=== PATIENT | female | born 1960 | race Caucasian/White ===

== ENCOUNTER 2024-10-03 07:50 | Inpatient (IN) | payer OTHER ==
[2024-10-03 09:28] LABS: VENOUS BASE EXCESS 7.2 mmol/L (-2-2); VENOUS O2 SATURATION 33.5 % (70-80); VENOUS PCO2 46.8 mmHg (38-52); VENOUS PH 7.453 (7.310-7.410)
[2024-10-03 09:32] LABS: BASO % 0.4 % (0-2.0); EOS % 0.4 % (0-4.5); HEMATOCRIT 29.1 % (32.4-45.2); HEMOGLOBIN 8.9 GM/dL (10.7-15.3); MCH 23.7 pg (25.7-33.7); MCHC 30.8 g/dl (32.0-36.0); MEAN CELL VOLUME 77.2 fl (80-96); MEAN PLT VOLUME 7.1 fl (7.5-11.1); MONO % 7.1 % (3.8-10.2); NEUT % 75.1 % (42.8-82.8); PLATELET COUNT 466 10^3/uL (134-434); RBC 3.77 M/mm3 (3.60-5.2); RDW 18.1 % (11.6-15.6); WHITE BLOOD COUNT 7.5 K/mm3 (4.0-10.0)
[2024-10-03 09:39] LABS: INR 1.58 (0.83-1.09); PROTHROMBIN TIME (PATIENT) 17.9 SEC (9.7-13.0)
[2024-10-03 09:42] LABS: ACTIVATED PTT 42.2 SECONDS (25.2-36.5)
[2024-10-03 09:56] LABS: CHLORIDE 98 mmol/L (98-107); POTASSIUM 2.8 mmol/L (3.5-5.1); SODIUM 137 mmol/L (136-145)
[2024-10-03 09:58] LABS: CALCIUM 7.9 mg/dL (8.5-10.1)
[2024-10-03 09:59] LABS: ALBUMIN 1.4 g/dl (3.4-5.0); ANION GAP 9 mmol/L (4-13); BLOOD UREA NITROGEN 9.6 mg/dL (7-18); CO2 31 mmol/L (21-32); GLUCOSE,RANDOM 182 mg/dL (74-106)
[2024-10-03 10:02] LABS: CREATININE 0.3 mg/dL (0.55-1.3); SGOT/AST 15 U/L (15-37); SGPT/ALT 14 U/L (13-61)
[2024-10-03] MEDS ORDERED: PIPERACILLIN/TAZOB 4.5 GM 4.5 GM/100 ML BAG IVPB ONE (10:02)
[2024-10-03] MEDS ORDERED: VANCOMYCIN 1 GRAM (PRE-DOCKED) 1,000 MG/250 ML BAG IVPB ONE (10:02)
[2024-10-03 10:04] LABS: BILIRUBIN,TOTAL 0.4 mg/dL (0.2-1); TOT PROT 6.7 g/dl (6.4-8.2)
[2024-10-03 10:05] LABS: ALK PHOS 107 U/L (45-117)
[2024-10-03] MEDS: PIPERACILLIN/TAZOB 4.5 GM 4.5 GM in DEXTROSE 5%-WATER 100 ML IVPB ONE (10:07)
[2024-10-03 10:30] LABS: MAGNESIUM 1.1 mg/dL (1.8-2.4)
[2024-10-03] MEDS ORDERED: KCL 10 MEQ IVPB 10 MEQ/100 ML INFUS.BAG IVPB SCH (10:30)
[2024-10-03] MEDS ORDERED: KCL 10 MEQ IVPB 10 MEQ/100 ML INFUS.BAG IVPB ONE ×4 (10:32→16:01)
[2024-10-03] MEDS: KCL 10 MEQ IVPB 10 MEQ/100 ML INFUS.BAG IVPB SCH ×2 (10:40→12:32)
[2024-10-03 11:04] LABS: ERYTHROCYTE SEDIMENTATION RATE 106 mm/hr (0-30)
[2024-10-03] MEDS ORDERED: MAGNESIUM SULFATE IN WATER 2 GM/50 ML IVPB IVPB ONE (11:21)
[2024-10-03] MEDS: MAGNESIUM SULF 50% (8.12 MEQ/2 ML-1 GM VIAL) IVPB ONE (11:33)
[2024-10-03] MEDS: VANCOMYCIN 1,000 MG in DEXTROSE 5%-WATER - 250 ML IVPB ONE (12:13)
[2024-10-03 14:25] LABS: EPI CELLS 0 /uL (0-25.1); HYALINE CASTS 2 /uL (0-3.1); URINE APPEARANCE CLOUDY; URINE BACTERIA >9,000 /uL (0-1359); URINE BILIRUBIN NEGATIVE (NEGATIVE); URINE COLOR YELLOW; URINE GLUCOSE (UA) 1+ (NEGATIVE); URINE KETONE NEGATIVE (NEGATIVE); URINE LEUK ESTERASE 3+ (NEGATIVE); URINE NITRITE NEGATIVE (NEGATIVE); URINE PROTEIN TRACE (NEGATIVE); URINE RBC 16 /uL (0-23.9); URINE UROBILINOGEN 0.2 mg/dL (0.2-1.0); URINE WBC 969 /uL (0-25.8)
[2024-10-03 14:45] LABS: YEAST NONE SEEN (NEGATIVE)
[2024-10-03] MEDS ORDERED: ACETAMINOPHEN 1000 MG/100 ML BAG IVPB PRN (22:11)
[2024-10-03] MEDS: D5-1/2NS+20 MEQ KCL - 20 MEQ/1,000 ML INFUS.BAG IV SCH (23:51)
[2024-10-04] MEDS: PIPERACILLIN/TAZOB 3.375 GM 50 ML IVPB SCH (02:17)
[2024-10-04] MEDS: MAGNESIUM 1GM/D5W 100ML - 100 ML IVPB IVPB ONE (08:57)
[2024-10-04] MEDS: POTASSIUM CHLORIDE ORAL LIQUID 20 MEQ/15 ML PO ONE ×2 (09:07→12:18)
[2024-10-04 09:57] LABS: BASO % 0.2 % (0-2.0); EOS % 0.3 % (0-4.5); HEMATOCRIT 26.8 % (32.4-45.2); HEMOGLOBIN 8.4 GM/dL (10.7-15.3); LYMPH % 13.3 % (8-40); MCH 23.5 pg (25.7-33.7); MCHC 31.2 g/dl (32.0-36.0); MEAN CELL VOLUME 75.1 fl (80-96); MEAN PLT VOLUME 7.1 fl (7.5-11.1); MONO % 5.7 % (3.8-10.2); NEUT % 80.5 % (42.8-82.8); PLATELET COUNT 488 10^3/uL (134-434); RBC 3.57 M/mm3 (3.60-5.2); RDW 17.9 % (11.6-15.6); WHITE BLOOD COUNT 7.6 K/mm3 (4.0-10.0)
[2024-10-04 10:13] LABS: CHLORIDE 101 mmol/L (98-107); SODIUM 139 mmol/L (136-145)
[2024-10-04 10:16] LABS: ALBUMIN 1.3 g/dl (3.4-5.0); ANION GAP 7 mmol/L (4-13); BLOOD UREA NITROGEN 3.2 mg/dL (7-18); CALCIUM 8.2 mg/dL (8.5-10.1); CO2 31 mmol/L (21-32); POTASSIUM 2.8 mmol/L (3.5-5.1)
[2024-10-04 10:17] LABS: GLUCOSE,RANDOM 68 mg/dL (74-106)
[2024-10-04 10:19] LABS: CREATININE < 0.2 mg/dL (0.55-1.3); SGOT/AST 9 U/L (15-37); SGPT/ALT 13 U/L (13-61)
[2024-10-04 10:20] LABS: BILIRUBIN,TOTAL 0.4 mg/dL (0.2-1)
[2024-10-04 10:21] LABS: TOT PROT 6.1 g/dl (6.4-8.2)
[2024-10-04 10:23] LABS: ALK PHOS 96 U/L (45-117)
[2024-10-04] MEDS: POTASSIUM CHLORIDE TABS 20 MEQ TABLET.ER (FP) PO SCH (10:56)
[2024-10-04] MEDS: PIPERACILLIN/TAZOB 3.375 GM 3.375 GM in DEXTROSE 5%-WATER - 50 ML IVPB SCH (14:08)
[2024-10-04] MEDS ORDERED: KCL 10 MEQ IVPB 10 MEQ/100 ML INFUS.BAG IVPB SCH (15:00)
[2024-10-04] MEDS ORDERED: KETAMINE HCL 200 MG/20 ML VIAL ONE (17:32)
[2024-10-04] MEDS ORDERED: PROPOFOL 20 ML ONE (17:33)
[2024-10-04] MEDS ORDERED: PIPERACILLIN/TAZOB 4.5 GM 4.5 GM/100 ML BAG IVPB SCH (18:00)
[2024-10-04] MEDS ORDERED: ONDANSETRON 4 MG/2 ML VIAL IVPUSH PRN ×2 (18:13→19:01)
[2024-10-04] MEDS ORDERED: LACTATED RINGERS SOLUTION 1,000 ML IV SCH ×2 (18:15→19:01)
[2024-10-04] MEDS ORDERED: ONDANSETRON 4 MG/2 ML VIAL ONE (18:17)
[2024-10-04] MEDS ORDERED: ACETAMINOPHEN 1000 MG/100 ML BAG IVPB PRN (19:01)
[2024-10-04] MEDS: D5-1/2NS+20 MEQ KCL - 20 MEQ/1,000 ML INFUS.BAG IV SCH (19:14)
[2024-10-05] MEDS: PIPERACILLIN/TAZOB 4.5 GM 4.5 GM/100 ML BAG IVPB SCH (03:07)
[2024-10-05] MEDS: ACETAMINOPHEN 1000 MG/100 ML BAG IVPB PRN (09:12)
[2024-10-05 09:17] LABS: BASO % 0.1 % (0-2.0); HEMATOCRIT 25.8 % (32.4-45.2); LYMPH % 10.7 % (8-40); MCH 23.6 pg (25.7-33.7); MCHC 31.1 g/dl (32.0-36.0); MEAN CELL VOLUME 75.8 fl (80-96); MEAN PLT VOLUME 7.1 fl (7.5-11.1); MONO % 3.6 % (3.8-10.2); NEUT % 85.6 % (42.8-82.8); PLATELET COUNT 550 10^3/uL (134-434); RBC 3.41 M/mm3 (3.60-5.2); RDW 17.7 % (11.6-15.6); WHITE BLOOD COUNT 9.6 K/mm3 (4.0-10.0)
[2024-10-05] MEDS: METOPROLOL TARTRATE 25 MG TABLET (FP) PO SCH (09:17)
[2024-10-05 09:19] LABS: INR 1.35 (0.83-1.09); PROTHROMBIN TIME (PATIENT) 15.4 SEC (9.7-13.0)
[2024-10-05 09:40] LABS: CHLORIDE 106 mmol/L (98-107); POTASSIUM 3.7 mmol/L (3.5-5.1); SODIUM 142 mmol/L (136-145)
[2024-10-05 09:46] LABS: ALBUMIN 1.5 g/dl (3.4-5.0); CALCIUM 8.1 mg/dL (8.5-10.1)
[2024-10-05 09:47] LABS: ANION GAP 7 mmol/L (4-13); CO2 28 mmol/L (21-32); GLUCOSE,RANDOM 61 mg/dL (74-106); MAGNESIUM 1.7 mg/dL (1.8-2.4)
[2024-10-05 09:48] LABS: BLOOD UREA NITROGEN 1.9 mg/dL (7-18); SGOT/AST 8 U/L (15-37); SGPT/ALT 11 U/L (13-61)
[2024-10-05 09:50] LABS: BILIRUBIN,TOTAL 0.3 mg/dL (0.2-1); CREATININE 0.3 mg/dL (0.55-1.3); PHOSPHOROUS 3.9 mg/dL (2.5-4.9); TOT PROT 6.1 g/dl (6.4-8.2)
[2024-10-05 09:52] LABS: ALK PHOS 110 U/L (45-117)
[2024-10-05 11:21] LABS: RETICULOCYTES 1.86 % (0.5-1.5)
[2024-10-05] MEDS: MAGNESIUM 2GM/50ML STERILE WATER IVPB IVPB ONE (13:15)
[2024-10-05] MEDS: SODIUM CHLORIDE 1,000 ML IV SCH (14:29)
[2024-10-05] MEDS: MEROPENEM-0.9% SODIUM CHLORIDE 1 GM/50 ML BAG IVPB SCH (17:43)
[2024-10-05] MEDS: ATORVASTATIN CA 40 MG TABLET (FP) PO SCH (23:27)
[2024-10-06 10:31] LABS: BASO % 0.3 % (0-2.0); EOS % 0.1 % (0-4.5); HEMATOCRIT 22.5 % (32.4-45.2); HEMOGLOBIN 7.1 GM/dL (10.7-15.3); LYMPH % 17.3 % (8-40); MCH 23.9 pg (25.7-33.7); MCHC 31.5 g/dl (32.0-36.0); MEAN CELL VOLUME 75.8 fl (80-96); MEAN PLT VOLUME 6.9 fl (7.5-11.1); MONO % 5.1 % (3.8-10.2); NEUT % 77.2 % (42.8-82.8); PLATELET COUNT 471 10^3/uL (134-434); RBC 2.96 M/mm3 (3.60-5.2); RDW 17.8 % (11.6-15.6); WHITE BLOOD COUNT 7.9 K/mm3 (4.0-10.0)
[2024-10-06 11:03] LABS: CHLORIDE 104 mmol/L (98-107); SODIUM 139 mmol/L (136-145)
[2024-10-06 11:05] LABS: ALBUMIN 1.3 g/dl (3.4-5.0); BLOOD UREA NITROGEN 1.8 mg/dL (7-18); CALCIUM 7.2 mg/dL (8.5-10.1); CO2 25 mmol/L (21-32); GLUCOSE,RANDOM 135 mg/dL (74-106); MAGNESIUM 1.4 mg/dL (1.8-2.4)
[2024-10-06 11:08] LABS: CREATININE < 0.2 mg/dL (0.55-1.3); SGOT/AST 9 U/L (15-37); SGPT/ALT 9 U/L (13-61)
[2024-10-06 11:09] LABS: PHOSPHOROUS 3.3 mg/dL (2.5-4.9)
[2024-10-06 11:11] LABS: ALK PHOS 89 U/L (45-117); BILIRUBIN,TOTAL 0.4 mg/dL (0.2-1); TOT PROT 5.4 g/dl (6.4-8.2)
[2024-10-06 11:28] LABS: ANION GAP 11 mmol/L (4-13); POTASSIUM 2.7 mmol/L (3.5-5.1)
[2024-10-06] MEDS: MAGNESIUM 2GM/50ML STERILE WATER IVPB IVPB ONE (12:03)
[2024-10-06] MEDS: POTASSIUM CHLORIDE ORAL LIQUID 20 MEQ/15 ML PO ONE (12:05)
[2024-10-06] MEDS ORDERED: MULTIVITAMINS THER W-MINERALS COMBO TABLET (FP) PO SCH (13:00)
[2024-10-06] MEDS: KCL 10 MEQ IVPB 10 MEQ/100 ML INFUS.BAG IVPB SCH ×2 (13:07→22:21)
[2024-10-06] MEDS: MULTIVITAMINS THER W-MINERALS COMBO TABLET (FP) PO SCH (13:24)
[2024-10-06] MEDS: HEPARIN NA (PORCINE) 5,000 UNITS/ML 1ML VIAL SQ SCH (15:03)
[2024-10-06] MEDS: SODIUM CHLORIDE 0.9% 250 ML INFUS.BAG IV ONE (17:30)
[2024-10-06] MEDS ORDERED: RAPID SEQUENCE INTUBATION KIT NR ONE (17:42)
[2024-10-06] MEDS ORDERED: PROPOFOL 1,000,000 MCG/100 ML VIAL ONE (18:19)
[2024-10-06] MEDS: PROPOFOL 1,000,000 MCG/100 ML VIAL IVPB SCH (18:34)
[2024-10-06] MEDS: AMINO ACIDS/PROTEIN HYDROLYS 30 ML LIQUID.PKT PO SCH (18:44)
[2024-10-06] MEDS: MAGNESIUM SULFATE IN WATER 2 GM/50 ML IVPB IVPB ONE (19:38)
[2024-10-06 20:37] LABS: ARTERIAL BLD GAS O2 SATURATION 99.9 % (95-98); ARTERIAL BLOOD GAS BASE EXCESS -2.2 mmol/L (-2-2); ARTERIAL BLOOD GAS PO2 433.4 mmHg (80-100); ARTERIAL BLOOD GAS pH 7.579 (7.350-7.450)
[2024-10-06 20:39] LABS: VENT MODE A/C; VENT RATE 12
[2024-10-06] MEDS: FENTANYL CITRATE/PF 50 MCG/ML VIAL IVPUSH PRN (21:38)
[2024-10-06 21:39] LABS: HEMATOCRIT 24.1 % (32.4-45.2); HEMOGLOBIN 7.3 GM/dL (10.7-15.3); MCH 22.9 pg (25.7-33.7); MCHC 30.2 g/dl (32.0-36.0); MEAN CELL VOLUME 75.8 fl (80-96); MEAN PLT VOLUME 6.9 fl (7.5-11.1); PLATELET COUNT 489 10^3/uL (134-434); RBC 3.18 M/mm3 (3.60-5.2); WHITE BLOOD COUNT 12.7 K/mm3 (4.0-10.0)
[2024-10-06 21:40] LABS: BASO % 0.1 % (0-2.0); HEMATOCRIT 23.3 % (32.4-45.2); HEMOGLOBIN 7.1 GM/dL (10.7-15.3); LYMPH % 9.3 % (8-40); MCH 23.1 pg (25.7-33.7); MCHC 30.6 g/dl (32.0-36.0); MEAN CELL VOLUME 75.5 fl (80-96); MEAN PLT VOLUME 6.9 fl (7.5-11.1); MONO % 5.6 % (3.8-10.2); PLATELET COUNT 492 10^3/uL (134-434); RBC 3.09 M/mm3 (3.60-5.2); RDW 18.4 % (11.6-15.6); WHITE BLOOD COUNT 13.7 K/mm3 (4.0-10.0)
[2024-10-06 21:57] LABS: CHLORIDE 104 mmol/L (98-107); INR 1.17 (0.83-1.09); PROTHROMBIN TIME (PATIENT) 13.2 SEC (9.7-13.0); SODIUM 139 mmol/L (136-145)
[2024-10-06 21:58] LABS: CALCIUM 7.2 mg/dL (8.5-10.1); POTASSIUM 2.8 mmol/L (3.5-5.1)
[2024-10-06 21:59] LABS: ACTIVATED PTT 28.8 SECONDS (25.2-36.5); ALBUMIN 1.4 g/dl (3.4-5.0); ANION GAP 13 mmol/L (4-13); BLOOD UREA NITROGEN 3.6 mg/dL (7-18); CO2 22 mmol/L (21-32); GLUCOSE,RANDOM 223 mg/dL (74-106); MAGNESIUM 2.3 mg/dL (1.8-2.4)
[2024-10-06 22:02] LABS: CREATININE 0.2 mg/dL (0.55-1.3); PHOSPHOROUS 2.4 mg/dL (2.5-4.9); SGOT/AST 8 U/L (15-37); SGPT/ALT 8 U/L (13-61)
[2024-10-06 22:03] LABS: PHOSPHOROUS 2.5 mg/dL (2.5-4.9)
[2024-10-06 22:04] LABS: BILIRUBIN,TOTAL 0.5 mg/dL (0.2-1); TOT PROT 5.7 g/dl (6.4-8.2)
[2024-10-06 22:05] LABS: ALK PHOS 87 U/L (45-117)
[2024-10-07 07:20] LABS: BASO % 0.3 % (0-2.0); EOS % 0.1 % (0-4.5); HEMOGLOBIN 7.1 GM/dL (10.7-15.3); LYMPH % 17.2 % (8-40); MCH 23.7 pg (25.7-33.7); MCHC 30.7 g/dl (32.0-36.0); MEAN PLT VOLUME 6.8 fl (7.5-11.1); MONO % 7.3 % (3.8-10.2); NEUT % 75.1 % (42.8-82.8); PLATELET COUNT 457 10^3/uL (134-434); RBC 2.99 M/mm3 (3.60-5.2); RDW 18.6 % (11.6-15.6); WHITE BLOOD COUNT 9.5 K/mm3 (4.0-10.0)
[2024-10-07 07:31] LABS: POTASSIUM 3.4 mmol/L (3.5-5.1)
[2024-10-07 07:35] LABS: ALBUMIN 1.4 g/dl (3.4-5.0); BLOOD UREA NITROGEN 4.7 mg/dL (7-18); CALCIUM 7.4 mg/dL (8.5-10.1)
[2024-10-07 07:38] LABS: CREATININE 0.3 mg/dL (0.55-1.3); PHOSPHOROUS 2.5 mg/dL (2.5-4.9)
[2024-10-07 07:40] LABS: BILIRUBIN,TOTAL 0.5 mg/dL (0.2-1); TOT PROT 5.6 g/dl (6.4-8.2)
[2024-10-07 09:21] LABS: ERYTHROCYTE SEDIMENTATION RATE 85 mm/hr (0-30)
[2024-10-07] MEDS: KCL 10 MEQ IVPB 10 MEQ/100 ML INFUS.BAG IVPB SCH (09:21)
[2024-10-07 10:49] LABS: ARTERIAL BLD GAS O2 SATURATION 99.5 % (95-98); ARTERIAL BLOOD GAS BASE EXCESS -0.7 mmol/L (-2-2); ARTERIAL BLOOD GAS PO2 189.6 mmHg (80-100); ARTERIAL BLOOD GAS pH 7.531 (7.350-7.450)
[2024-10-07 11:02] LABS: ALLENS TEST POSITIVE
[2024-10-07 11:04] LABS: VENT MODE A/C
[2024-10-07 11:09] LABS: VENT RATE 12
[2024-10-07] MEDS ORDERED: levETIRAcetam 500 MG/5 ML INJECTION VIAL IVPB ONE (15:18)
[2024-10-07] MEDS: COLLAGENASE CLOSTRIDIUM HIST. 30 GRAMS TUBE TP SCH (18:02)
[2024-10-07 18:36] LABS: POTASSIUM 4.1 mmol/L (3.5-5.1)
[2024-10-07 18:38] LABS: CALCIUM 8.1 mg/dL (8.5-10.1)
[2024-10-07 18:39] LABS: ALBUMIN 1.5 g/dl (3.4-5.0)
[2024-10-07 18:42] LABS: CREATININE 0.3 mg/dL (0.55-1.3)
[2024-10-07 18:43] LABS: BILIRUBIN,TOTAL 0.5 mg/dL (0.2-1)
[2024-10-07 18:44] LABS: TOT PROT 5.6 g/dl (6.4-8.2)
[2024-10-07] MEDS: INSULIN ASPART SLIDING SCALE (NOVOLOG) 1 VIAL SQ SCH (22:02)
[2024-10-07] MEDS: AMINO ACIDS 4.25%/D5W 1,000 ML IV SCH (22:03)
[2024-10-08 07:51] LABS: HEMATOCRIT 26.6 % (32.4-45.2); HEMOGLOBIN 8.1 GM/dL (10.7-15.3); MCH 23.5 pg (25.7-33.7); MCHC 30.7 g/dl (32.0-36.0); MEAN CELL VOLUME 76.8 fl (80-96); MEAN PLT VOLUME 6.8 fl (7.5-11.1); PLATELET COUNT 486 10^3/uL (134-434); RBC 3.46 M/mm3 (3.60-5.2); RDW 18.5 % (11.6-15.6); WHITE BLOOD COUNT 11.9 K/mm3 (4.0-10.0)
[2024-10-08 07:58] LABS: POTASSIUM 3.9 mmol/L (3.5-5.1)
[2024-10-08 08:05] LABS: CREATININE 0.4 mg/dL (0.55-1.3); PHOSPHOROUS 2.5 mg/dL (2.5-4.9)
[2024-10-08 08:06] LABS: ALBUMIN 1.6 g/dl (3.4-5.0); CALCIUM 8.1 mg/dL (8.5-10.1)
[2024-10-08 08:07] LABS: BILIRUBIN,TOTAL 0.4 mg/dL (0.2-1); BLOOD UREA NITROGEN 7.8 mg/dL (7-18); MAGNESIUM 1.7 mg/dL (1.8-2.4); TOT PROT 6.1 g/dl (6.4-8.2)
[2024-10-08] MEDS ORDERED: PROPOFOL 1,000,000 MCG/100 ML VIAL IVPB SCH (14:33)
[2024-10-08] MEDS: IRON SUCROSE INJECTION 200 MG in SODIUM CHLORIDE 100 ML IVPB ONE (15:28)
[2024-10-08] MEDS: INSULIN ASPART SLIDING SCALE (NOVOLOG) 1 VIAL SQ SCH (17:01)
[2024-10-08] MEDS: AMINO ACIDS/PROTEIN HYDROLYS 30 ML LIQUID.PKT PO SCH (17:10)
[2024-10-08] MEDS: MEROPENEM-0.9% SODIUM CHLORIDE 1 GM/50 ML BAG IVPB SCH (17:58)
[2024-10-08] MEDS: AMINO ACIDS 4.25%/D5W 1,000 ML IV SCH (18:35)
[2024-10-08] MEDS: HEPARIN NA (PORCINE) 5,000 UNITS/ML 1ML VIAL SQ SCH (22:55)
[2024-10-08] MEDS: ATORVASTATIN CA 40 MG TABLET (FP) PO SCH (23:14)
[2024-10-08] MEDS: METOPROLOL TARTRATE 25 MG TABLET (FP) PO SCH (23:15)
[2024-10-09] MEDS ORDERED: ACETAMINOPHEN INJECTION 100 ML ONE (05:55)
[2024-10-09] MEDS: ACETAMINOPHEN 1000 MG/100 ML BAG IVPB PRN (06:02)
[2024-10-09] MEDS: SODIUM CHLORIDE 500 ML IV STA (06:46)
[2024-10-09 07:17] LABS: ARTERIAL BLD GAS O2 SATURATION 95.9 % (95-98); ARTERIAL BLOOD GAS BASE EXCESS 2.9 mmol/L (-2-2); ARTERIAL BLOOD GAS PO2 82.4 mmHg (80-100); ARTERIAL BLOOD GAS pH 7.389 (7.350-7.450)
[2024-10-09 07:18] LABS: ALLENS TEST POSITIVE
[2024-10-09] MEDS: PANTOPRAZOLE SODIUM 40 MG VIAL IVPUSH SCH (09:29)
[2024-10-09] MEDS: COLLAGENASE CLOSTRIDIUM HIST. 30 GRAMS TUBE TP SCH (09:30)
[2024-10-09] MEDS: MULTIVITAMINS THER W-MINERALS COMBO TABLET (FP) PO SCH (09:30)
[2024-10-09 10:24] LABS: HEMATOCRIT 21.2 % (32.4-45.2); MCHC 31.1 g/dl (32.0-36.0); MEAN PLT VOLUME 6.8 fl (7.5-11.1); PLATELET COUNT 379 10^3/uL (134-434); RBC 2.75 M/mm3 (3.60-5.2); WHITE BLOOD COUNT 8.7 K/mm3 (4.0-10.0)
[2024-10-09 10:53] LABS: CHLORIDE 106 mmol/L (98-107); SODIUM 142 mmol/L (136-145)
[2024-10-09 10:55] LABS: ALBUMIN 1.4 g/dl (3.4-5.0); BLOOD UREA NITROGEN 6.7 mg/dL (7-18); CALCIUM 7.9 mg/dL (8.5-10.1); CO2 30 mmol/L (21-32)
[2024-10-09 10:56] LABS: GLUCOSE,RANDOM 186 mg/dL (74-106)
[2024-10-09 10:58] LABS: SGPT/ALT < 6 U/L (13-61)
[2024-10-09 10:59] LABS: CREATININE 0.2 mg/dL (0.55-1.3); HEMOGLOBIN 6.6 GM/dL (10.7-15.3); SGOT/AST 6 U/L (15-37)
[2024-10-09 11:00] LABS: BILIRUBIN,TOTAL 0.2 mg/dL (0.2-1); TOT PROT 5.4 g/dl (6.4-8.2)
[2024-10-09 11:01] LABS: ALK PHOS 78 U/L (45-117)
[2024-10-09 11:02] LABS: MAGNESIUM 1.4 mg/dL (1.8-2.4)
[2024-10-09 11:04] LABS: PHOSPHOROUS 2.1 mg/dL (2.5-4.9)
[2024-10-09 11:05] LABS: ANION GAP 7 mmol/L (4-13); POTASSIUM 2.9 mmol/L (3.5-5.1)
[2024-10-09] MEDS ORDERED: INSULIN ASPART SLIDING SCALE (NOVOLOG) 1 VIAL SQ ONE (11:41)
[2024-10-09] MEDS: KCL 10 MEQ IVPB 10 MEQ/100 ML INFUS.BAG IVPB SCH ×2 (11:50→21:09)
[2024-10-09] MEDS ORDERED: PHENYLEPHRINE HCL 10 MG/1 ML SINGLE DOSE VIAL ONE (14:16)
[2024-10-09] MEDS ORDERED: ROCURONIUM BROMIDE 50 MG/5 ML SYRINGE ONE ×2 (14:18→14:31)
[2024-10-09] MEDS ORDERED: ETOMIDATE 20 MG/10 ML VIAL IVPUSH ONE (14:31)
[2024-10-09] MEDS ORDERED: VASopressin 20 UNITS/ML VIAL IV ONE (14:34)
[2024-10-09] MEDS ORDERED: BUPIVACAINE HCL/PF 0.25% (2.5MG/ML) 10 ML VIAL ONE (14:45)
[2024-10-09] MEDS ORDERED: SUCCINYLCHOLINE CHLORIDE 200 MG/10 ML SYRINGE ONE (15:05)
[2024-10-09] MEDS ORDERED: SUGAMMADEX SODIUM 200 MG/2 ML VIAL ONE (15:05)
[2024-10-09] MEDS ORDERED: MIDAZOLAM HCL 2 MG/2 ML SINGLE DOSE VIAL ONE (15:16)
[2024-10-09] MEDS ORDERED: PROMETHAZINE HCL 25 MG/1 ML VIAL IVPB PRN ×2 (15:43→18:37)
[2024-10-09] MEDS ORDERED: LACTATED RINGERS SOLUTION 1,000 ML IV SCH ×2 (15:45→18:37)
[2024-10-09] MEDS ORDERED: PROPOFOL 1,000,000 MCG/100 ML VIAL ONE (16:00)
[2024-10-09] MEDS ORDERED: PROPOFOL 1,000,000 MCG/100 ML VIAL IVPB SCH (16:00)
[2024-10-09] MEDS: PROPOFOL 1,000,000 MCG/100 ML VIAL IVPB SCH (18:00)
[2024-10-09 18:31] LABS: ARTERIAL BLD GAS O2 SATURATION 99.6 % (95-98); ARTERIAL BLOOD GAS BASE EXCESS 0.9 mmol/L (-2-2); ARTERIAL BLOOD GAS PO2 228.2 mmHg (80-100)
[2024-10-09 18:33] LABS: ALLENS TEST POSITIVE
[2024-10-09 18:34] LABS: VENT MODE V-AC; VENT RATE 10
[2024-10-09 20:16] LABS: BASO % 0.5 % (0-2.0); HEMATOCRIT 29.5 % (32.4-45.2); HEMOGLOBIN 9.5 GM/dL (10.7-15.3); LYMPH % 9.4 % (8-40); MCH 24.5 pg (25.7-33.7); MCHC 32.3 g/dl (32.0-36.0); MEAN CELL VOLUME 75.9 fl (80-96); MEAN PLT VOLUME 6.3 fl (7.5-11.1); MONO % 3.6 % (3.8-10.2); NEUT % 86.5 % (42.8-82.8); PLATELET COUNT 369 10^3/uL (134-434); RBC 3.89 M/mm3 (3.60-5.2); RDW 17.8 % (11.6-15.6); WHITE BLOOD COUNT 17.1 K/mm3 (4.0-10.0)
[2024-10-09 20:29] LABS: POTASSIUM 3.2 mmol/L (3.5-5.1)
[2024-10-09 20:31] LABS: ALBUMIN 1.4 g/dl (3.4-5.0); CALCIUM 7.7 mg/dL (8.5-10.1)
[2024-10-09 20:32] LABS: BLOOD UREA NITROGEN 7.7 mg/dL (7-18); MAGNESIUM 1.2 mg/dL (1.8-2.4)
[2024-10-09 20:35] LABS: CREATININE 0.2 mg/dL (0.55-1.3)
[2024-10-09 20:36] LABS: BILIRUBIN,TOTAL 0.9 mg/dL (0.2-1); TOT PROT 5.1 g/dl (6.4-8.2)
[2024-10-09] MEDS: MEROPENEM-0.9% SODIUM CHLORIDE 1 GM/50 ML BAG IVPB SCH (21:07)
[2024-10-09] MEDS: ALBUMIN HUMAN 5% 500 ML IV SOLUTION IV ONE (21:08)
[2024-10-09] MEDS ORDERED: ATORVASTATIN CA 40 MG TABLET (FP) PO SCH (22:00)
[2024-10-09] MEDS ORDERED: INSULIN ASPART SLIDING SCALE (NOVOLOG) 1 VIAL SQ SCH (22:00)
[2024-10-09] MEDS ORDERED: METOPROLOL TARTRATE 25 MG TABLET (FP) PO SCH (22:00)
[2024-10-09] MEDS: MAGNESIUM SULFATE IN WATER 2 GM/50 ML IVPB IVPB ONE (22:11)
[2024-10-09] MEDS: FENTANYL NS IVPB 500 MCG/100 ML BAG IVPB SCH (22:15)
[2024-10-09] MEDS: HEPARIN NA (PORCINE) 5,000 UNITS/ML 1ML VIAL SQ SCH (23:09)
[2024-10-09] MEDS: MUPIROCIN 2% TOPICAL OINTMENT FOR DECOLONIZATION NS SCH (23:10)
[2024-10-09] MEDS: INSULIN ASPART SLIDING SCALE (NOVOLOG) 1 VIAL SQ SCH (23:10)
[2024-10-09] MEDS: CHLORHEXIDINE GLUCONATE 4% CLEANSER FOR DECOLONIZATION TP SCH (23:10)
[2024-10-09] MEDS: POTASSIUM PHOSPHATE 30 MM in SODIUM CHLORIDE 250 ML IVPB ONE (23:48)
[2024-10-10] MEDS: MEROPENEM-0.9% SODIUM CHLORIDE 1 GM/50 ML BAG IVPB SCH (01:20)
[2024-10-10 06:31] LABS: ARTERIAL BLOOD GAS BASE EXCESS -2.3 mmol/L (-2-2); ARTERIAL BLOOD GAS PO2 63.2 mmHg (80-100); ARTERIAL BLOOD GAS pH 7.427 (7.350-7.450)
[2024-10-10 06:33] LABS: ALLENS TEST POSITIVE
[2024-10-10 06:34] LABS: VENT MODE V-AC; VENT RATE 18
[2024-10-10 07:40] LABS: BASO % 0.1 % (0-2.0); HEMATOCRIT 23.5 % (32.4-45.2); HEMOGLOBIN 7.6 GM/dL (10.7-15.3); LYMPH % 10.4 % (8-40); MCH 24.6 pg (25.7-33.7); MCHC 32.3 g/dl (32.0-36.0); MEAN CELL VOLUME 76.3 fl (80-96); MEAN PLT VOLUME 6.9 fl (7.5-11.1); MONO % 3.3 % (3.8-10.2); NEUT % 86.2 % (42.8-82.8); PLATELET COUNT 336 10^3/uL (134-434); RBC 3.09 M/mm3 (3.60-5.2); WHITE BLOOD COUNT 11.9 K/mm3 (4.0-10.0)
[2024-10-10 07:55] LABS: CHLORIDE 109 mmol/L (98-107); POTASSIUM 3.8 mmol/L (3.5-5.1); SODIUM 143 mmol/L (136-145)
[2024-10-10 08:01] LABS: ANION GAP 10 mmol/L (4-13); BLOOD UREA NITROGEN 5.4 mg/dL (7-18); CALCIUM 7.7 mg/dL (8.5-10.1); CO2 25 mmol/L (21-32); MAGNESIUM 1.8 mg/dL (1.8-2.4); SGOT/AST 8 U/L (15-37)
[2024-10-10 08:02] LABS: GLUCOSE,RANDOM 241 mg/dL (74-106)
[2024-10-10 08:03] LABS: BILIRUBIN,TOTAL 1.1 mg/dL (0.2-1); TOT PROT 5.1 g/dl (6.4-8.2)
[2024-10-10 08:04] LABS: ALK PHOS 54 U/L (45-117)
[2024-10-10 08:05] LABS: CREATININE 0.2 mg/dL (0.55-1.3); PHOSPHOROUS 3.8 mg/dL (2.5-4.9)
[2024-10-10 08:11] LABS: ALBUMIN 2.2 g/dl (3.4-5.0); SGPT/ALT < 6 U/L (13-61)
[2024-10-10] MEDS: AMINO ACIDS/PROTEIN HYDROLYS 30 ML LIQUID.PKT PO SCH (08:35)
[2024-10-10] MEDS: PANTOPRAZOLE SODIUM 40 MG VIAL IVPUSH SCH (09:42)
[2024-10-10] MEDS: MULTIVITAMINS THER W-MINERALS COMBO TABLET (FP) PO SCH (09:43)
[2024-10-10] MEDS: LACTATED RINGERS SOLUTION 1,000 ML/1,000 ML INFUS.BAG IV SCH (09:53)
[2024-10-10] MEDS ORDERED: LACTATED RINGERS SOLUTION 1,000 ML/1,000 ML INFUS.BAG IV SCH (10:00)
[2024-10-10 13:41] LABS: BASO % 0.1 % (0-2.0); EOS % 0.1 % (0-4.5); HEMATOCRIT 23.3 % (32.4-45.2); HEMOGLOBIN 7.7 GM/dL (10.7-15.3); MCH 24.7 pg (25.7-33.7); MCHC 32.8 g/dl (32.0-36.0); MEAN CELL VOLUME 75.4 fl (80-96); MEAN PLT VOLUME 6.1 fl (7.5-11.1); MONO % 4.3 % (3.8-10.2); NEUT % 82.5 % (42.8-82.8); PLATELET COUNT 312 10^3/uL (134-434); RDW 18.1 % (11.6-15.6); WHITE BLOOD COUNT 8.3 K/mm3 (4.0-10.0)
[2024-10-10] MEDS: AMINO ACIDS 4.25%/D5W 1,000 ML IV SCH (19:10)
[2024-10-10] MEDS: COLLAGENASE CLOSTRIDIUM HIST. 30 GRAMS TUBE TP SCH (19:53)
[2024-10-11 07:31] LABS: VENOUS BASE EXCESS 2.9 mmol/L (-2-2); VENOUS O2 SATURATION 85.9 % (70-80); VENOUS PCO2 39.3 mmHg (38-52); VENOUS PH 7.455 (7.310-7.410)
[2024-10-11 07:48] LABS: CHLORIDE 109 mmol/L (98-107); SODIUM 144 mmol/L (136-145)
[2024-10-11 07:52] LABS: ALBUMIN 1.8 g/dl (3.4-5.0); ANION GAP 6 mmol/L (4-13); BLOOD UREA NITROGEN 7.5 mg/dL (7-18); CALCIUM 7.9 mg/dL (8.5-10.1); CO2 29 mmol/L (21-32); GLUCOSE,RANDOM 192 mg/dL (74-106); MAGNESIUM 1.5 mg/dL (1.8-2.4)
[2024-10-11 07:55] LABS: CREATININE 0.3 mg/dL (0.55-1.3); PHOSPHOROUS 1.8 mg/dL (2.5-4.9); SGOT/AST < 3 U/L (15-37); SGPT/ALT 8 U/L (13-61)
[2024-10-11 07:56] LABS: BILIRUBIN,TOTAL 0.7 mg/dL (0.2-1); TOT PROT 4.9 g/dl (6.4-8.2)
[2024-10-11 07:57] LABS: ALK PHOS 56 U/L (45-117)
[2024-10-11 08:22] LABS: BASO % 0.1 % (0-2.0); HEMATOCRIT 22.8 % (32.4-45.2); HEMOGLOBIN 7.6 GM/dL (10.7-15.3); LYMPH % 13.1 % (8-40); MCH 25.3 pg (25.7-33.7); MCHC 33.3 g/dl (32.0-36.0); MEAN CELL VOLUME 75.9 fl (80-96); MEAN PLT VOLUME 6.8 fl (7.5-11.1); MONO % 3.8 % (3.8-10.2); PLATELET COUNT 277 10^3/uL (134-434); RBC 3.01 M/mm3 (3.60-5.2); WHITE BLOOD COUNT 10.6 K/mm3 (4.0-10.0)
[2024-10-11] MEDS: MAGNESIUM 2GM/50ML STERILE WATER IVPB IVPB ONE (10:10)
[2024-10-11] MEDS: KCL 10 MEQ IVPB 10 MEQ/100 ML INFUS.BAG IVPB SCH (10:10)
[2024-10-11] MEDS ORDERED: RAPID SEQUENCE INTUBATION KIT NR ONE (13:42)
[2024-10-11] MEDS: VANCOMYCIN/WATER FOR INJ (PEG) 1,000 MG/200 ML BAG IVPB SCH (14:29)
[2024-10-11] MEDS: POTASSIUM PHOSPHATE 30 MM in SODIUM CHLORIDE 250 ML IVPB ONE (16:27)
[2024-10-11 17:15] LABS: ARTERIAL BLD GAS O2 SATURATION 99.6 % (95-98); ARTERIAL BLOOD GAS BASE EXCESS 1.4 mmol/L (-2-2); ARTERIAL BLOOD GAS PO2 271.2 mmHg (80-100); ARTERIAL BLOOD GAS pH 7.386 (7.350-7.450)
[2024-10-11 17:21] LABS: ALLENS TEST POSITIVE
[2024-10-11 17:23] LABS: VENT MODE A/C; VENT RATE 18
[2024-10-12 06:38] LABS: EOS % 0.2 % (0-4.5); HEMATOCRIT 23.1 % (32.4-45.2); HEMOGLOBIN 7.4 GM/dL (10.7-15.3); LYMPH % 10.2 % (8-40); MCH 24.4 pg (25.7-33.7); MCHC 32.1 g/dl (32.0-36.0); MEAN CELL VOLUME 76.1 fl (80-96); MEAN PLT VOLUME 6.9 fl (7.5-11.1); MONO % 2.1 % (3.8-10.2); NEUT % 87.5 % (42.8-82.8); PLATELET COUNT 216 10^3/uL (134-434); RBC 3.04 M/mm3 (3.60-5.2); RDW 17.9 % (11.6-15.6); WHITE BLOOD COUNT 13.4 K/mm3 (4.0-10.0)
[2024-10-12 06:41] LABS: CHLORIDE 107 mmol/L (98-107); POTASSIUM 3.3 mmol/L (3.5-5.1); SODIUM 142 mmol/L (136-145)
[2024-10-12 06:44] LABS: ALBUMIN 1.5 g/dl (3.4-5.0); ANION GAP 8 mmol/L (4-13); BLOOD UREA NITROGEN 11.1 mg/dL (7-18); CALCIUM 7.3 mg/dL (8.5-10.1); CO2 27 mmol/L (21-32); GLUCOSE,RANDOM 165 mg/dL (74-106); MAGNESIUM 1.6 mg/dL (1.8-2.4)
[2024-10-12 06:47] LABS: CREATININE 0.2 mg/dL (0.55-1.3); PHOSPHOROUS 2.2 mg/dL (2.5-4.9); SGOT/AST < 3 U/L (15-37); SGPT/ALT 8 U/L (13-61)
[2024-10-12 06:49] LABS: BILIRUBIN,TOTAL 0.4 mg/dL (0.2-1); TOT PROT 4.7 g/dl (6.4-8.2)
[2024-10-12 06:50] LABS: ALK PHOS 60 U/L (45-117)
[2024-10-12] MEDS: MAGNESIUM 2GM/50ML STERILE WATER IVPB IVPB ONE (08:58)
[2024-10-12] MEDS ORDERED: METOPROLOL TARTRATE 5 MG/5 ML VIAL ONE (09:51)
[2024-10-12] MEDS: KCL 20 MEQ PREMIX BAG 20 MEQ/100 ML INFUS.BAG IVPB SCH (09:56)
[2024-10-12] MEDS: METOPROLOL TARTRATE 5 MG/5 ML VIAL IVPUSH ONE (09:56)
[2024-10-12] MEDS: POTASSIUM PHOSPHATE 30 MM in SODIUM CHLORIDE 250 ML IVPB ONE (10:47)
[2024-10-12] MEDS: DEXMEDETOMIDINE PREMIX 400 MCG/100 ML BAG IVPB SCH (12:00)
[2024-10-12] MEDS: ACETAMINOPHEN 1000 MG/100 ML BAG IVPB PRN (13:08)
[2024-10-12] MEDS: METOPROLOL TARTRATE 25 MG TABLET (FP) PO SCH (15:51)
[2024-10-12] MEDS: ENOXAPARIN NA (PORCINE) 60 MG/0.6 ML DISP.SYRIN SQ SCH (21:25)
[2024-10-12] MEDS ORDERED: ENOXAPARIN NA (PORCINE) 30 MG/0.3 ML DISP.SYRIN SQ SCH (22:00)
[2024-10-13 07:52] LABS: BASO % 0.2 % (0-2.0); HEMATOCRIT 25.1 % (32.4-45.2); HEMOGLOBIN 7.8 GM/dL (10.7-15.3); LYMPH % 7.1 % (8-40); MCH 24.1 pg (25.7-33.7); MCHC 31.2 g/dl (32.0-36.0); MEAN CELL VOLUME 77.4 fl (80-96); MEAN PLT VOLUME 7.5 fl (7.5-11.1); MONO % 2.8 % (3.8-10.2); NEUT % 89.9 % (42.8-82.8); PLATELET COUNT 225 10^3/uL (134-434); RBC 3.25 M/mm3 (3.60-5.2); RDW 18.6 % (11.6-15.6); WHITE BLOOD COUNT 15.4 K/mm3 (4.0-10.0)
[2024-10-13 08:07] LABS: CHLORIDE 106 mmol/L (98-107); POTASSIUM 4.2 mmol/L (3.5-5.1); SODIUM 142 mmol/L (136-145)
[2024-10-13 08:20] LABS: ALBUMIN 1.6 g/dl (3.4-5.0); ANION GAP 9 mmol/L (4-13); BLOOD UREA NITROGEN 9.8 mg/dL (7-18); CALCIUM 7.9 mg/dL (8.5-10.1); CO2 28 mmol/L (21-32); GLUCOSE,RANDOM 142 mg/dL (74-106)
[2024-10-13 08:23] LABS: CREATININE < 0.2 mg/dL (0.55-1.3); PHOSPHOROUS 2.1 mg/dL (2.5-4.9); SGOT/AST < 3 U/L (15-37); SGPT/ALT < 6 U/L (13-61)
[2024-10-13 08:24] LABS: BILIRUBIN,TOTAL 0.5 mg/dL (0.2-1); TOT PROT 5.2 g/dl (6.4-8.2)
[2024-10-13 08:25] LABS: ALK PHOS 76 U/L (45-117)
[2024-10-13] MEDS: FUROSEMIDE 40 MG/4 ML INJECTABLE VIAL IVPUSH ONE (11:15)
[2024-10-13] MEDS: SODIUM PHOSPHATE - 30 MM in DEXTROSE 5%-WATER - 250 ML IVPB ONE (14:28)
[2024-10-13] MEDS: fentaNYL CITRATE 250 MCG/5 ML VIAL IVPUSH PRN (14:41)
[2024-10-14 08:59] LABS: BASO % 0.1 % (0-2.0); EOS % 0.1 % (0-4.5); HEMATOCRIT 25.6 % (32.4-45.2); HEMOGLOBIN 7.9 GM/dL (10.7-15.3); LYMPH % 8.1 % (8-40); MCH 23.9 pg (25.7-33.7); MEAN CELL VOLUME 77.1 fl (80-96); MEAN PLT VOLUME 7.4 fl (7.5-11.1); MONO % 3.7 % (3.8-10.2); PLATELET COUNT 258 10^3/uL (134-434); RBC 3.31 M/mm3 (3.60-5.2); RDW 18.9 % (11.6-15.6)
[2024-10-14 09:47] LABS: CHLORIDE 105 mmol/L (98-107); SODIUM 142 mmol/L (136-145)
[2024-10-14 09:50] LABS: ALBUMIN 1.5 g/dl (3.4-5.0); ANION GAP 7 mmol/L (4-13); BLOOD UREA NITROGEN 10.8 mg/dL (7-18); CO2 30 mmol/L (21-32); GLUCOSE,RANDOM 180 mg/dL (74-106); MAGNESIUM 1.8 mg/dL (1.8-2.4)
[2024-10-14 09:53] LABS: CREATININE < 0.2 mg/dL (0.55-1.3); PHOSPHOROUS 2.4 mg/dL (2.5-4.9); SGOT/AST 3 U/L (15-37); SGPT/ALT 6 U/L (13-61)
[2024-10-14 09:54] LABS: BILIRUBIN,TOTAL 0.5 mg/dL (0.2-1); TOT PROT 5.1 g/dl (6.4-8.2)
[2024-10-14 09:56] LABS: ALK PHOS 77 U/L (45-117)
[2024-10-14] MEDS: KCL 10 MEQ IVPB 10 MEQ/100 ML INFUS.BAG IVPB SCH (14:31)
[2024-10-14] MEDS: POTASSIUM PHOSPHATE 30 MM in SODIUM CHLORIDE 250 ML IVPB ONE (15:15)
[2024-10-14] MEDS ORDERED: KCL 20 MEQ PREMIX BAG 20 MEQ/100 ML INFUS.BAG IVPB SCH (15:15)
[2024-10-14 20:45] LABS: CHLORIDE 106 mmol/L (98-107); POTASSIUM 3.6 mmol/L (3.5-5.1); SODIUM 142 mmol/L (136-145)
[2024-10-14 20:46] LABS: CALCIUM 7.9 mg/dL (8.5-10.1)
[2024-10-14 20:47] LABS: ANION GAP 7 mmol/L (4-13); BLOOD UREA NITROGEN 14.6 mg/dL (7-18); CO2 29 mmol/L (21-32); GLUCOSE,RANDOM 202 mg/dL (74-106); MAGNESIUM 1.7 mg/dL (1.8-2.4)
[2024-10-14 20:50] LABS: CREATININE < 0.2 mg/dL (0.55-1.3)
[2024-10-14] MEDS: MAGNESIUM SULFATE IN WATER 2 GM/50 ML IVPB IVPB ONE (22:49)
[2024-10-15] MEDS: SODIUM PHOSPHATE - 30 MM in SODIUM CHLORIDE 250 ML IVPB ONE (02:03)
[2024-10-15 07:53] LABS: BASO % 0.1 % (0-2.0); EOS % 0.5 % (0-4.5); HEMATOCRIT 25.6 % (32.4-45.2); LYMPH % 12.8 % (8-40); MCH 24.3 pg (25.7-33.7); MCHC 31.2 g/dl (32.0-36.0); MEAN CELL VOLUME 77.8 fl (80-96); MEAN PLT VOLUME 7.4 fl (7.5-11.1); NEUT % 81.6 % (42.8-82.8); PLATELET COUNT 252 10^3/uL (134-434); RBC 3.29 M/mm3 (3.60-5.2); RDW 18.8 % (11.6-15.6); WHITE BLOOD COUNT 9.9 K/mm3 (4.0-10.0)
[2024-10-15 08:04] LABS: CHLORIDE 106 mmol/L (98-107); POTASSIUM 3.1 mmol/L (3.5-5.1); SODIUM 145 mmol/L (136-145)
[2024-10-15 08:06] LABS: ALBUMIN 1.5 g/dl (3.4-5.0)
[2024-10-15 08:07] LABS: BLOOD UREA NITROGEN 13.2 mg/dL (7-18); CALCIUM 7.5 mg/dL (8.5-10.1)
[2024-10-15 08:08] LABS: ANION GAP 7 mmol/L (4-13); CO2 32 mmol/L (21-32); GLUCOSE,RANDOM 154 mg/dL (74-106); MAGNESIUM 2.1 mg/dL (1.8-2.4)
[2024-10-15 08:11] LABS: BILIRUBIN,TOTAL 0.3 mg/dL (0.2-1); PHOSPHOROUS 3.8 mg/dL (2.5-4.9); SGOT/AST < 3 U/L (15-37); SGPT/ALT < 6 U/L (13-61)
[2024-10-15 08:13] LABS: ALK PHOS 79 U/L (45-117); TOT PROT 5.2 g/dl (6.4-8.2)
[2024-10-15 08:14] LABS: CREATININE < 0.2 mg/dL (0.55-1.3)
[2024-10-15] MEDS: POTASSIUM CHLORIDE ORAL LIQUID 20 MEQ/15 ML PEG SCH (10:30)
[2024-10-15] MEDS: KCL 20 MEQ PREMIX BAG 20 MEQ/100 ML INFUS.BAG IVPB SCH (11:51)
[2024-10-15] MEDS: ALBUTEROL SO4 2.5/IPRATROPIUM 0.5 INH SOL 3 ML VIAL.NEB. NEB SCH (12:13)
[2024-10-16 09:49] LABS: BASO % 0.1 % (0-2.0); EOS % 0.2 % (0-4.5); HEMOGLOBIN 7.7 GM/dL (10.7-15.3); LYMPH % 8.7 % (8-40); MCH 24.3 pg (25.7-33.7); MCHC 30.7 g/dl (32.0-36.0); MEAN CELL VOLUME 79.1 fl (80-96); MEAN PLT VOLUME 7.6 fl (7.5-11.1); MONO % 5.5 % (3.8-10.2); NEUT % 85.5 % (42.8-82.8); PLATELET COUNT 227 10^3/uL (134-434); RBC 3.16 M/mm3 (3.60-5.2); RDW 18.9 % (11.6-15.6); WHITE BLOOD COUNT 10.1 K/mm3 (4.0-10.0)
[2024-10-16] MEDS: AMINO ACIDS/PROTEIN HYDROLYS 30 ML LIQUID.PKT PEG SCH (09:59)
[2024-10-16] MEDS: POTASSIUM CHLORIDE ORAL LIQUID 20 MEQ/15 ML PEG ONE (09:59)
[2024-10-16 10:02] LABS: POTASSIUM 4.4 mmol/L (3.5-5.1)
[2024-10-16 10:07] LABS: ALBUMIN 1.4 g/dl (3.4-5.0); BLOOD UREA NITROGEN 15.8 mg/dL (7-18); CALCIUM 7.7 mg/dL (8.5-10.1)
[2024-10-16 10:10] LABS: CREATININE 0.2 mg/dL (0.55-1.3)
[2024-10-16 10:11] LABS: PHOSPHOROUS 1.6 mg/dL (2.5-4.9)
[2024-10-16 10:12] LABS: BILIRUBIN,TOTAL 0.1 mg/dL (0.2-1); TOT PROT 5.1 g/dl (6.4-8.2)
[2024-10-16 10:38] LABS: ARTERIAL BLD GAS O2 SATURATION 99.2 % (95-98); ARTERIAL BLOOD GAS BASE EXCESS 4.5 mmol/L (-2-2); ARTERIAL BLOOD GAS PO2 160.9 mmHg (80-100)
[2024-10-16] MEDS ORDERED: LORazepam 2 MG/ML SDV VIAL ONE (10:40)
[2024-10-16] MEDS: NAPH,MB-DB/K PH,MBDB POWDER PACKET PO ONE (11:08)
[2024-10-16] MEDS: LORazepam 2 MG/ML SDV VIAL IVPUSH ONE (11:08)
[2024-10-16] MEDS: levETIRAcetam 500 MG/5 ML INJECTION VIAL IVPB SCH (11:08)
[2024-10-16] MEDS: LORazepam 2 MG/ML SDV VIAL IVPUSH PRN (12:00)
[2024-10-16] MEDS: SODIUM CHLORIDE 500 ML IV STA (12:30)
[2024-10-16] MEDS: NOREPINEPHRINE 0.9 % NACL 8 MG/250 ML BAG IVPB SCH (15:55)
[2024-10-16] MEDS: MEROPENEM-0.9% SODIUM CHLORIDE 1 GM/50 ML BAG IVPB SCH (15:56)
[2024-10-16] MEDS: MAGNESIUM 1GM/D5W - 1 GM/100 ML IVPB IVPB ONE (17:32)
[2024-10-16] MEDS: levETIRAcetam 500 MG/5 ML INJECTION VIAL IVPB ONE (19:03)
[2024-10-17 07:39] LABS: HEMATOCRIT 24.5 % (32.4-45.2); HEMOGLOBIN 7.5 GM/dL (10.7-15.3); MCH 24.2 pg (25.7-33.7); MCHC 30.8 g/dl (32.0-36.0); MEAN CELL VOLUME 78.6 fl (80-96); MEAN PLT VOLUME 7.7 fl (7.5-11.1); PLATELET COUNT 278 10^3/uL (134-434); RBC 3.11 M/mm3 (3.60-5.2)
[2024-10-17 07:55] LABS: POTASSIUM 4.7 mmol/L (3.5-5.1)
[2024-10-17 07:59] LABS: CALCIUM 7.6 mg/dL (8.5-10.1)
[2024-10-17 08:00] LABS: BLOOD UREA NITROGEN 13.3 mg/dL (7-18); MAGNESIUM 2.1 mg/dL (1.8-2.4)
[2024-10-17 08:03] LABS: CREATININE 0.2 mg/dL (0.55-1.3); PHOSPHOROUS 1.9 mg/dL (2.5-4.9)
[2024-10-17] MEDS: NAPH,MB-DB/K PH,MBDB POWDER PACKET PO ONE (10:19)
[2024-10-18 07:07] LABS: HEMOGLOBIN 7.2 GM/dL (10.7-15.3); MCH 24.7 pg (25.7-33.7); MCHC 31.4 g/dl (32.0-36.0); MEAN CELL VOLUME 78.7 fl (80-96); MEAN PLT VOLUME 7.5 fl (7.5-11.1); PLATELET COUNT 246 10^3/uL (134-434); RBC 2.92 M/mm3 (3.60-5.2); RDW 18.9 % (11.6-15.6); WHITE BLOOD COUNT 10.7 K/mm3 (4.0-10.0)
[2024-10-18 07:18] LABS: CHLORIDE 112 mmol/L (98-107); POTASSIUM 3.8 mmol/L (3.5-5.1); SODIUM 145 mmol/L (136-145)
[2024-10-18 07:22] LABS: BLOOD UREA NITROGEN 13.7 mg/dL (7-18); CALCIUM 7.5 mg/dL (8.5-10.1)
[2024-10-18 07:23] LABS: ANION GAP 2 mmol/L (4-13); CO2 31 mmol/L (21-32); GLUCOSE,RANDOM 189 mg/dL (74-106); MAGNESIUM 1.9 mg/dL (1.8-2.4)
[2024-10-18 07:26] LABS: CREATININE < 0.2 mg/dL (0.55-1.3)
[2024-10-18] MEDS: METOCLOPRAMIDE HCL INJECTION 10 MG/2 ML VIAL IVPUSH SCH (17:12)
[2024-10-19] MEDS: CALCIUM GLUCONATE 10% - 1,000 MG/10 ML VIAL IVPB ONE (00:13)
[2024-10-19] MEDS: ALBUMIN HUMAN 5% 250 ML IV SOLUTION IV ONE (00:42)
[2024-10-19] MEDS: FUROSEMIDE 40 MG/4 ML INJECTABLE VIAL IVPUSH ONE (00:45)
[2024-10-19 06:42] LABS: BASO % 0.2 % (0-2.0); EOS % 0.5 % (0-4.5); HEMATOCRIT 23.2 % (32.4-45.2); LYMPH % 10.5 % (8-40); MCH 23.9 pg (25.7-33.7); MEAN CELL VOLUME 79.6 fl (80-96); MONO % 5.3 % (3.8-10.2); NEUT % 83.5 % (42.8-82.8); PLATELET COUNT 218 10^3/uL (134-434); RBC 2.91 M/mm3 (3.60-5.2); RDW 19.9 % (11.6-15.6); WHITE BLOOD COUNT 8.1 K/mm3 (4.0-10.0)
[2024-10-19 07:15] LABS: CHLORIDE 109 mmol/L (98-107); POTASSIUM 3.3 mmol/L (3.5-5.1); SODIUM 144 mmol/L (136-145)
[2024-10-19 07:25] LABS: ALBUMIN 1.7 g/dl (3.4-5.0); ANION GAP 2 mmol/L (4-13); CALCIUM 7.8 mg/dL (8.5-10.1); CO2 33 mmol/L (21-32)
[2024-10-19 07:26] LABS: BLOOD UREA NITROGEN 15.6 mg/dL (7-18); GLUCOSE,RANDOM 207 mg/dL (74-106); MAGNESIUM 1.8 mg/dL (1.8-2.4)
[2024-10-19 07:28] LABS: SGPT/ALT 8 U/L (13-61)
[2024-10-19 07:29] LABS: CREATININE 0.2 mg/dL (0.55-1.3); PHOSPHOROUS 1.9 mg/dL (2.5-4.9); SGOT/AST < 3 U/L (15-37)
[2024-10-19 07:30] LABS: BILIRUBIN,TOTAL 0.2 mg/dL (0.2-1); TOT PROT 5.5 g/dl (6.4-8.2)
[2024-10-19 07:31] LABS: ALK PHOS 99 U/L (45-117)
[2024-10-19] MEDS: MAGNESIUM 2GM/50ML STERILE WATER IVPB IVPB ONE (09:12)
[2024-10-19] MEDS: POTASSIUM CHLORIDE ORAL LIQUID 20 MEQ/15 ML PEG ONE (09:15)
[2024-10-19] MEDS: NAPH,MB-DB/K PH,MBDB POWDER PACKET PEG ONE (09:18)
[2024-10-19] MEDS: NAPH,MB-DB/K PH,MBDB POWDER PACKET GT ONE (14:01)
[2024-10-19 21:34] LABS: BASO % 0.3 % (0-2.0); EOS % 0.6 % (0-4.5); HEMATOCRIT 28.6 % (32.4-45.2); HEMOGLOBIN 8.8 GM/dL (10.7-15.3); LYMPH % 14.8 % (8-40); MCH 24.4 pg (25.7-33.7); MCHC 30.7 g/dl (32.0-36.0); MEAN CELL VOLUME 79.7 fl (80-96); MEAN PLT VOLUME 7.7 fl (7.5-11.1); NEUT % 79.3 % (42.8-82.8); PLATELET COUNT 231 10^3/uL (134-434); RBC 3.59 M/mm3 (3.60-5.2); RDW 18.8 % (11.6-15.6); WHITE BLOOD COUNT 8.3 K/mm3 (4.0-10.0)
[2024-10-19 21:50] LABS: POTASSIUM 4.2 mmol/L (3.5-5.1)
[2024-10-19 21:52] LABS: ALBUMIN 1.6 g/dl (3.4-5.0); BLOOD UREA NITROGEN 14.4 mg/dL (7-18); CALCIUM 7.8 mg/dL (8.5-10.1)
[2024-10-19 21:55] LABS: CREATININE 0.2 mg/dL (0.55-1.3)
[2024-10-19 21:57] LABS: BILIRUBIN,TOTAL 0.2 mg/dL (0.2-1); TOT PROT 5.5 g/dl (6.4-8.2)
[2024-10-19] MEDS: INSULIN (LEVEMIR) 100 UNITS/ML UNITS SQ SCH (22:20)
[2024-10-20 06:53] LABS: BASO % 0.3 % (0-2.0); EOS % 0.8 % (0-4.5); HEMATOCRIT 28.2 % (32.4-45.2); HEMOGLOBIN 8.9 GM/dL (10.7-15.3); LYMPH % 15.6 % (8-40); MCH 24.9 pg (25.7-33.7); MCHC 31.3 g/dl (32.0-36.0); MEAN CELL VOLUME 79.4 fl (80-96); MONO % 5.9 % (3.8-10.2); NEUT % 77.4 % (42.8-82.8); PLATELET COUNT 242 10^3/uL (134-434); RBC 3.56 M/mm3 (3.60-5.2); RDW 18.8 % (11.6-15.6); WHITE BLOOD COUNT 8.8 K/mm3 (4.0-10.0)
[2024-10-20 07:03] LABS: POTASSIUM 4.4 mmol/L (3.5-5.1)
[2024-10-20 07:05] LABS: CALCIUM 8.4 mg/dL (8.5-10.1)
[2024-10-20 07:06] LABS: BLOOD UREA NITROGEN 12.7 mg/dL (7-18)
[2024-10-20 07:09] LABS: CREATININE 0.2 mg/dL (0.55-1.3)
[2024-10-20] MEDS ORDERED: PROPOFOL 20 ML ONE (12:31)
[2024-10-20] MEDS ORDERED: ROCURONIUM BROMIDE 50 MG/5 ML SYRINGE ONE (12:53)
[2024-10-20] MEDS ORDERED: SUGAMMADEX SODIUM 200 MG/2 ML VIAL ONE (13:33)
[2024-10-21 06:32] LABS: BASO % 0.3 % (0-2.0); EOS % 0.1 % (0-4.5); HEMATOCRIT 29.4 % (32.4-45.2); HEMOGLOBIN 9.2 GM/dL (10.7-15.3); LYMPH % 11.6 % (8-40); MCH 24.7 pg (25.7-33.7); MCHC 31.1 g/dl (32.0-36.0); MEAN CELL VOLUME 79.5 fl (80-96); MEAN PLT VOLUME 7.9 fl (7.5-11.1); MONO % 4.1 % (3.8-10.2); NEUT % 83.9 % (42.8-82.8); PLATELET COUNT 322 10^3/uL (134-434); RDW 18.7 % (11.6-15.6); WHITE BLOOD COUNT 12.1 K/mm3 (4.0-10.0)
[2024-10-21] MEDS ORDERED: hydrALAZINE HCL 20 MG/ML VIAL IVPUSH ONE (06:42)
[2024-10-21 06:46] LABS: POTASSIUM 3.7 mmol/L (3.5-5.1)
[2024-10-21 06:48] LABS: ALBUMIN 1.6 g/dl (3.4-5.0); BLOOD UREA NITROGEN 10.6 mg/dL (7-18); MAGNESIUM 1.9 mg/dL (1.8-2.4)
[2024-10-21 06:51] LABS: CREATININE 0.2 mg/dL (0.55-1.3)
[2024-10-21 06:52] LABS: BILIRUBIN,TOTAL 0.3 mg/dL (0.2-1); PHOSPHOROUS 2.1 mg/dL (2.5-4.9); TOT PROT 5.8 g/dl (6.4-8.2)
[2024-10-21] MEDS: ALBUMIN HUMAN 25% 100 ML VIAL IV ONE (14:29)
[2024-10-21] MEDS: FUROSEMIDE 40 MG/4 ML INJECTABLE VIAL IVPUSH ONE (14:30)
[2024-10-21] MEDS: NAPH,MB-DB/K PH,MBDB POWDER PACKET PO ONE (14:30)
[2024-10-21] MEDS ORDERED: INSULIN (LEVEMIR) 100 UNITS/ML UNITS SQ ONE (21:25)
[2024-10-21] MEDS: METOCLOPRAMIDE HCL INJECTION 10 MG/2 ML VIAL IVPUSH PRN (21:46)
[2024-10-22 06:28] LABS: BASO % 0.4 % (0-2.0); EOS % 0.5 % (0-4.5); HEMATOCRIT 25.2 % (32.4-45.2); HEMOGLOBIN 7.9 GM/dL (10.7-15.3); LYMPH % 14.4 % (8-40); MCH 24.8 pg (25.7-33.7); MCHC 31.2 g/dl (32.0-36.0); MEAN CELL VOLUME 79.6 fl (80-96); MEAN PLT VOLUME 7.7 fl (7.5-11.1); MONO % 5.5 % (3.8-10.2); NEUT % 79.2 % (42.8-82.8); PLATELET COUNT 252 10^3/uL (134-434); RBC 3.17 M/mm3 (3.60-5.2); RDW 18.7 % (11.6-15.6); WHITE BLOOD COUNT 7.8 K/mm3 (4.0-10.0)
[2024-10-22 06:40] LABS: CHLORIDE 107 mmol/L (98-107); POTASSIUM 3.3 mmol/L (3.5-5.1); SODIUM 143 mmol/L (136-145)
[2024-10-22 06:44] LABS: CALCIUM 7.7 mg/dL (8.5-10.1)
[2024-10-22 06:45] LABS: ALBUMIN 1.7 g/dl (3.4-5.0); ANION GAP 3 mmol/L (4-13); BLOOD UREA NITROGEN 11.4 mg/dL (7-18); CO2 33 mmol/L (21-32); GLUCOSE,RANDOM 72 mg/dL (74-106); MAGNESIUM 1.6 mg/dL (1.8-2.4)
[2024-10-22 06:48] LABS: PHOSPHOROUS 2.4 mg/dL (2.5-4.9); SGOT/AST 4 U/L (15-37)
[2024-10-22 06:49] LABS: ALK PHOS 92 U/L (45-117); TOT PROT 5.4 g/dl (6.4-8.2)
[2024-10-22 06:50] LABS: BILIRUBIN,TOTAL 0.3 mg/dL (0.2-1)
[2024-10-22 07:43] LABS: SGPT/ALT < 6 U/L (13-61)
[2024-10-22] MEDS: NAPH,MB-DB/K PH,MBDB POWDER PACKET PO ONE (08:50)
[2024-10-22] MEDS: MAGNESIUM SULF 50% (8.12 MEQ/2 ML-1 GM VIAL) IVPB ONE (08:55)
[2024-10-22 09:16] LABS: CREATININE < 0.2 mg/dL (0.55-1.3)
[2024-10-22] MEDS: KCL 10 MEQ IVPB 10 MEQ/100 ML INFUS.BAG IVPB SCH (09:46)
[2024-10-22] MEDS ORDERED: ALBUTEROL SO4 2.5/IPRATROPIUM 0.5 INH SOL 3 ML VIAL.NEB. NEB PRN ×2 (11:05→19:05)
[2024-10-22] MEDS: ALBUMIN HUMAN 25% 100 ML VIAL IV SCH (13:26)
[2024-10-22] MEDS: FUROSEMIDE 40 MG/4 ML INJECTABLE VIAL IVPUSH ONE (14:30)
[2024-10-22] MEDS ORDERED: INSULIN (LEVEMIR) 100 UNITS/ML UNITS SQ ONE (18:30)
[2024-10-22] MEDS ORDERED: INSULIN ASPART SLIDING SCALE (NOVOLOG) 1 VIAL SQ ONE (18:30)
[2024-10-22] MEDS ORDERED: LORazepam 2 MG/ML SDV VIAL IVPUSH PRN (19:05)
[2024-10-22] MEDS ORDERED: ACETAMINOPHEN 1000 MG/100 ML BAG IVPB PRN (19:05)
[2024-10-22] MEDS ORDERED: METOCLOPRAMIDE HCL INJECTION 10 MG/2 ML VIAL IVPUSH PRN (19:05)
[2024-10-22] MEDS ORDERED: hydrALAZINE HCL 20 MG/ML VIAL IVPUSH ONE (19:05)
[2024-10-22] MEDS: INSULIN ASPART SLIDING SCALE (NOVOLOG) 1 VIAL SQ SCH (21:37)
[2024-10-22] MEDS: levETIRAcetam 500 MG/5 ML INJECTION VIAL IVPB SCH (21:38)
[2024-10-22] MEDS: CHLORHEXIDINE GLUCONATE 4% CLEANSER FOR DECOLONIZATION TP SCH (21:38)
[2024-10-22] MEDS: METOPROLOL TARTRATE 25 MG TABLET (FP) PEG SCH (21:38)
[2024-10-23] MEDS: MEROPENEM-0.9% SODIUM CHLORIDE 1 GM/50 ML BAG IVPB SCH (00:11)
[2024-10-23 06:30] LABS: BASO % 0.5 % (0-2.0); EOS % 0.4 % (0-4.5); HEMOGLOBIN 9.4 GM/dL (10.7-15.3); LYMPH % 11.5 % (8-40); MCH 24.8 pg (25.7-33.7); MCHC 31.3 g/dl (32.0-36.0); MEAN CELL VOLUME 79.2 fl (80-96); MEAN PLT VOLUME 7.7 fl (7.5-11.1); MONO % 4.7 % (3.8-10.2); NEUT % 82.9 % (42.8-82.8); PLATELET COUNT 350 10^3/uL (134-434); RBC 3.79 M/mm3 (3.60-5.2); WHITE BLOOD COUNT 9.3 K/mm3 (4.0-10.0)
[2024-10-23 06:52] LABS: POTASSIUM 3.9 mmol/L (3.5-5.1)
[2024-10-23 06:54] LABS: CALCIUM 8.4 mg/dL (8.5-10.1)
[2024-10-23 06:55] LABS: BLOOD UREA NITROGEN 12.2 mg/dL (7-18); MAGNESIUM 2.1 mg/dL (1.8-2.4)
[2024-10-23 06:58] LABS: CREATININE 0.2 mg/dL (0.55-1.3); PHOSPHOROUS 1.9 mg/dL (2.5-4.9)
[2024-10-23 06:59] LABS: BILIRUBIN,TOTAL 0.4 mg/dL (0.2-1); TOT PROT 6.4 g/dl (6.4-8.2)
[2024-10-23 07:11] LABS: ALBUMIN 2.2 g/dl (3.4-5.0)
[2024-10-23] MEDS: PANTOPRAZOLE SODIUM 40 MG VIAL IVPUSH SCH (09:14)
[2024-10-23] MEDS: AMINO ACIDS/PROTEIN HYDROLYS 30 ML LIQUID.PKT PEG SCH (09:15)
[2024-10-23] MEDS: MULTIVITAMINS THER W-MINERALS COMBO TABLET (FP) PO SCH (09:15)
[2024-10-23] MEDS: COLLAGENASE CLOSTRIDIUM HIST. 30 GRAMS TUBE TP SCH (09:16)
[2024-10-23] MEDS ORDERED: INSULIN ASPART SLIDING SCALE (NOVOLOG) 1 VIAL SQ ONE ×2 (09:34→16:18)
[2024-10-23] MEDS: SODIUM PHOSPHATE - 20 MM in DEXTROSE 5%-WATER - 250 ML IVPB ONE (13:16)
[2024-10-23] MEDS: ENOXAPARIN NA (PORCINE) 60 MG/0.6 ML DISP.SYRIN SQ SCH (16:20)
[2024-10-23] MEDS: ERTAPENEM SODIUM 1 GM in SODIUM CHLORIDE 50 ML IVPB SCH (22:40)
[2024-10-23] MEDS: VANCOMYCIN/WATER FOR INJ (PEG) 750 MG/150 ML BAG IVPB SCH (22:40)
[2024-10-24] MEDS: METOPROLOL TARTRATE 5 MG/5 ML VIAL IVPUSH ONE ×2 (04:28→17:26)
[2024-10-24 07:04] LABS: HEMATOCRIT 28.2 % (32.4-45.2); HEMOGLOBIN 8.8 GM/dL (10.7-15.3); MCH 24.7 pg (25.7-33.7); MCHC 31.3 g/dl (32.0-36.0); MEAN CELL VOLUME 78.7 fl (80-96); MEAN PLT VOLUME 7.4 fl (7.5-11.1); PLATELET COUNT 353 10^3/uL (134-434); RBC 3.58 M/mm3 (3.60-5.2); RDW 18.6 % (11.6-15.6); WHITE BLOOD COUNT 8.2 K/mm3 (4.0-10.0)
[2024-10-24 07:20] LABS: CHLORIDE 107 mmol/L (98-107); SODIUM 145 mmol/L (136-145)
[2024-10-24 07:21] LABS: CALCIUM 8.2 mg/dL (8.5-10.1)
[2024-10-24 07:22] LABS: BLOOD UREA NITROGEN 14.3 mg/dL (7-18); CO2 33 mmol/L (21-32); GLUCOSE,RANDOM 171 mg/dL (74-106)
[2024-10-24 07:25] LABS: CREATININE < 0.2 mg/dL (0.55-1.3)
[2024-10-24 07:32] LABS: ANION GAP 5 mmol/L (4-13); POTASSIUM 2.8 mmol/L (3.5-5.1)
[2024-10-24] MEDS: POTASSIUM CHLORIDE ORAL LIQUID 20 MEQ/15 ML GT ONE (08:16)
[2024-10-24] MEDS: KCL 10 MEQ IVPB 10 MEQ/100 ML INFUS.BAG IVPB SCH (08:16)
[2024-10-24] MEDS: CARVEDILOL 12.5 MG TABLET (FP) PO SCH (09:30)
[2024-10-24] MEDS ORDERED: INSULIN ASPART SLIDING SCALE (NOVOLOG) 1 VIAL SQ ONE (16:05)
[2024-10-24] MEDS: LEVALBUTEROL HCL 0.63 MG/3 ML VIAL.NEB. IH SCH (20:15)
[2024-10-24] MEDS: IPRATROPIUM BR 0.02% 0.5 MG/2.5 ML VIAL.NEB. NEB SCH (20:15)
[2024-10-24] MEDS: CARVEDILOL 25 MG TABLET (FP) PO SCH (21:24)
[2024-10-24] MEDS: LATANOPROST 0.005% OPHTH SOLN 2.5ML BOTTLE OU SCH (21:24)
[2024-10-25 12:16] LABS: BASO % 0.4 % (0-2.0); EOS % 0.2 % (0-4.5); HEMATOCRIT 25.6 % (32.4-45.2); HEMOGLOBIN 7.8 GM/dL (10.7-15.3); LYMPH % 15.6 % (8-40); MCH 24.4 pg (25.7-33.7); MCHC 30.6 g/dl (32.0-36.0); MEAN CELL VOLUME 79.8 fl (80-96); MEAN PLT VOLUME 7.8 fl (7.5-11.1); MONO % 4.6 % (3.8-10.2); NEUT % 79.2 % (42.8-82.8); PLATELET COUNT 293 10^3/uL (134-434); RBC 3.21 M/mm3 (3.60-5.2); WHITE BLOOD COUNT 7.7 K/mm3 (4.0-10.0)
[2024-10-25] MEDS ORDERED: INSULIN ASPART SLIDING SCALE (NOVOLOG) 1 VIAL SQ ONE (16:01)
[2024-10-25 19:05] LABS: BLOOD UREA NITROGEN 27.7 mg/dL (7-18); CALCIUM 8.2 mg/dL (8.5-10.1); CREATININE 0.4 mg/dL (0.55-1.3); MAGNESIUM 1.9 mg/dL (1.8-2.4); PHOSPHOROUS 2.2 mg/dL (2.5-4.9); POTASSIUM 3.8 mmol/L (3.5-5.1); TOT PROT 5.5 g/dl (6.4-8.2)
[2024-10-25 19:06] LABS: ALBUMIN 1.9 g/dl (3.4-5.0); BILIRUBIN,TOTAL 0.2 mg/dL (0.2-1)
[2024-10-26 07:15] LABS: BASO % 0.4 % (0-2.0); EOS % 0.3 % (0-4.5); HEMOGLOBIN 7.8 GM/dL (10.7-15.3); LYMPH % 19.8 % (8-40); MCH 24.7 pg (25.7-33.7); MCHC 31.2 g/dl (32.0-36.0); MEAN CELL VOLUME 79.2 fl (80-96); MEAN PLT VOLUME 7.5 fl (7.5-11.1); MONO % 5.9 % (3.8-10.2); NEUT % 73.6 % (42.8-82.8); PLATELET COUNT 287 10^3/uL (134-434); RBC 3.16 M/mm3 (3.60-5.2); WHITE BLOOD COUNT 6.5 K/mm3 (4.0-10.0)
[2024-10-26 07:34] LABS: CHLORIDE 111 mmol/L (98-107); POTASSIUM 3.6 mmol/L (3.5-5.1); SODIUM 146 mmol/L (136-145)
[2024-10-26 07:41] LABS: ALBUMIN 1.8 g/dl (3.4-5.0); ANION GAP 4 mmol/L (4-13); BLOOD UREA NITROGEN 24.3 mg/dL (7-18); CALCIUM 8.1 mg/dL (8.5-10.1); CO2 31 mmol/L (21-32); GLUCOSE,RANDOM 240 mg/dL (74-106)
[2024-10-26 07:42] LABS: MAGNESIUM 2.1 mg/dL (1.8-2.4)
[2024-10-26 07:44] LABS: CREATININE 0.2 mg/dL (0.55-1.3); SGPT/ALT 6 U/L (13-61)
[2024-10-26 07:46] LABS: BILIRUBIN,TOTAL 0.4 mg/dL (0.2-1); TOT PROT 5.7 g/dl (6.4-8.2)
[2024-10-26 07:47] LABS: ALK PHOS 96 U/L (45-117)
[2024-10-26 07:50] LABS: SGOT/AST < 3 U/L (15-37)
[2024-10-27 06:36] LABS: BASO % 0.3 % (0-2.0); EOS % 0.3 % (0-4.5); HEMATOCRIT 24.4 % (32.4-45.2); HEMOGLOBIN 7.6 GM/dL (10.7-15.3); LYMPH % 14.3 % (8-40); MCH 24.9 pg (25.7-33.7); MCHC 30.9 g/dl (32.0-36.0); MEAN CELL VOLUME 80.4 fl (80-96); MEAN PLT VOLUME 7.9 fl (7.5-11.1); MONO % 4.4 % (3.8-10.2); NEUT % 80.7 % (42.8-82.8); PLATELET COUNT 233 10^3/uL (134-434); RBC 3.04 M/mm3 (3.60-5.2); RDW 19.6 % (11.6-15.6); WHITE BLOOD COUNT 7.5 K/mm3 (4.0-10.0)
[2024-10-27 07:04] LABS: POTASSIUM 3.5 mmol/L (3.5-5.1)
[2024-10-27 07:10] LABS: ALBUMIN 1.8 g/dl (3.4-5.0); BLOOD UREA NITROGEN 23.3 mg/dL (7-18); CALCIUM 7.8 mg/dL (8.5-10.1); MAGNESIUM 1.8 mg/dL (1.8-2.4)
[2024-10-27 07:13] LABS: PHOSPHOROUS 2.8 mg/dL (2.5-4.9)
[2024-10-27 07:14] LABS: CREATININE 0.2 mg/dL (0.55-1.3)
[2024-10-27 07:15] LABS: BILIRUBIN,TOTAL 0.4 mg/dL (0.2-1); TOT PROT 5.6 g/dl (6.4-8.2)
[2024-10-27] MEDS: ACETAMINOPHEN 1000 MG/100 ML BAG IVPB PRN (18:09)
[2024-10-27] MEDS: APIXABAN 5 MG TABLET PO SCH (22:17)
[2024-10-28 07:02] LABS: BASO % 0.4 % (0-2.0); EOS % 0.4 % (0-4.5); HEMOGLOBIN 8.2 GM/dL (10.7-15.3); LYMPH % 13.6 % (8-40); MCH 24.6 pg (25.7-33.7); MCHC 30.4 g/dl (32.0-36.0); MEAN CELL VOLUME 81.1 fl (80-96); MEAN PLT VOLUME 8.1 fl (7.5-11.1); MONO % 4.7 % (3.8-10.2); NEUT % 80.9 % (42.8-82.8); PLATELET COUNT 269 10^3/uL (134-434); RBC 3.33 M/mm3 (3.60-5.2); RDW 19.8 % (11.6-15.6); WHITE BLOOD COUNT 9.2 K/mm3 (4.0-10.0)
[2024-10-28 07:25] LABS: POTASSIUM 3.4 mmol/L (3.5-5.1)
[2024-10-28 07:36] LABS: CALCIUM 8.3 mg/dL (8.5-10.1)
[2024-10-28 07:37] LABS: ALBUMIN 1.8 g/dl (3.4-5.0); BLOOD UREA NITROGEN 19.6 mg/dL (7-18)
[2024-10-28 07:40] LABS: CREATININE 0.2 mg/dL (0.55-1.3); PHOSPHOROUS 2.7 mg/dL (2.5-4.9)
[2024-10-28 07:42] LABS: BILIRUBIN,TOTAL 0.3 mg/dL (0.2-1); TOT PROT 6.2 g/dl (6.4-8.2)
[2024-10-28] MEDS: POTASSIUM CHLORIDE ORAL LIQUID 20 MEQ/15 ML NGT ONE (12:55)
[2024-10-29 06:54] LABS: BASO % 0.4 % (0-2.0); HEMATOCRIT 24.6 % (32.4-45.2); HEMOGLOBIN 7.5 GM/dL (10.7-15.3); LYMPH % 15.1 % (8-40); MCH 24.8 pg (25.7-33.7); MCHC 30.6 g/dl (32.0-36.0); MEAN PLT VOLUME 8.4 fl (7.5-11.1); MONO % 4.5 % (3.8-10.2); PLATELET COUNT 206 10^3/uL (134-434); RBC 3.04 M/mm3 (3.60-5.2); RDW 19.4 % (11.6-15.6); WHITE BLOOD COUNT 7.5 K/mm3 (4.0-10.0)
[2024-10-29 07:11] LABS: POTASSIUM 3.8 mmol/L (3.5-5.1)
[2024-10-29 07:16] LABS: ALBUMIN 1.6 g/dl (3.4-5.0); BLOOD UREA NITROGEN 20.3 mg/dL (7-18)
[2024-10-29 07:19] LABS: CREATININE 0.2 mg/dL (0.55-1.3)
[2024-10-29 07:20] LABS: PHOSPHOROUS 2.6 mg/dL (2.5-4.9)
[2024-10-29 07:21] LABS: BILIRUBIN,TOTAL 0.1 mg/dL (0.2-1); TOT PROT 5.6 g/dl (6.4-8.2)
[2024-10-30 07:21] LABS: POTASSIUM 3.5 mmol/L (3.5-5.1)
[2024-10-30 07:26] LABS: ALBUMIN 1.6 g/dl (3.4-5.0); BLOOD UREA NITROGEN 15.5 mg/dL (7-18)
[2024-10-30 07:29] LABS: CREATININE 0.2 mg/dL (0.55-1.3)
[2024-10-30 07:30] LABS: PHOSPHOROUS 2.4 mg/dL (2.5-4.9)
[2024-10-30 07:31] LABS: BILIRUBIN,TOTAL 0.2 mg/dL (0.2-1); TOT PROT 5.4 g/dl (6.4-8.2)
[2024-10-30 07:39] LABS: BASO % 0.5 % (0-2.0); EOS % 1.2 % (0-4.5); HEMATOCRIT 25.1 % (32.4-45.2); HEMOGLOBIN 7.6 GM/dL (10.7-15.3); LYMPH % 15.5 % (8-40); MCH 24.6 pg (25.7-33.7); MCHC 30.3 g/dl (32.0-36.0); MEAN PLT VOLUME 8.4 fl (7.5-11.1); NEUT % 76.8 % (42.8-82.8); PLATELET COUNT 219 10^3/uL (134-434); RDW 19.1 % (11.6-15.6); WHITE BLOOD COUNT 6.4 K/mm3 (4.0-10.0)
[2024-10-30 13:22] VITALS: BMI 22.1
[2024-10-30 17:04] LABS: EPI CELLS 4 /uL (0-25.1); HYALINE CASTS 2 /uL (0-3.1); URINE APPEARANCE CLOUDY; URINE BACTERIA 42 /uL (0-1359); URINE BILIRUBIN NEGATIVE (NEGATIVE); URINE COLOR YELLOW; URINE GLUCOSE (UA) NEGATIVE (NEGATIVE); URINE KETONE NEGATIVE (NEGATIVE); URINE LEUK ESTERASE 2+ (NEGATIVE); URINE NITRITE NEGATIVE (NEGATIVE); URINE PROTEIN 1+ (NEGATIVE); URINE RBC 194 /uL (0-23.9); URINE UROBILINOGEN 0.2 mg/dL (0.2-1.0); URINE WBC 3005 /uL (0-25.8)
[2024-10-30 17:48] LABS: YEAST FEW YEAST (NEGATIVE)
[2024-10-31 06:37] LABS: BASO % 0.6 % (0-2.0); EOS % 0.6 % (0-4.5); HEMATOCRIT 24.4 % (32.4-45.2); HEMOGLOBIN 7.4 GM/dL (10.7-15.3); LYMPH % 20.6 % (8-40); MCH 24.7 pg (25.7-33.7); MCHC 30.5 g/dl (32.0-36.0); MEAN CELL VOLUME 80.9 fl (80-96); MEAN PLT VOLUME 8.6 fl (7.5-11.1); MONO % 6.5 % (3.8-10.2); NEUT % 71.7 % (42.8-82.8); PLATELET COUNT 229 10^3/uL (134-434); RBC 3.02 M/mm3 (3.60-5.2); RDW 19.2 % (11.6-15.6); WHITE BLOOD COUNT 6.2 K/mm3 (4.0-10.0)
[2024-10-31 06:50] LABS: CHLORIDE 111 mmol/L (98-107); POTASSIUM 3.6 mmol/L (3.5-5.1); SODIUM 145 mmol/L (136-145)
[2024-10-31 06:56] LABS: CALCIUM 7.6 mg/dL (8.5-10.1)
[2024-10-31 06:57] LABS: ALBUMIN 1.5 g/dl (3.4-5.0); ANION GAP 5 mmol/L (4-13); BLOOD UREA NITROGEN 14.2 mg/dL (7-18); CO2 29 mmol/L (21-32); GLUCOSE,RANDOM 186 mg/dL (74-106)
[2024-10-31 07:00] LABS: CREATININE < 0.2 mg/dL (0.55-1.3); SGOT/AST 9 U/L (15-37); SGPT/ALT 18 U/L (13-61)
[2024-10-31 07:02] LABS: BILIRUBIN,TOTAL 0.2 mg/dL (0.2-1); TOT PROT 5.4 g/dl (6.4-8.2)
[2024-10-31 07:03] LABS: ALK PHOS 97 U/L (45-117)
[2024-10-31] MEDS: LISINOPRIL 5 MG TABLET PO SCH (14:47)
[2024-11-01 08:17] LABS: BASO % 0.5 % (0-2.0); EOS % 0.9 % (0-4.5); HEMATOCRIT 24.7 % (32.4-45.2); HEMOGLOBIN 7.8 GM/dL (10.7-15.3); LYMPH % 17.6 % (8-40); MCH 25.1 pg (25.7-33.7); MCHC 31.4 g/dl (32.0-36.0); MEAN CELL VOLUME 80.1 fl (80-96); MEAN PLT VOLUME 8.5 fl (7.5-11.1); MONO % 6.6 % (3.8-10.2); NEUT % 74.4 % (42.8-82.8); PLATELET COUNT 254 10^3/uL (134-434); RBC 3.09 M/mm3 (3.60-5.2); RDW 19.1 % (11.6-15.6); WHITE BLOOD COUNT 7.2 K/mm3 (4.0-10.0)
[2024-11-01 14:45] LABS: ALBUMIN 1.5 g/dl (3.4-5.0); ALK PHOS 98 U/L (45-117); ANION GAP 4 mmol/L (4-13); BILIRUBIN,TOTAL 0.2 mg/dL (0.2-1); BLOOD UREA NITROGEN 12.9 mg/dL (7-18); CALCIUM 7.8 mg/dL (8.5-10.1); CHLORIDE 111 mmol/L (98-107); CO2 29 mmol/L (21-32); CREATININE < 0.2 mg/dL (0.55-1.3); GLUCOSE,RANDOM 121 mg/dL (74-106); POTASSIUM 3.9 mmol/L (3.5-5.1); SGOT/AST 13 U/L (15-37); SGPT/ALT 17 U/L (13-61); SODIUM 144 mmol/L (136-145); TOT PROT 5.5 g/dl (6.4-8.2)
[2024-11-02 07:23] LABS: BASO % 0.4 % (0-2.0); HEMATOCRIT 24.3 % (32.4-45.2); HEMOGLOBIN 7.7 GM/dL (10.7-15.3); LYMPH % 17.1 % (8-40); MCH 25.3 pg (25.7-33.7); MCHC 31.5 g/dl (32.0-36.0); MEAN CELL VOLUME 80.1 fl (80-96); MEAN PLT VOLUME 8.5 fl (7.5-11.1); NEUT % 73.5 % (42.8-82.8); PLATELET COUNT 264 10^3/uL (134-434); RBC 3.03 M/mm3 (3.60-5.2); RDW 19.1 % (11.6-15.6); WHITE BLOOD COUNT 7.3 K/mm3 (4.0-10.0)
[2024-11-02 07:38] LABS: POTASSIUM 3.6 mmol/L (3.5-5.1)
[2024-11-02 07:40] LABS: ALBUMIN 1.5 g/dl (3.4-5.0); CALCIUM 7.8 mg/dL (8.5-10.1); MAGNESIUM 1.9 mg/dL (1.8-2.4)
[2024-11-02 07:44] LABS: CREATININE 0.2 mg/dL (0.55-1.3); PHOSPHOROUS 2.6 mg/dL (2.5-4.9)
[2024-11-02 07:45] LABS: BILIRUBIN,TOTAL 0.2 mg/dL (0.2-1)
[2024-11-02 07:46] LABS: TOT PROT 5.7 g/dl (6.4-8.2)
[2024-11-02 09:22] VITALS: TEMP 96.5
[2024-11-02 13:03] VITALS: BP 131/68; PULSE 102
[2024-11-02 13:41] VITALS: RESP 21
== END 2024-11-02 19:37 | DRG 4 ==
LOC: JER 07:50 → JERBED 16:29 → J6S 19:22 → JICU 10-06 18:23 → J8W 10-08 14:08 → JICU 10-09 16:42 → J2W 10-22 13:59
PROVIDERS: ADMIT Internal Medicine; ATTEND Internal Medicine
PROC: 0JB70ZZ Excision of Back Subcutaneous Tissue and Fascia, Open Approach (ICD-10-PCS; 2024-10-04)
PROC: 009U0ZZ Drainage of Spinal Canal, Open Approach (ICD-10-PCS; 2024-10-04)
PROC: 5A1935Z Respiratory Ventilation, Less than 24 Consecutive Hours (ICD-10-PCS; 2024-10-06)
PROC: 0BH17EZ Insertion of Endotracheal Airway into Trachea, Via Natural or Artificial Opening (ICD-10-PCS; 2024-10-06)
PROC: 0DQ90ZZ Repair Duodenum, Open Approach (ICD-10-PCS; 2024-10-09)
PROC: 0D160ZA Bypass Stomach to Jejunum, Open Approach (ICD-10-PCS; 2024-10-09)
PROC: 0WQF0ZZ Repair Abdominal Wall, Open Approach (ICD-10-PCS; 2024-10-09)
PROC: 0DH63UZ Insertion of Feeding Device into Stomach, Percutaneous Approach (ICD-10-PCS; 2024-10-09)
PROC: 0D9900Z Drainage of Duodenum with Drainage Device, Open Approach (ICD-10-PCS; 2024-10-09)
PROC: 06H033Z Insertion of Infusion Device into Inferior Vena Cava, Percutaneous Approach (ICD-10-PCS; 2024-10-09)
PROC: B549ZZA Ultrasonography of Inferior Vena Cava, Guidance (ICD-10-PCS; 2024-10-09)
PROC: 5A1955Z Respiratory Ventilation, Greater than 96 Consecutive Hours (ICD-10-PCS; 2024-10-11)
PROC: 0BH17EZ Insertion of Endotracheal Airway into Trachea, Via Natural or Artificial Opening (ICD-10-PCS; 2024-10-11)
PROC: 0B110Z4 Bypass Trachea to Cutaneous, Open Approach (ICD-10-PCS; principal; 2024-10-20 17:30)
DX: E11.69 Type 2 diabetes mellitus with other specified complication (principal); G06.1 Intraspinal abscess and granuloma; K26.5 Chronic or unspecified duodenal ulcer with perforation; J69.0 Pneumonitis due to inhalation of food and vomit; R53.2 Functional quadriplegia; L89.154 Pressure ulcer of sacral region, stage 4; K63.0 Abscess of intestine; J18.9 Pneumonia, unspecified organism; M46.28 Osteomyelitis of vertebra, sacral and sacrococcygeal region; E83.42 Hypomagnesemia; K66.8 Other specified disorders of peritoneum; L02.211 Cutaneous abscess of abdominal wall; I48.91 Unspecified atrial fibrillation; L89.620 Pressure ulcer of left heel, unstageable; R56.9 Unspecified convulsions; I46.9 Cardiac arrest, cause unspecified; E83.39 Other disorders of phosphorus metabolism; E87.0 Hyperosmolality and hypernatremia; E88.09 Other disorders of plasma-protein metabolism, not elsewhere classified; F03.90 Unspecified dementia, unspecified severity, without behavioral disturbance, psychotic disturbance, mood disturbance, and anxiety; K42.9 Umbilical hernia without obstruction or gangrene; D75.839 Thrombocytosis, unspecified; J96.01 Acute respiratory failure with hypoxia; Z79.4 Long term (current) use of insulin; E11.649 Type 2 diabetes mellitus with hypoglycemia without coma; E87.6 Hypokalemia; D63.8 Anemia in other chronic diseases classified elsewhere; R19.7 Diarrhea, unspecified
CPT/HCPCS: 0241U-QW; 31500; 36415; 36430; 36600; 70450-TC; 71045-TC-FY; 72132-TC; 72170-TC-FY; 74018-TC-FY; 74177-TC; 76705-TC; 80048; 80053; 81003; 82272; 82570; 82728; 82803; 82962; 83540; 83550; 83605; 83735; 83880; 84100; 84132; 84156; 84484; 85025; 85027; 85045; 85610; 85651; 85730; 86038; 86140; 86850; 86900; 86901; 86922; 87040; 87070; 87076; 87077; 87086; 87186; 87205; 87324; 87449; 87481; 88302-TC; 88304-TC; 93005; 93010; 93306-TC; 93970-TC; 94002; 94640; 94760; 97162-GP; 99285-25; G0480; J0131; J1644; J1756; P9058; Q9967

== ENCOUNTER 2024-11-09 16:34 | Inpatient (IN) | payer OTHER ==
[2024-11-09 18:25] LABS: VENOUS BASE EXCESS 2.3 mmol/L (-2-2); VENOUS O2 SATURATION 97.8 % (70-80); VENOUS PCO2 35.8 mmHg (38-52); VENOUS PH 7.474 (7.310-7.410)
[2024-11-09 18:27] LABS: BASO % 0.1 % (0-2.0); EOS % 0.5 % (0-4.5); HEMATOCRIT 28.5 % (32.4-45.2); HEMOGLOBIN 8.8 GM/dL (10.7-15.3); LYMPH % 7.9 % (8-40); MCH 24.6 pg (25.7-33.7); MEAN CELL VOLUME 79.6 fl (80-96); MEAN PLT VOLUME 7.6 fl (7.5-11.1); MONO % 5.9 % (3.8-10.2); NEUT % 85.6 % (42.8-82.8); PLATELET COUNT 499 10^3/uL (134-434); RBC 3.58 M/mm3 (3.60-5.2); RDW 19.1 % (11.6-15.6); WHITE BLOOD COUNT 10.6 K/mm3 (4.0-10.0)
[2024-11-09 18:28] LABS: INR 1.47 (0.83-1.09); PROTHROMBIN TIME (PATIENT) 16.7 SEC (9.7-13.0)
[2024-11-09 18:31] LABS: ACTIVATED PTT 30.7 SECONDS (25.2-36.5)
[2024-11-09] MEDS ORDERED: ACETAMINOPHEN INJECTION 100 ML ONE (19:14)
[2024-11-09] MEDS: ACETAMINOPHEN 1000 MG/100 ML BAG IVPB ONE (19:20)
[2024-11-09] MEDS: SODIUM CHLORIDE 0.9% 500 ML INFUS.BAG IV ONE (19:20)
[2024-11-09] MEDS ORDERED: PIPERACILLIN/TAZOB 4.5 GM 4.5 GM/100 ML BAG IVPB ONE (19:28)
[2024-11-09] MEDS: PIPERACILLIN/TAZOB 4.5 GM 4.5 GM in DEXTROSE 5%-WATER 100 ML IVPB ONE (19:34)
[2024-11-09 19:38] LABS: CHLORIDE 108 mmol/L (98-107); POTASSIUM 3.7 mmol/L (3.5-5.1); SODIUM 142 mmol/L (136-145)
[2024-11-09 19:41] LABS: ALBUMIN 1.4 g/dl (3.4-5.0); ANION GAP 8 mmol/L (4-13); CALCIUM 8.6 mg/dL (8.5-10.1); CO2 26 mmol/L (21-32); GLUCOSE,RANDOM 209 mg/dL (74-106)
[2024-11-09 19:42] LABS: HIV INTERPRETATION NEGATIVE (NEGATIVE)
[2024-11-09 19:44] LABS: CREATININE < 0.2 mg/dL (0.55-1.3)
[2024-11-09 19:46] LABS: TOT PROT 5.4 g/dl (6.4-8.2)
[2024-11-09 19:47] LABS: ALK PHOS 90 U/L (45-117)
[2024-11-09 19:51] LABS: SGPT/ALT 15 U/L (13-61)
[2024-11-09 20:01] LABS: BLOOD UREA NITROGEN 19.5 mg/dL (7-18)
[2024-11-09 20:13] LABS: BILIRUBIN,TOTAL 0.2 mg/dL (0.2-1)
[2024-11-09 20:17] LABS: SGOT/AST 19 U/L (15-37)
[2024-11-09] MEDS ORDERED: VANCOMYCIN 1 GM PREMIX (F) 1 GM/200 ML BAG ONE (20:46)
[2024-11-09] MEDS: VANCOMYCIN 1,000 MG in DEXTROSE 5%-WATER - 250 ML IVPB ONE (21:12)
[2024-11-09 21:21] LABS: ARTERIAL BLD GAS O2 SATURATION 90.7 % (95-98); ARTERIAL BLOOD GAS BASE EXCESS 2.7 mmol/L (-2-2); ARTERIAL BLOOD GAS PO2 55.2 mmHg (80-100); ARTERIAL BLOOD GAS pH 7.471 (7.350-7.450)
[2024-11-09 21:23] LABS: ALLENS TEST POSITIVE; VENT MODE A/C; VENT RATE 18
[2024-11-09 22:18] LABS: URINE APPEARANCE CLEAR; URINE BILIRUBIN NEGATIVE (NEGATIVE); URINE COLOR YELLOW; URINE GLUCOSE (UA) NEGATIVE (NEGATIVE); URINE KETONE NEGATIVE (NEGATIVE)
[2024-11-09 22:19] LABS: URINE PROTEIN 2+ (NEGATIVE); URINE UROBILINOGEN 0.2 mg/dL (0.2-1.0)
[2024-11-09 22:20] LABS: EPI CELLS 2.1 /uL (0-25.1); HYALINE CASTS 0.54 /uL (0-3.1); URINE BACTERIA 25.5 /uL (0-1359); URINE LEUK ESTERASE 2+ (NEGATIVE); URINE NITRITE NEGATIVE (NEGATIVE); URINE RBC 179.2 /uL (0-23.9); URINE WBC 1234.1 /uL (0-25.8)
[2024-11-09 22:21] LABS: URINE CRYSTALS PRESENT /hpf; YEAST POSITIVE (NEGATIVE)
[2024-11-10] MEDS: MEROPENEM 1 GM in DEXTROSE 5%-WATER 100 ML IVPB SCH (00:58)
[2024-11-10] MEDS ORDERED: MEROPENEM-0.9% SODIUM CHLORIDE 1 GM/50 ML BAG IVPB ONE (00:59)
[2024-11-10] MEDS: INSULIN ASPART SLIDING SCALE (NOVOLOG) 1 VIAL SQ SCH (01:05)
[2024-11-10] MEDS ORDERED: traMADol HCL 50 MG TABLET PO PRN (01:47)
[2024-11-10] MEDS ORDERED: MEROPENEM-0.9% SODIUM CHLORIDE 1 GM/50 ML BAG IVPB SCH (04:00)
[2024-11-10] MEDS: GABAPENTIN 300 MG CAPSULE PO SCH (06:15)
[2024-11-10] MEDS: ACETAMINOPHEN 325 MG TABLET (FP) PO SCH (08:11)
[2024-11-10] MEDS ORDERED: VANCOMYCIN 750 MG IVPB SCH (10:00)
[2024-11-10] MEDS: APIXABAN 5 MG TABLET PO SCH (10:47)
[2024-11-10] MEDS: METOPROLOL TARTRATE 25 MG TABLET (FP) PO SCH (10:48)
[2024-11-10] MEDS: FAMOTIDINE 20 MG TABLET PO SCH (10:48)
[2024-11-10] MEDS: amLODIPine BESYLATE 10 MG TABLET (FP) PO SCH (10:48)
[2024-11-10] MEDS: MEROPENEM-0.9% SODIUM CHLORIDE 1 GM/50 ML BAG IVPB SCH (11:28)
[2024-11-10] MEDS: VANCOMYCIN/WATER FOR INJ (PEG) 750 MG/150 ML BAG IVPB SCH (11:28)
[2024-11-10 11:51] LABS: BASO % 0.3 % (0-2.0); EOS % 0.8 % (0-4.5); HEMATOCRIT 28.6 % (32.4-45.2); LYMPH % 10.2 % (8-40); MCHC 31.5 g/dl (32.0-36.0); MEAN CELL VOLUME 79.4 fl (80-96); MEAN PLT VOLUME 7.4 fl (7.5-11.1); MONO % 5.2 % (3.8-10.2); NEUT % 83.5 % (42.8-82.8); PLATELET COUNT 516 10^3/uL (134-434); RBC 3.61 M/mm3 (3.60-5.2); RDW 19.2 % (11.6-15.6); WHITE BLOOD COUNT 9.2 K/mm3 (4.0-10.0)
[2024-11-10 12:15] LABS: CHLORIDE 108 mmol/L (98-107); POTASSIUM 3.5 mmol/L (3.5-5.1); SODIUM 141 mmol/L (136-145)
[2024-11-10 12:17] LABS: ALBUMIN 1.4 g/dl (3.4-5.0); ANION GAP 4 mmol/L (4-13); BLOOD UREA NITROGEN 14.4 mg/dL (7-18); CALCIUM 7.9 mg/dL (8.5-10.1); CO2 29 mmol/L (21-32); GLUCOSE,RANDOM 166 mg/dL (74-106); MAGNESIUM 1.7 mg/dL (1.8-2.4)
[2024-11-10 12:20] LABS: CREATININE < 0.2 mg/dL (0.55-1.3); PHOSPHOROUS 2.7 mg/dL (2.5-4.9); SGOT/AST 50 U/L (15-37); SGPT/ALT 26 U/L (13-61)
[2024-11-10 12:22] LABS: BILIRUBIN,TOTAL 0.4 mg/dL (0.2-1); TOT PROT 5.4 g/dl (6.4-8.2)
[2024-11-10 12:23] LABS: ALK PHOS 103 U/L (45-117)
[2024-11-10] MEDS: VANCOMYCIN 750 MG in DEXTROSE 5%-WATER - 150 ML IVPB SCH (12:30)
[2024-11-10] MEDS ORDERED: DEXTROSE 5%-NORMAL SALINE 1,000 ML IV SCH (13:00)
[2024-11-10] MEDS: DEXTROSE 5%-NORMAL SALINE 1,000 ML IV SCH (13:22)
[2024-11-10] MEDS: COLLAGENASE CLOSTRIDIUM HIST. 30 GRAMS TUBE TP SCH (16:22)
[2024-11-10] MEDS: MAGNESIUM 2GM/50ML STERILE WATER IVPB IVPB ONE (16:42)
[2024-11-10] MEDS: PIPERACILLIN/TAZOB 3.375 GM 50 ML IVPB SCH (18:26)
[2024-11-10] MEDS ORDERED: ACETAMINOPHEN 1000 MG/100 ML BAG IVPB PRN (18:49)
[2024-11-10] MEDS: METOPROLOL TARTRATE 5 MG/5 ML VIAL IVPUSH SCH (21:19)
[2024-11-10] MEDS: LATANOPROST 0.005% OPHTH SOLN 2.5ML BOTTLE OD SCH (21:35)
[2024-11-10] MEDS: HEPARIN NA (PORCINE) 5,000 UNITS/ML 1ML VIAL SQ SCH (21:35)
[2024-11-10] MEDS ORDERED: ATORVASTATIN CA 40 MG TABLET (FP) PO SCH (22:00)
[2024-11-11] MEDS: ACETAMINOPHEN 1000 MG/100 ML BAG IVPB PRN (01:19)
[2024-11-11] MEDS: SODIUM CHLORIDE 1,000 ML IV SCH (06:42)
[2024-11-11 09:46] LABS: HEMATOCRIT 25.5 % (32.4-45.2); HEMOGLOBIN 7.9 GM/dL (10.7-15.3); MCHC 31.1 g/dl (32.0-36.0); MEAN CELL VOLUME 80.3 fl (80-96); MEAN PLT VOLUME 7.7 fl (7.5-11.1); PLATELET COUNT 440 10^3/uL (134-434); RBC 3.17 M/mm3 (3.60-5.2); RDW 19.2 % (11.6-15.6); WHITE BLOOD COUNT 7.9 K/mm3 (4.0-10.0)
[2024-11-11] MEDS ORDERED: COLLAGENASE CLOSTRIDIUM HIST. 30 GRAMS TUBE TP SCH (10:00)
[2024-11-11] MEDS: BACITRACIN ZINC 15 GM TUBE TOPICAL OINTMENT TP SCH (10:08)
[2024-11-11] MEDS: PANTOPRAZOLE SODIUM 40 MG VIAL IVPUSH SCH (10:08)
[2024-11-11] MEDS: amLODIPine BESYLATE 10 MG TABLET (FP) PO SCH (10:10)
[2024-11-11 10:14] LABS: CHLORIDE 112 mmol/L (98-107); POTASSIUM 3.3 mmol/L (3.5-5.1); SODIUM 144 mmol/L (136-145)
[2024-11-11 10:28] LABS: ANION GAP 9 mmol/L (4-13); CALCIUM 7.6 mg/dL (8.5-10.1); CO2 23 mmol/L (21-32)
[2024-11-11 10:29] LABS: BLOOD UREA NITROGEN 13.7 mg/dL (7-18); GLUCOSE,RANDOM 135 mg/dL (74-106); MAGNESIUM 2.1 mg/dL (1.8-2.4)
[2024-11-11 10:32] LABS: CREATININE < 0.2 mg/dL (0.55-1.3); PHOSPHOROUS 2.6 mg/dL (2.5-4.9)
[2024-11-11] MEDS: VANCOMYCIN/WATER FOR INJ (PEG) 1,000 MG/200 ML BAG IVPB SCH (15:26)
[2024-11-11 17:00] LABS: CHOLESTEROL 75 mg/dL (50-200)
[2024-11-11 17:01] LABS: LDL CHOLESTEROL (ONLY SJRH) 41 mg/dL (5-100)
[2024-11-11 17:03] LABS: HDL CHOLESTEROL 22 mg/dL (40-60)
[2024-11-11 17:05] LABS: N-TERMINAL BNP 610.4 pg/ml (5-125)
[2024-11-11] MEDS: MAGNESIUM 2GM/50ML STERILE WATER IVPB IVPB ONE (19:57)
[2024-11-11] MEDS: APIXABAN 5 MG TABLET PO SCH (19:57)
[2024-11-11] MEDS: METOPROLOL TARTRATE 25 MG TABLET (FP) PO SCH (21:31)
[2024-11-11] MEDS ORDERED: MEROPENEM-0.9% SODIUM CHLORIDE 1 GM/50 ML BAG IVPB SCH (22:00)
[2024-11-11] MEDS: KCL 10 MEQ IVPB 10 MEQ/100 ML INFUS.BAG IVPB SCH (23:05)
[2024-11-12] MEDS: KCL 10 MEQ IVPB 10 MEQ/100 ML INFUS.BAG IVPB SCH (01:10)
[2024-11-12 12:34] LABS: HEMATOCRIT 25.9 % (32.4-45.2); MCH 24.7 pg (25.7-33.7); MEAN CELL VOLUME 79.7 fl (80-96); MEAN PLT VOLUME 7.2 fl (7.5-11.1); PLATELET COUNT 474 10^3/uL (134-434); RBC 3.25 M/mm3 (3.60-5.2); WHITE BLOOD COUNT 12.4 K/mm3 (4.0-10.0)
[2024-11-12 12:56] LABS: CHLORIDE 113 mmol/L (98-107); POTASSIUM 3.3 mmol/L (3.5-5.1); SODIUM 143 mmol/L (136-145)
[2024-11-12 13:04] LABS: CALCIUM 7.7 mg/dL (8.5-10.1)
[2024-11-12 13:05] LABS: ALBUMIN 1.4 g/dl (3.4-5.0); ANION GAP 9 mmol/L (4-13); BLOOD UREA NITROGEN 8.6 mg/dL (7-18); CO2 21 mmol/L (21-32); GLUCOSE,RANDOM 121 mg/dL (74-106); MAGNESIUM 2.1 mg/dL (1.8-2.4)
[2024-11-12 13:07] LABS: CHOLESTEROL 83 mg/dL (50-200)
[2024-11-12 13:08] LABS: BILIRUBIN,TOTAL 0.4 mg/dL (0.2-1); PHOSPHOROUS 2.7 mg/dL (2.5-4.9); SGOT/AST 8 U/L (15-37); SGPT/ALT 14 U/L (13-61); TOT PROT 5.3 g/dl (6.4-8.2)
[2024-11-12 13:09] LABS: ALK PHOS 92 U/L (45-117); LDL CHOLESTEROL (ONLY SJRH) 46 mg/dL (5-100)
[2024-11-12 13:11] LABS: N-TERMINAL BNP 1103.1 pg/ml (5-125)
[2024-11-12 13:12] LABS: HDL CHOLESTEROL 26 mg/dL (40-60)
[2024-11-12 14:10] LABS: CREATININE < 0.2 mg/dL (0.55-1.3)
[2024-11-12] MEDS: AMINO ACIDS 4.25%/D5W 1,000 ML IV SCH (15:50)
[2024-11-12] MEDS: AMOX TR/POT CLAV 875MG/125MG TABLETS (FP) PO ONE (15:55)
[2024-11-12] MEDS: POTASSIUM CHLORIDE 20 MEQ in AMINO ACIDS 4.25%/D5W 1,000 ML IV SCH (17:14)
[2024-11-12] MEDS: IOHEXOL (OMNIPAQUE IV) 350 MG/ML - 100 ML BOTTLE GT ONE (17:26)
[2024-11-12] MEDS: HEPARIN NA (PORCINE) 5,000 UNITS/ML 1ML VIAL SQ SCH (22:09)
[2024-11-12] MEDS: NAPH,MB-DB/K PH,MBDB POWDER PACKET PO SCH (22:09)
[2024-11-12] MEDS: METOPROLOL TARTRATE 5 MG/5 ML VIAL IVPB SCH (22:39)
[2024-11-13] MEDS: VANCOMYCIN/WATER FOR INJ (PEG) 1,000 MG/200 ML BAG IVPB SCH (05:34)
[2024-11-13] MEDS ORDERED: AMOX TR/POT CLAV 875MG/125MG TABLETS (FP) PO SCH (06:00)
[2024-11-13 10:52] LABS: HEMATOCRIT 27.1 % (32.4-45.2); HEMOGLOBIN 8.5 GM/dL (10.7-15.3); MCH 25.1 pg (25.7-33.7); MCHC 31.2 g/dl (32.0-36.0); MEAN CELL VOLUME 80.4 fl (80-96); MEAN PLT VOLUME 7.1 fl (7.5-11.1); PLATELET COUNT 456 10^3/uL (134-434); RBC 3.37 M/mm3 (3.60-5.2); RDW 18.7 % (11.6-15.6); WHITE BLOOD COUNT 10.4 K/mm3 (4.0-10.0)
[2024-11-13 11:12] LABS: CHLORIDE 112 mmol/L (98-107); SODIUM 144 mmol/L (136-145)
[2024-11-13 11:19] LABS: BLOOD UREA NITROGEN 7.3 mg/dL (7-18)
[2024-11-13 11:22] LABS: CALCIUM 7.7 mg/dL (8.5-10.1); GLUCOSE,RANDOM 143 mg/dL (74-106)
[2024-11-13 11:23] LABS: ANION GAP 11 mmol/L (4-13); CO2 22 mmol/L (21-32)
[2024-11-13 11:46] LABS: CREATININE < 0.2 mg/dL (0.55-1.3)
[2024-11-13] MEDS: POTASSIUM CHLORIDE ORAL LIQUID 20 MEQ/15 ML PEG ONE ×2 (16:08→16:33)
[2024-11-13] MEDS: AMINO ACIDS/PROTEIN HYDROLYS 30 ML LIQUID.PKT PO SCH (16:09)
[2024-11-13] MEDS: MULTIVITAMINS (DAILY MVI) TABLET (FP) PO SCH (18:21)
[2024-11-13] MEDS: ACETAMINOPHEN 500 MG TABLET (FP) PO ONE (23:33)
[2024-11-14] MEDS: MULTIVITAMINS (DAILY MVI) TABLET (FP) PO SCH (09:43)
[2024-11-14 10:45] LABS: BASO % 0.5 % (0-2.0); EOS % 0.2 % (0-4.5); HEMATOCRIT 27.2 % (32.4-45.2); HEMOGLOBIN 8.4 GM/dL (10.7-15.3); LYMPH % 10.3 % (8-40); MCH 24.9 pg (25.7-33.7); MCHC 30.8 g/dl (32.0-36.0); MEAN CELL VOLUME 80.8 fl (80-96); MONO % 4.9 % (3.8-10.2); NEUT % 84.1 % (42.8-82.8); PLATELET COUNT 428 10^3/uL (134-434); RBC 3.36 M/mm3 (3.60-5.2); RDW 18.6 % (11.6-15.6); WHITE BLOOD COUNT 10.1 K/mm3 (4.0-10.0)
[2024-11-14 11:06] LABS: POTASSIUM 3.1 mmol/L (3.5-5.1)
[2024-11-14 11:11] LABS: ALBUMIN 1.5 g/dl (3.4-5.0); BLOOD UREA NITROGEN 8.6 mg/dL (7-18); CALCIUM 7.5 mg/dL (8.5-10.1)
[2024-11-14 11:15] LABS: CREATININE 0.2 mg/dL (0.55-1.3)
[2024-11-14 11:16] LABS: BILIRUBIN,TOTAL 0.2 mg/dL (0.2-1); TOT PROT 5.5 g/dl (6.4-8.2)
[2024-11-14 11:39] VITALS: BMI 24.6
[2024-11-14] MEDS: POTASSIUM CHLORIDE ORAL LIQUID 20 MEQ/15 ML PEG ONE (16:41)
[2024-11-15 12:14] LABS: BASO % 0.3 % (0-2.0); EOS % 0.5 % (0-4.5); HEMATOCRIT 27.2 % (32.4-45.2); HEMOGLOBIN 8.6 GM/dL (10.7-15.3); LYMPH % 15.1 % (8-40); MCH 24.8 pg (25.7-33.7); MCHC 31.7 g/dl (32.0-36.0); MEAN CELL VOLUME 78.2 fl (80-96); MEAN PLT VOLUME 6.6 fl (7.5-11.1); NEUT % 79.1 % (42.8-82.8); PLATELET COUNT 407 10^3/uL (134-434); RBC 3.48 M/mm3 (3.60-5.2); RDW 19.3 % (11.6-15.6); WHITE BLOOD COUNT 8.4 K/mm3 (4.0-10.0)
[2024-11-15 12:58] LABS: POTASSIUM 3.1 mmol/L (3.5-5.1)
[2024-11-15 13:04] LABS: CALCIUM 7.4 mg/dL (8.5-10.1)
[2024-11-15 13:05] LABS: ALBUMIN 1.4 g/dl (3.4-5.0); BLOOD UREA NITROGEN 9.3 mg/dL (7-18)
[2024-11-15 13:08] LABS: CREATININE 0.2 mg/dL (0.55-1.3)
[2024-11-15 13:09] LABS: BILIRUBIN,TOTAL 0.2 mg/dL (0.2-1); TOT PROT 5.4 g/dl (6.4-8.2)
[2024-11-15] MEDS: POTASSIUM CHLORIDE ORAL LIQUID 20 MEQ/15 ML GT ONE (14:17)
[2024-11-15] MEDS: KCL 10 MEQ IVPB 10 MEQ/100 ML INFUS.BAG IVPB SCH (14:17)
[2024-11-15] MEDS: APIXABAN 5 MG TABLET PO SCH (21:40)
[2024-11-15] MEDS: METOPROLOL TARTRATE 5 MG/5 ML VIAL IVPB SCH (21:42)
[2024-11-16] MEDS: FAMOTIDINE 20 MG TABLET PO SCH (09:45)
[2024-11-16] MEDS: METOPROLOL TARTRATE 25 MG TABLET (FP) GT SCH (09:45)
[2024-11-16 14:12] VITALS: RESP 20
[2024-11-16 16:07] VITALS: BP 133/83; PULSE 98; TEMP 98.1
== END 2024-11-16 16:00 | DRG 720 ==
LOC: JER 16:34 → JERBED 20:45 → J5S 11-10 02:40
PROVIDERS: ADMIT Internal Medicine; ATTEND Internal Medicine
PROC: 5A1955Z Respiratory Ventilation, Greater than 96 Consecutive Hours (ICD-10-PCS; principal; 2024-11-10)
DX: A41.50 Gram-negative sepsis, unspecified (principal); E43 Unspecified severe protein-calorie malnutrition; L89.154 Pressure ulcer of sacral region, stage 4; L89.623 Pressure ulcer of left heel, stage 3; L89.620 Pressure ulcer of left heel, unstageable; L89.310 Pressure ulcer of right buttock, unstageable; J18.9 Pneumonia, unspecified organism; J96.11 Chronic respiratory failure with hypoxia; R53.2 Functional quadriplegia; D64.9 Anemia, unspecified; E87.6 Hypokalemia; I48.91 Unspecified atrial fibrillation; H54.3 Unqualified visual loss, both eyes; E88.09 Other disorders of plasma-protein metabolism, not elsewhere classified; K56.7 Ileus, unspecified; R80.9 Proteinuria, unspecified; I10 Essential (primary) hypertension; M46.28 Osteomyelitis of vertebra, sacral and sacrococcygeal region; R64 Cachexia; Z68.22 Body mass index [BMI] 22.0-22.9, adult; Z86.711 Personal history of pulmonary embolism; Z93.0 Tracheostomy status
CPT/HCPCS: 0241U-QW; 36415; 36600; 71045-TC-FY; 71270-TC; 74019-TC-FY; 74177-TC; 80048; 80053; 80061; 81003; 82803; 82962; 83036; 83605; 83735; 83880; 84100; 84443; 84484; 85025; 85027; 85610; 85730; 86803; 86850; 86900; 86901; 87040; 87070; 87077; 87081; 87086; 87186; 87205; 87389; 87481; 93005; 93010; 94002; 99285-25; G0480; J0131; J1644; Q9967

== ENCOUNTER 2025-01-03 17:17 | Inpatient (IN) | payer OTHER ==
[2025-01-03 20:36] LABS: MCHC 29.6 g/dl (32.0-36.0); MEAN CELL VOLUME 80.9 fl (80-96); MEAN PLT VOLUME 8.9 fl (7.5-11.1); PLATELET COUNT 735 10^3/uL (134-434); RBC 2.83 M/mm3 (3.60-5.2); RDW 19.9 % (11.6-15.6); WHITE BLOOD COUNT 22.6 K/mm3 (4.0-10.0)
[2025-01-03 20:41] LABS: ADD RBC MORPHOLOGY YES
[2025-01-03 20:42] LABS: HEMATOCRIT 22.9 % (32.4-45.2); HEMOGLOBIN 6.8 GM/dL (10.7-15.3)
[2025-01-03 20:45] LABS: POTASSIUM 4.4 mmol/L (3.5-5.1)
[2025-01-03 20:47] LABS: CALCIUM 8.6 mg/dL (8.5-10.1)
[2025-01-03 20:48] LABS: ALBUMIN 1.8 g/dl (3.4-5.0); BLOOD UREA NITROGEN 35.7 mg/dL (7-18)
[2025-01-03 20:51] LABS: CREATININE 0.3 mg/dL (0.55-1.3)
[2025-01-03 20:53] LABS: BILIRUBIN,TOTAL 0.3 mg/dL (0.2-1); TOT PROT 8.2 g/dl (6.4-8.2)
[2025-01-03 21:06] LABS: ANISOCYTOSIS 3+; MACROCYTOSIS 0
[2025-01-03 21:52] LABS: VENOUS BASE EXCESS 4.5 mmol/L (-2-2); VENOUS PH 7.384 (7.310-7.410)
[2025-01-03] MEDS ORDERED: VANCOMYCIN 1 GM PREMIX (F) 1 GM/200 ML BAG ONE (22:42)
[2025-01-03] MEDS ORDERED: PIPERACILLIN/TAZOB 3.375 GM 3.375 GM/50 ML BAG IVPB ONE (22:42)
[2025-01-03] MEDS: PIPERACILLIN/TAZOB 3.375 GM 3.375 GM in DEXTROSE 5%-WATER - 50 ML IVPB ONE (22:47)
[2025-01-03] MEDS: VANCOMYCIN 1 GM PREMIX (F) 1 GM/200 ML BAG IVPB ONE (22:50)
[2025-01-04 03:15] LABS: INR 1.39 (0.83-1.09); PROTHROMBIN TIME (PATIENT) 15.2 SEC (9.7-13.0)
[2025-01-04 03:17] LABS: ACTIVATED PTT 28.3 SECONDS (25.2-36.5)
[2025-01-04 03:20] LABS: EPI CELLS 29 /uL (0-25.1); HYALINE CASTS 2 /uL (0-3.1); URINE APPEARANCE CLEAR; URINE BACTERIA 96 /uL (0-1359); URINE BILIRUBIN NEGATIVE (NEGATIVE); URINE COLOR YELLOW; URINE GLUCOSE (UA) NEGATIVE (NEGATIVE); URINE KETONE NEGATIVE (NEGATIVE); URINE LEUK ESTERASE TRACE (NEGATIVE); URINE NITRITE NEGATIVE (NEGATIVE); URINE PROTEIN 2+ (NEGATIVE); URINE UROBILINOGEN 0.2 mg/dL (0.2-1.0); URINE WBC 310 /uL (0-25.8)
[2025-01-04 04:10] LABS: URINE RBC 662.5 /uL (0-23.9); YEAST MODEATE (NEGATIVE)
[2025-01-04] MEDS ORDERED: traMADol HCL 50 MG TABLET NGT PRN (04:44)
[2025-01-04] MEDS: MEROPENEM-0.9% SODIUM CHLORIDE 1 GM/50 ML BAG IVPB SCH (04:54)
[2025-01-04] MEDS: LACTATED RINGERS SOLUTION 1,000 ML/1,000 ML INFUS.BAG IV STA (04:55)
[2025-01-04] MEDS: LACTATED RINGERS SOLUTION 1,000 ML/1,000 ML INFUS.BAG IV SCH (05:50)
[2025-01-04] MEDS: INSULIN ASPART SLIDING SCALE (NOVOLOG) 1 VIAL SQ SCH (06:21)
[2025-01-04 07:20] LABS: BASO % 0.3 % (0-2.0); EOS % 0.1 % (0-4.5); HEMATOCRIT 22.3 % (32.4-45.2); LYMPH % 6.4 % (8-40); MCH 25.5 pg (25.7-33.7); MCHC 31.3 g/dl (32.0-36.0); MEAN CELL VOLUME 81.4 fl (80-96); MEAN PLT VOLUME 8.7 fl (7.5-11.1); MONO % 4.6 % (3.8-10.2); NEUT % 88.6 % (42.8-82.8); PLATELET COUNT 480 10^3/uL (134-434); RBC 2.74 M/mm3 (3.60-5.2); RDW 18.6 % (11.6-15.6); WHITE BLOOD COUNT 13.6 K/mm3 (4.0-10.0)
[2025-01-04 07:52] LABS: BLOOD UREA NITROGEN 34.8 mg/dL (7-18); CALCIUM 7.6 mg/dL (8.5-10.1); MAGNESIUM 2.1 mg/dL (1.8-2.4)
[2025-01-04 07:55] LABS: CREATININE 0.2 mg/dL (0.55-1.3)
[2025-01-04 07:56] LABS: PHOSPHOROUS 3.9 mg/dL (2.5-4.9)
[2025-01-04 07:57] LABS: BILIRUBIN,TOTAL 0.6 mg/dL (0.2-1)
[2025-01-04 08:04] LABS: ALBUMIN 1.4 g/dl (3.4-5.0); TOT PROT 6.2 g/dl (6.4-8.2)
[2025-01-04] MEDS: traMADol HCL 50 MG TABLET NGT PRN (08:57)
[2025-01-04] MEDS: AMINO ACIDS/PROTEIN HYDROLYS 30 ML LIQUID.PKT GT SCH (08:59)
[2025-01-04] MEDS: COLLAGENASE CLOSTRIDIUM HIST. 30 GRAMS TUBE TP SCH (08:59)
[2025-01-04] MEDS: ASCORBIC ACID 500 MG TABLET (FP) GT SCH (08:59)
[2025-01-04 09:48] LABS: ERYTHROCYTE SEDIMENTATION RATE > 140 mm/hr (0-30)
[2025-01-04] MEDS: FAMOTIDINE 20 MG/2.5 ML ORAL LIQUID NGT SCH (11:31)
[2025-01-04] MEDS: VANCOMYCIN 1 GM PREMIX (F) 1 GM/200 ML BAG IVPB SCH (11:31)
[2025-01-04 13:58] VITALS: BMI 22.6
[2025-01-04 15:23] LABS: HEMOGLOBIN 7.5 GM/dL (10.7-15.3); MCHC 31.2 g/dl (32.0-36.0); MEAN CELL VOLUME 80.2 fl (80-96); MEAN PLT VOLUME 8.2 fl (7.5-11.1); PLATELET COUNT 505 10^3/uL (134-434); RDW 18.6 % (11.6-15.6); WHITE BLOOD COUNT 13.3 K/mm3 (4.0-10.0)
[2025-01-04] MEDS: VANCOMYCIN 750 MG in DEXTROSE 5%-WATER - 150 ML IVPB SCH (18:46)
[2025-01-04] MEDS: BACITRACIN ZINC 15 GM TUBE TOPICAL OINTMENT TP SCH (18:54)
[2025-01-04] MEDS: ATORVASTATIN CA 40 MG TABLET (FP) GT SCH (21:05)
[2025-01-04] MEDS: METOPROLOL TARTRATE 25 MG TABLET (FP) GT SCH (21:05)
[2025-01-04] MEDS: HEPARIN NA (PORCINE) 5,000 UNITS/ML 1ML VIAL SQ SCH (21:58)
[2025-01-04] MEDS: ACETAMINOPHEN 1000 MG/100 ML BAG IVPB PRN (21:58)
[2025-01-04] MEDS: METOPROLOL TARTRATE 5 MG/5 ML VIAL IVPUSH PRN (21:59)
[2025-01-04] MEDS: NYSTATIN 100,000 UNIT/GM TOPICAL CREAM 15 GM TUBE TP SCH (21:59)
[2025-01-04] MEDS: LATANOPROST 0.005% OPHTH SOLN 2.5ML BOTTLE OD SCH (21:59)
[2025-01-04] MEDS: ZINC OXIDE 20% TOPICAL OINTMENT 30 GM TUBE TP SCH (21:59)
[2025-01-04] MEDS ORDERED: VANCOMYCIN/WATER FOR INJ (PEG) 750 MG/150 ML BAG IVPB SCH (23:00)
[2025-01-05 08:26] LABS: BASO % 0.1 % (0-2.0); EOS % 0.2 % (0-4.5); HEMATOCRIT 25.5 % (32.4-45.2); HEMOGLOBIN 7.8 GM/dL (10.7-15.3); LYMPH % 10.3 % (8-40); MCH 25.1 pg (25.7-33.7); MCHC 30.5 g/dl (32.0-36.0); MEAN PLT VOLUME 8.5 fl (7.5-11.1); MONO % 4.6 % (3.8-10.2); NEUT % 84.8 % (42.8-82.8); PLATELET COUNT 560 10^3/uL (134-434); RBC 3.11 M/mm3 (3.60-5.2); RDW 18.5 % (11.6-15.6); WHITE BLOOD COUNT 11.5 K/mm3 (4.0-10.0)
[2025-01-05 08:44] LABS: POTASSIUM 3.8 mmol/L (3.5-5.1)
[2025-01-05 08:53] LABS: ALBUMIN 1.4 g/dl (3.4-5.0); BLOOD UREA NITROGEN 30.4 mg/dL (7-18); CALCIUM 8.2 mg/dL (8.5-10.1); MAGNESIUM 2.3 mg/dL (1.8-2.4)
[2025-01-05 08:56] LABS: CREATININE 0.2 mg/dL (0.55-1.3); PHOSPHOROUS 3.2 mg/dL (2.5-4.9)
[2025-01-05 08:58] LABS: BILIRUBIN,TOTAL 0.4 mg/dL (0.2-1); TOT PROT 6.4 g/dl (6.4-8.2)
[2025-01-05] MEDS: APIXABAN 5 MG TABLET GT SCH (10:15)
[2025-01-05] MEDS: IOHEXOL (OMNIPAQUE IV) 350 MG/ML - 100 ML BOTTLE GT ONE (18:06)
[2025-01-05] MEDS: METOPROLOL TARTRATE 25 MG TABLET (FP) GT SCH (21:28)
[2025-01-06 07:39] LABS: BASO % 0.1 % (0-2.0); EOS % 0.1 % (0-4.5); HEMATOCRIT 22.9 % (32.4-45.2); HEMOGLOBIN 7.1 GM/dL (10.7-15.3); LYMPH % 8.3 % (8-40); MCH 25.4 pg (25.7-33.7); MCHC 30.9 g/dl (32.0-36.0); MEAN CELL VOLUME 82.1 fl (80-96); MEAN PLT VOLUME 7.8 fl (7.5-11.1); MONO % 4.6 % (3.8-10.2); NEUT % 86.9 % (42.8-82.8); PLATELET COUNT 567 10^3/uL (134-434); RBC 2.78 M/mm3 (3.60-5.2); WHITE BLOOD COUNT 13.8 K/mm3 (4.0-10.0)
[2025-01-06 07:54] LABS: POTASSIUM 3.2 mmol/L (3.5-5.1)
[2025-01-06 08:05] LABS: ALBUMIN 1.4 g/dl (3.4-5.0); BLOOD UREA NITROGEN 16.3 mg/dL (7-18); MAGNESIUM 1.9 mg/dL (1.8-2.4)
[2025-01-06 08:08] LABS: CREATININE 0.2 mg/dL (0.55-1.3); PHOSPHOROUS 2.2 mg/dL (2.5-4.9)
[2025-01-06 08:09] LABS: BILIRUBIN,TOTAL 0.4 mg/dL (0.2-1)
[2025-01-06 08:10] LABS: TOT PROT 6.2 g/dl (6.4-8.2)
[2025-01-06] MEDS: METOPROLOL TARTRATE 25 MG TABLET (FP) GT SCH (09:12)
[2025-01-06] MEDS: KCL 20 MEQ PREMIX BAG 20 MEQ/100 ML INFUS.BAG IVPB SCH (10:43)
[2025-01-06] MEDS: KCL 10 MEQ IVPB 10 MEQ/100 ML INFUS.BAG IVPB SCH (10:57)
[2025-01-06] MEDS ORDERED: VANCOMYCIN 1 GM PREMIX (F) 1 GM/200 ML BAG IVPB SCH (11:00)
[2025-01-06] MEDS: MEROPENEM-0.9% SODIUM CHLORIDE 1 GM/50 ML BAG IVPB SCH ×2 (18:18)
[2025-01-07 07:14] LABS: BASO % 0.2 % (0-2.0); EOS % 0.9 % (0-4.5); HEMOGLOBIN 7.2 GM/dL (10.7-15.3); LYMPH % 12.2 % (8-40); MCH 25.7 pg (25.7-33.7); MCHC 31.2 g/dl (32.0-36.0); MEAN CELL VOLUME 82.5 fl (80-96); MEAN PLT VOLUME 7.5 fl (7.5-11.1); MONO % 5.2 % (3.8-10.2); NEUT % 81.5 % (42.8-82.8); PLATELET COUNT 547 10^3/uL (134-434); RBC 2.79 M/mm3 (3.60-5.2); RDW 19.6 % (11.6-15.6); WHITE BLOOD COUNT 11.6 K/mm3 (4.0-10.0)
[2025-01-07 07:32] LABS: CHLORIDE 103 mmol/L (98-107); POTASSIUM 3.4 mmol/L (3.5-5.1); SODIUM 143 mmol/L (136-145)
[2025-01-07 07:36] LABS: ALBUMIN 1.4 g/dl (3.4-5.0); CALCIUM 7.8 mg/dL (8.5-10.1)
[2025-01-07 07:37] LABS: ANION GAP 6 mmol/L (4-13); BLOOD UREA NITROGEN 9.5 mg/dL (7-18); CO2 34 mmol/L (21-32); GLUCOSE,RANDOM 161 mg/dL (74-106); MAGNESIUM 1.7 mg/dL (1.8-2.4)
[2025-01-07 07:39] LABS: SGPT/ALT 14 U/L (13-61)
[2025-01-07 07:40] LABS: CREATININE < 0.2 mg/dL (0.55-1.3); PHOSPHOROUS 2.2 mg/dL (2.5-4.9); SGOT/AST 13 U/L (15-37)
[2025-01-07 07:41] LABS: BILIRUBIN,TOTAL 0.4 mg/dL (0.2-1); TOT PROT 6.1 g/dl (6.4-8.2)
[2025-01-07 07:42] LABS: ALK PHOS 106 U/L (45-117)
[2025-01-07] MEDS ORDERED: KCL 10 MEQ IVPB 10 MEQ/100 ML INFUS.BAG IVPB SCH (08:45)
[2025-01-07] MEDS: NAPH,MB-DB/K PH,MBDB POWDER PACKET GT ONE (08:59)
[2025-01-07] MEDS: MAGNESIUM SULFATE IN WATER 2 GM/50 ML IVPB IVPB ONE (08:59)
[2025-01-07] MEDS: POTASSIUM CHLORIDE ORAL LIQUID 20 MEQ/15 ML PO ONE (09:41)
[2025-01-07] MEDS: NAPH,MB-DB/K PH,MBDB POWDER PACKET PO SCH (14:55)
[2025-01-07] MEDS: POTASSIUM PHOSPHATE 30 MM in DEXTROSE 5%-WATER - 500 ML IVPB ONE (18:07)
[2025-01-07] MEDS ORDERED: ACETAMINOPHEN 1000 MG/100 ML BAG IVPB PRN (18:10)
[2025-01-08 06:52] LABS: BASO % 0.3 % (0-2.0); EOS % 0.9 % (0-4.5); HEMATOCRIT 25.6 % (32.4-45.2); HEMOGLOBIN 7.7 GM/dL (10.7-15.3); LYMPH % 12.1 % (8-40); MCH 24.8 pg (25.7-33.7); MCHC 30.2 g/dl (32.0-36.0); MEAN CELL VOLUME 82.1 fl (80-96); MEAN PLT VOLUME 7.3 fl (7.5-11.1); MONO % 4.7 % (3.8-10.2); PLATELET COUNT 502 10^3/uL (134-434); RBC 3.12 M/mm3 (3.60-5.2); RDW 20.3 % (11.6-15.6); WHITE BLOOD COUNT 11.6 K/mm3 (4.0-10.0)
[2025-01-08 07:03] LABS: CHLORIDE 102 mmol/L (98-107); POTASSIUM 3.7 mmol/L (3.5-5.1); SODIUM 142 mmol/L (136-145)
[2025-01-08 07:05] LABS: CALCIUM 7.7 mg/dL (8.5-10.1)
[2025-01-08 07:06] LABS: ALBUMIN 1.4 g/dl (3.4-5.0); ANION GAP 6 mmol/L (4-13); BLOOD UREA NITROGEN 11.8 mg/dL (7-18); CO2 34 mmol/L (21-32); GLUCOSE,RANDOM 210 mg/dL (74-106); MAGNESIUM 1.9 mg/dL (1.8-2.4)
[2025-01-08 07:09] LABS: CREATININE < 0.2 mg/dL (0.55-1.3); PHOSPHOROUS 2.9 mg/dL (2.5-4.9); SGOT/AST 11 U/L (15-37); SGPT/ALT 13 U/L (13-61)
[2025-01-08 07:10] LABS: BILIRUBIN,TOTAL 0.3 mg/dL (0.2-1)
[2025-01-08 07:11] LABS: TOT PROT 5.8 g/dl (6.4-8.2)
[2025-01-08 07:12] LABS: ALK PHOS 101 U/L (45-117)
[2025-01-08] MEDS ORDERED: INSULIN ASPART SLIDING SCALE (NOVOLOG) 1 VIAL SQ ONE (09:46)
[2025-01-08] MEDS ORDERED: ACETAMINOPHEN 1000 MG/100 ML BAG IVPB PRN (17:13)
[2025-01-08] MEDS: MEROPENEM-0.9% SODIUM CHLORIDE 1 GM/50 ML BAG IVPB SCH (21:50)
[2025-01-08] MEDS: ATORVASTATIN CA 40 MG TABLET (FP) GT SCH (22:38)
[2025-01-08] MEDS: METOPROLOL TARTRATE 25 MG TABLET (FP) GT SCH (22:40)
[2025-01-08] MEDS: LATANOPROST 0.005% OPHTH SOLN 2.5ML BOTTLE OD SCH (22:43)
[2025-01-08] MEDS: NYSTATIN 100,000 UNIT/GM TOPICAL CREAM 15 GM TUBE TP SCH (22:43)
[2025-01-08] MEDS: ZINC OXIDE 20% TOPICAL OINTMENT 30 GM TUBE TP SCH (22:44)
[2025-01-09] MEDS: AMINO ACIDS/PROTEIN HYDROLYS 30 ML LIQUID.PKT GT SCH (02:16)
[2025-01-09] MEDS: INSULIN ASPART SLIDING SCALE (NOVOLOG) 1 VIAL SQ SCH (06:16)
[2025-01-09 09:38] LABS: HEMATOCRIT 22.1 % (32.4-45.2); MCH 25.5 pg (25.7-33.7); MCHC 31.2 g/dl (32.0-36.0); MEAN CELL VOLUME 81.8 fl (80-96); MEAN PLT VOLUME 7.4 fl (7.5-11.1); PLATELET COUNT 436 10^3/uL (134-434); RBC 2.71 M/mm3 (3.60-5.2); RDW 20.5 % (11.6-15.6); WHITE BLOOD COUNT 9.4 K/mm3 (4.0-10.0)
[2025-01-09 09:48] LABS: HEMOGLOBIN 6.9 GM/dL (10.7-15.3)
[2025-01-09 09:53] LABS: POTASSIUM 3.8 mmol/L (3.5-5.1)
[2025-01-09 09:57] LABS: CALCIUM 7.6 mg/dL (8.5-10.1)
[2025-01-09 09:58] LABS: ALBUMIN 1.3 g/dl (3.4-5.0); BLOOD UREA NITROGEN 16.5 mg/dL (7-18); MAGNESIUM 1.8 mg/dL (1.8-2.4)
[2025-01-09 10:01] LABS: CREATININE 0.2 mg/dL (0.55-1.3); PHOSPHOROUS 2.9 mg/dL (2.5-4.9)
[2025-01-09 10:02] LABS: BILIRUBIN,TOTAL 0.2 mg/dL (0.2-1)
[2025-01-09 10:03] LABS: TOT PROT 5.4 g/dl (6.4-8.2)
[2025-01-09] MEDS: FAMOTIDINE 20 MG/2.5 ML ORAL LIQUID NGT SCH (10:18)
[2025-01-09] MEDS: SODIUM CHLORIDE 0.9% 500 ML INFUS.BAG IV ONE (10:20)
[2025-01-09] MEDS: BACITRACIN ZINC 15 GM TUBE TOPICAL OINTMENT TP SCH (10:26)
[2025-01-09] MEDS: ASCORBIC ACID 500 MG TABLET (FP) GT SCH (10:26)
[2025-01-09 22:26] LABS: HEMATOCRIT 28.2 % (32.4-45.2); HEMOGLOBIN 9.2 GM/dL (10.7-15.3); MCH 26.2 pg (25.7-33.7); MCHC 32.4 g/dl (32.0-36.0); MEAN CELL VOLUME 80.7 fl (80-96); MEAN PLT VOLUME 7.2 fl (7.5-11.1); PLATELET COUNT 383 10^3/uL (134-434); RDW 19.2 % (11.6-15.6); WHITE BLOOD COUNT 9.9 K/mm3 (4.0-10.0)
[2025-01-10] MEDS ORDERED: IOHEXOL (OMNIPAQUE IV) 350 MG/ML - 100 ML BOTTLE GT ONE (08:00)
[2025-01-10] MEDS: FAMOTIDINE 20 MG/2.5 ML ORAL LIQUID NGT SCH (10:01)
[2025-01-10 11:51] LABS: POTASSIUM 3.8 mmol/L (3.5-5.1)
[2025-01-10 11:52] LABS: HEMATOCRIT 26.1 % (32.4-45.2); HEMOGLOBIN 8.2 GM/dL (10.7-15.3); MCH 26.1 pg (25.7-33.7); MCHC 31.5 g/dl (32.0-36.0); MEAN CELL VOLUME 82.9 fl (80-96); MEAN PLT VOLUME 8.1 fl (7.5-11.1); PLATELET COUNT 175 10^3/uL (134-434); RBC 3.15 M/mm3 (3.60-5.2); WHITE BLOOD COUNT 10.6 K/mm3 (4.0-10.0)
[2025-01-10 12:00] LABS: ALBUMIN 1.4 g/dl (3.4-5.0); BLOOD UREA NITROGEN 21.4 mg/dL (7-18); CALCIUM 7.7 mg/dL (8.5-10.1)
[2025-01-10 12:03] LABS: CREATININE 0.2 mg/dL (0.55-1.3); PHOSPHOROUS 2.4 mg/dL (2.5-4.9)
[2025-01-10 12:05] LABS: BILIRUBIN,TOTAL 0.4 mg/dL (0.2-1); TOT PROT 6.1 g/dl (6.4-8.2)
[2025-01-10] MEDS: diphenhydrAMINE HCL 12.5 MG/5 ML UNIT-DOSE CUPS GT ONE (13:33)
[2025-01-10] MEDS: NAPH,MB-DB/K PH,MBDB POWDER PACKET GT ONE (13:33)
[2025-01-10] MEDS: INSULIN (LEVEMIR) 100 UNITS/ML UNITS SQ SCH (21:09)
[2025-01-11] MEDS: traMADol HCL 50 MG TABLET NGT PRN (04:04)
[2025-01-11] MEDS: METOPROLOL TARTRATE 5 MG/5 ML VIAL IVPUSH PRN (07:16)
[2025-01-11] MEDS ORDERED: traMADol HCL 50 MG TABLET PEG PRN (07:46)
[2025-01-11] MEDS: FAMOTIDINE 20 MG/2.5 ML ORAL LIQUID GT SCH (09:06)
[2025-01-11 10:37] LABS: BASO % 0.5 % (0-2.0); EOS % 0.1 % (0-4.5); HEMATOCRIT 28.1 % (32.4-45.2); LYMPH % 14.1 % (8-40); MCH 26.7 pg (25.7-33.7); MEAN CELL VOLUME 83.5 fl (80-96); MEAN PLT VOLUME 7.9 fl (7.5-11.1); MONO % 7.3 % (3.8-10.2); PLATELET COUNT 280 10^3/uL (134-434); RBC 3.37 M/mm3 (3.60-5.2); RDW 20.2 % (11.6-15.6); WHITE BLOOD COUNT 10.3 K/mm3 (4.0-10.0)
[2025-01-11 11:30] LABS: POTASSIUM 3.6 mmol/L (3.5-5.1)
[2025-01-11 11:33] LABS: ALBUMIN 1.4 g/dl (3.4-5.0); BLOOD UREA NITROGEN 22.7 mg/dL (7-18)
[2025-01-11 11:35] LABS: CALCIUM 7.5 mg/dL (8.5-10.1)
[2025-01-11 11:37] LABS: CREATININE 0.4 mg/dL (0.55-1.3); PHOSPHOROUS 1.8 mg/dL (2.5-4.9)
[2025-01-11 11:41] LABS: TOT PROT 6.2 g/dl (6.4-8.2)
[2025-01-11 11:43] LABS: BILIRUBIN,TOTAL 0.3 mg/dL (0.2-1)
[2025-01-11] MEDS: INSULIN ASPART SLIDING SCALE (NOVOLOG) 1 VIAL SQ SCH ×2 (11:52→21:51)
[2025-01-11] MEDS: ACETAMINOPHEN 1000 MG/100 ML BAG IVPB PRN (12:59)
[2025-01-11] MEDS: ARTIFICIAL TEARS OPHTHALMIC DROPS OU SCH (13:00)
[2025-01-11] MEDS: LACTATED RINGERS SOLUTION 1000 ML INFUS.BAG IV ONE ×4 (13:08→22:29)
[2025-01-11] MEDS: VANCOMYCIN 1 GM PREMIX (F) 1 GM/200 ML BAG IVPB ONE (17:22)
[2025-01-11] MEDS: INSULIN (LEVEMIR) 100 UNITS/ML UNITS SQ SCH (21:52)
[2025-01-11 23:16] LABS: EPI CELLS 3 /uL (0-25.1); HYALINE CASTS 10 /uL (0-3.1); PH,URINE 6.5 (5.0-8.0); URINE APPEARANCE CLOUDY; URINE BACTERIA 26 /uL (0-1359); URINE BILIRUBIN NEGATIVE (NEGATIVE); URINE COLOR DK YELLOW; URINE GLUCOSE (UA) NEGATIVE (NEGATIVE); URINE KETONE NEGATIVE (NEGATIVE); URINE LEUK ESTERASE 1+ (NEGATIVE); URINE NITRITE NEGATIVE (NEGATIVE); URINE PROTEIN 3+ (NEGATIVE); URINE WBC 943 /uL (0-25.8)
[2025-01-12] MEDS: MEROPENEM-0.9% SODIUM CHLORIDE 1 GM/50 ML BAG IVPB SCH (01:34)
[2025-01-12 10:20] LABS: POTASSIUM 3.6 mmol/L (3.5-5.1)
[2025-01-12 10:24] LABS: BLOOD UREA NITROGEN 26.6 mg/dL (7-18); CALCIUM 7.3 mg/dL (8.5-10.1); MAGNESIUM 1.9 mg/dL (1.8-2.4)
[2025-01-12 10:27] LABS: CREATININE 0.2 mg/dL (0.55-1.3); PHOSPHOROUS 2.1 mg/dL (2.5-4.9)
[2025-01-12 10:39] LABS: URINE RBC 550 /uL (0-23.9); YEAST PRESENT (NEGATIVE)
[2025-01-12 12:21] LABS: HEMATOCRIT 28.1 % (32.4-45.2); HEMOGLOBIN 8.6 GM/dL (10.7-15.3); MCH 25.6 pg (25.7-33.7); MCHC 30.6 g/dl (32.0-36.0); MEAN CELL VOLUME 83.6 fl (80-96); MEAN PLT VOLUME 9.2 fl (7.5-11.1); PLATELET COUNT 510 10^3/uL (134-434); RBC 3.36 M/mm3 (3.60-5.2); RDW 21.7 % (11.6-15.6); WHITE BLOOD COUNT 15.5 K/mm3 (4.0-10.0)
[2025-01-12] MEDS: SODIUM CHLORIDE 500 ML IV STA (15:39)
[2025-01-12] MEDS: ACETAMINOPHEN 650 MG/20.3 ML ORAL SOLUTION (CUPS) GT ONE (15:52)
[2025-01-12] MEDS ORDERED: VANCOMYCIN/WATER FOR INJ (PEG) 750 MG/150 ML BAG IVPB ONE (16:00)
[2025-01-12] MEDS: ACETAMINOPHEN 1000 MG/100 ML BAG IVPB ONE (19:45)
[2025-01-12] MEDS: ACETAMINOPHEN 500 MG TABLET (FP) PO ONE (19:46)
[2025-01-12] MEDS: METOPROLOL TARTRATE 50 MG TABLET (FP) GT SCH (22:36)
[2025-01-12] MEDS: APIXABAN 5 MG TABLET PO SCH (22:37)
[2025-01-12] MEDS: VANCOMYCIN 750 MG in DEXTROSE 5%-WATER - 150 ML IVPB SCH (22:37)
[2025-01-12] MEDS: ACETAMINOPHEN 325 MG TABLET (FP) PO ONE (22:53)
[2025-01-13] MEDS ORDERED: METOPROLOL TARTRATE 5 MG/5 ML VIAL IVPUSH PRN (02:44)
[2025-01-13] MEDS ORDERED: traMADol HCL 50 MG TABLET PEG PRN (02:44)
[2025-01-13] MEDS: INSULIN (LEVEMIR) 100 UNITS/ML UNITS SQ SCH (06:05)
[2025-01-13] MEDS: INSULIN ASPART SLIDING SCALE (NOVOLOG) 1 VIAL SQ SCH (06:13)
[2025-01-13] MEDS: COLLAGENASE CLOSTRIDIUM HIST. 30 GRAMS TUBE TP SCH (06:14)
[2025-01-13 06:42] LABS: HEMATOCRIT 27.8 % (32.4-45.2); HEMOGLOBIN 8.6 GM/dL (10.7-15.3); MCH 26.2 pg (25.7-33.7); MCHC 31.1 g/dl (32.0-36.0); MEAN CELL VOLUME 84.5 fl (80-96); MEAN PLT VOLUME 8.7 fl (7.5-11.1); PLATELET COUNT 205 10^3/uL (134-434); RBC 3.28 M/mm3 (3.60-5.2); RDW 20.1 % (11.6-15.6)
[2025-01-13 06:48] LABS: POTASSIUM 3.7 mmol/L (3.5-5.1)
[2025-01-13 06:54] LABS: ALBUMIN 1.4 g/dl (3.4-5.0); CALCIUM 7.6 mg/dL (8.5-10.1)
[2025-01-13 06:55] LABS: BLOOD UREA NITROGEN 23.5 mg/dL (7-18); MAGNESIUM 1.9 mg/dL (1.8-2.4)
[2025-01-13 06:58] LABS: CREATININE 0.2 mg/dL (0.55-1.3); PHOSPHOROUS 2.5 mg/dL (2.5-4.9)
[2025-01-13 06:59] LABS: BILIRUBIN,TOTAL 0.3 mg/dL (0.2-1); TOT PROT 6.1 g/dl (6.4-8.2)
[2025-01-13] MEDS: ARTIFICIAL TEARS OPHTHALMIC DROPS OU SCH (07:00)
[2025-01-13] MEDS: AMINO ACIDS/PROTEIN HYDROLYS 30 ML LIQUID.PKT GT SCH (09:00)
[2025-01-13] MEDS: BACITRACIN ZINC 15 GM TUBE TOPICAL OINTMENT TP SCH (09:27)
[2025-01-13] MEDS: METOPROLOL TARTRATE 50 MG TABLET (FP) GT SCH (09:28)
[2025-01-13] MEDS: ASCORBIC ACID 500 MG TABLET (FP) GT SCH (09:28)
[2025-01-13] MEDS: MEROPENEM-0.9% SODIUM CHLORIDE 1 GM/50 ML BAG IVPB SCH (09:29)
[2025-01-13] MEDS: FUROSEMIDE 40 MG/4 ML INJECTABLE VIAL IVPUSH ONE (13:57)
[2025-01-13] MEDS: NYSTATIN 100,000 UNIT/GM TOPICAL CREAM 15 GM TUBE TP SCH (15:54)
[2025-01-13] MEDS: ZINC OXIDE 20% TOPICAL OINTMENT 30 GM TUBE TP SCH (15:54)
[2025-01-13] MEDS: VANCOMYCIN/WATER FOR INJ (PEG) 750 MG/150 ML BAG IVPB SCH (17:20)
[2025-01-13] MEDS: FAMOTIDINE 20 MG/2.5 ML ORAL LIQUID GT SCH (17:21)
[2025-01-13] MEDS: ATORVASTATIN CA 40 MG TABLET (FP) GT SCH (21:31)
[2025-01-13] MEDS: LATANOPROST 0.005% OPHTH SOLN 2.5ML BOTTLE OD SCH (22:02)
[2025-01-14 06:57] LABS: HEMOGLOBIN 8.1 GM/dL (10.7-15.3); MCH 26.6 pg (25.7-33.7); MCHC 31.2 g/dl (32.0-36.0); MEAN CELL VOLUME 85.4 fl (80-96); PLATELET COUNT 183 10^3/uL (134-434); RBC 3.04 M/mm3 (3.60-5.2); RDW 20.1 % (11.6-15.6); WHITE BLOOD COUNT 10.8 K/mm3 (4.0-10.0)
[2025-01-14 07:15] LABS: POTASSIUM 3.9 mmol/L (3.5-5.1)
[2025-01-14 07:16] LABS: CALCIUM 7.6 mg/dL (8.5-10.1)
[2025-01-14 07:17] LABS: ALBUMIN 1.2 g/dl (3.4-5.0); BLOOD UREA NITROGEN 25.6 mg/dL (7-18)
[2025-01-14 07:20] LABS: CREATININE 0.2 mg/dL (0.55-1.3)
[2025-01-14 07:22] LABS: BILIRUBIN,TOTAL 0.2 mg/dL (0.2-1); TOT PROT 5.6 g/dl (6.4-8.2)
[2025-01-14] MEDS: FUROSEMIDE 40 MG/4 ML INJECTABLE VIAL IVPUSH ONE (13:37)
[2025-01-15 08:03] LABS: HEMATOCRIT 27.7 % (32.4-45.2); HEMOGLOBIN 8.7 GM/dL (10.7-15.3); MCH 26.6 pg (25.7-33.7); MCHC 31.3 g/dl (32.0-36.0); MEAN CELL VOLUME 84.9 fl (80-96); MEAN PLT VOLUME 9.3 fl (7.5-11.1); PLATELET COUNT 182 10^3/uL (134-434); RBC 3.27 M/mm3 (3.60-5.2); WHITE BLOOD COUNT 8.1 K/mm3 (4.0-10.0)
[2025-01-15 08:14] LABS: POTASSIUM 3.7 mmol/L (3.5-5.1)
[2025-01-15 08:16] LABS: ALBUMIN 1.4 g/dl (3.4-5.0); BLOOD UREA NITROGEN 26.3 mg/dL (7-18); CALCIUM 7.8 mg/dL (8.5-10.1)
[2025-01-15 08:20] LABS: CREATININE 0.2 mg/dL (0.55-1.3)
[2025-01-15 08:21] LABS: BILIRUBIN,TOTAL 0.2 mg/dL (0.2-1); TOT PROT 6.2 g/dl (6.4-8.2)
[2025-01-16 06:38] LABS: HEMATOCRIT 28.1 % (32.4-45.2); HEMOGLOBIN 8.6 GM/dL (10.7-15.3); MCHC 30.6 g/dl (32.0-36.0); MEAN PLT VOLUME 9.2 fl (7.5-11.1); PLATELET COUNT 180 10^3/uL (134-434); RDW 20.2 % (11.6-15.6); WHITE BLOOD COUNT 6.5 K/mm3 (4.0-10.0)
[2025-01-16 06:55] LABS: POTASSIUM 3.9 mmol/L (3.5-5.1)
[2025-01-16 06:58] LABS: CALCIUM 7.7 mg/dL (8.5-10.1)
[2025-01-16 06:59] LABS: ALBUMIN 1.3 g/dl (3.4-5.0)
[2025-01-16 07:02] LABS: CREATININE 0.2 mg/dL (0.55-1.3)
[2025-01-16 07:04] LABS: BILIRUBIN,TOTAL 0.2 mg/dL (0.2-1); TOT PROT 5.8 g/dl (6.4-8.2)
[2025-01-17] MEDS ORDERED: METOPROLOL TARTRATE 5 MG/5 ML VIAL IVPUSH PRN (01:57)
[2025-01-17] MEDS: MEROPENEM-0.9% SODIUM CHLORIDE 1 GM/50 ML BAG IVPB SCH (02:55)
[2025-01-17] MEDS: INSULIN (LEVEMIR) 100 UNITS/ML UNITS SQ SCH (06:06)
[2025-01-17] MEDS: INSULIN ASPART SLIDING SCALE (NOVOLOG) 1 VIAL SQ SCH (06:08)
[2025-01-17] MEDS: ARTIFICIAL TEARS OPHTHALMIC DROPS OU SCH (07:38)
[2025-01-17] MEDS ORDERED: METOPROLOL TARTRATE 50 MG TABLET (FP) GT SCH (10:00)
[2025-01-17 10:12] LABS: HEMATOCRIT 25.7 % (32.4-45.2); MCHC 31.2 g/dl (32.0-36.0); MEAN CELL VOLUME 83.4 fl (80-96); MEAN PLT VOLUME 8.9 fl (7.5-11.1); PLATELET COUNT 229 10^3/uL (134-434); RBC 3.08 M/mm3 (3.60-5.2); RDW 20.7 % (11.6-15.6)
[2025-01-17] MEDS: AMINO ACIDS/PROTEIN HYDROLYS 30 ML LIQUID.PKT GT SCH (11:01)
[2025-01-17] MEDS: ASCORBIC ACID 500 MG TABLET (FP) GT SCH (11:01)
[2025-01-17] MEDS: METOPROLOL TARTRATE 50 MG TABLET (FP) GT SCH (11:01)
[2025-01-17] MEDS: APIXABAN 5 MG TABLET PO SCH (11:01)
[2025-01-17] MEDS: BACITRACIN ZINC 15 GM TUBE TOPICAL OINTMENT TP SCH (11:02)
[2025-01-17] MEDS: NYSTATIN 100,000 UNIT/GM TOPICAL CREAM 15 GM TUBE TP SCH (11:03)
[2025-01-17] MEDS: ZINC OXIDE 20% TOPICAL OINTMENT 30 GM TUBE TP SCH (11:04)
[2025-01-17 11:20] LABS: CALCIUM 7.6 mg/dL (8.5-10.1)
[2025-01-17 11:21] LABS: ALBUMIN 1.3 g/dl (3.4-5.0); ANION GAP 3 mmol/L (4-13); CHLORIDE 109 mmol/L (98-107); CO2 32 mmol/L (21-32); GLUCOSE,RANDOM 120 mg/dL (74-106); MAGNESIUM 2.2 mg/dL (1.8-2.4); SODIUM 145 mmol/L (136-145)
[2025-01-17 11:24] LABS: CREATININE < 0.2 mg/dL (0.55-1.3); PHOSPHOROUS 2.3 mg/dL (2.5-4.9); SGOT/AST 81 U/L (15-37); SGPT/ALT 178 U/L (13-61)
[2025-01-17 11:26] LABS: BILIRUBIN,TOTAL 0.3 mg/dL (0.2-1); TOT PROT 5.9 g/dl (6.4-8.2)
[2025-01-17 11:28] LABS: ALK PHOS 301 U/L (45-117)
[2025-01-17] MEDS: NAPH,MB-DB/K PH,MBDB POWDER PACKET PO ONE (14:24)
[2025-01-17] MEDS: VANCOMYCIN/WATER FOR INJ (PEG) 750 MG/150 ML BAG IVPB SCH (18:19)
[2025-01-17] MEDS: LATANOPROST 0.005% OPHTH SOLN 2.5ML BOTTLE OD SCH (22:40)
[2025-01-18] MEDS: traMADol HCL 50 MG TABLET PEG PRN (08:35)
[2025-01-18 09:15] LABS: HEMATOCRIT 25.4 % (32.4-45.2); HEMOGLOBIN 7.8 GM/dL (10.7-15.3); MCHC 30.9 g/dl (32.0-36.0); MEAN CELL VOLUME 84.1 fl (80-96); MEAN PLT VOLUME 8.8 fl (7.5-11.1); PLATELET COUNT 253 10^3/uL (134-434); RBC 3.02 M/mm3 (3.60-5.2); RDW 20.1 % (11.6-15.6); WHITE BLOOD COUNT 8.4 K/mm3 (4.0-10.0)
[2025-01-18 09:41] LABS: ALBUMIN 1.3 g/dl (3.4-5.0); ANION GAP 2 mmol/L (4-13); BLOOD UREA NITROGEN 23.9 mg/dL (7-18); CALCIUM 7.6 mg/dL (8.5-10.1); CHLORIDE 110 mmol/L (98-107); CO2 31 mmol/L (21-32); GLUCOSE,RANDOM 108 mg/dL (74-106); POTASSIUM 4.7 mmol/L (3.5-5.1); SODIUM 143 mmol/L (136-145)
[2025-01-18 09:44] LABS: CREATININE < 0.2 mg/dL (0.55-1.3); PHOSPHOROUS 2.6 mg/dL (2.5-4.9); SGOT/AST 183 U/L (15-37); SGPT/ALT 249 U/L (13-61)
[2025-01-18 09:46] LABS: BILIRUBIN,TOTAL 0.3 mg/dL (0.2-1); TOT PROT 6.2 g/dl (6.4-8.2)
[2025-01-18 09:47] LABS: ALK PHOS 331 U/L (45-117)
[2025-01-18] MEDS: ACETAMINOPHEN 1000 MG/100 ML BAG IVPB ONE (12:17)
[2025-01-19 10:00] LABS: HEMATOCRIT 22.5 % (32.4-45.2); MCH 26.2 pg (25.7-33.7); MCHC 30.9 g/dl (32.0-36.0); MEAN CELL VOLUME 84.9 fl (80-96); MEAN PLT VOLUME 8.5 fl (7.5-11.1); PLATELET COUNT 254 10^3/uL (134-434); RBC 2.65 M/mm3 (3.60-5.2); WHITE BLOOD COUNT 6.8 K/mm3 (4.0-10.0)
[2025-01-19 10:33] LABS: POTASSIUM 5.2 mmol/L (3.5-5.1)
[2025-01-19 10:43] LABS: ALBUMIN 1.2 g/dl (3.4-5.0); CALCIUM 7.4 mg/dL (8.5-10.1); MAGNESIUM 2.3 mg/dL (1.8-2.4)
[2025-01-19 10:45] LABS: CREATININE 0.2 mg/dL (0.55-1.3)
[2025-01-19 10:46] LABS: BILIRUBIN,TOTAL 0.4 mg/dL (0.2-1); PHOSPHOROUS 2.7 mg/dL (2.5-4.9); TOT PROT 5.7 g/dl (6.4-8.2)
[2025-01-19] MEDS ORDERED: ACETAMINOPHEN INJECTION 100 ML ONE (16:56)
[2025-01-19] MEDS: ACETAMINOPHEN 1000 MG/100 ML BAG IVPB ONE (17:00)
[2025-01-19] MEDS: ACETAMINOPHEN 650 MG/20.3 ML ORAL SOLUTION (CUPS) GT ONE (18:51)
[2025-01-19] MEDS: METOPROLOL TARTRATE 50 MG TABLET (FP) GT SCH (22:48)
[2025-01-20] MEDS: COLLAGENASE CLOSTRIDIUM HIST. 30 GRAMS TUBE TP SCH ×2 (07:47→07:49)
[2025-01-20 09:48] LABS: HEMATOCRIT 25.3 % (32.4-45.2); HEMOGLOBIN 8.2 GM/dL (10.7-15.3); MCH 26.6 pg (25.7-33.7); MCHC 32.2 g/dl (32.0-36.0); MEAN CELL VOLUME 82.6 fl (80-96); MEAN PLT VOLUME 8.3 fl (7.5-11.1); PLATELET COUNT 240 10^3/uL (134-434); RBC 3.06 M/mm3 (3.60-5.2); WHITE BLOOD COUNT 7.1 K/mm3 (4.0-10.0)
[2025-01-20 10:29] LABS: POTASSIUM 4.6 mmol/L (3.5-5.1)
[2025-01-20 10:33] LABS: CALCIUM 7.6 mg/dL (8.5-10.1)
[2025-01-20 10:34] LABS: ALBUMIN 1.3 g/dl (3.4-5.0)
[2025-01-20 10:37] LABS: CREATININE 0.2 mg/dL (0.55-1.3)
[2025-01-20 10:39] LABS: BILIRUBIN,TOTAL 0.3 mg/dL (0.2-1); TOT PROT 5.9 g/dl (6.4-8.2)
[2025-01-20] MEDS: ACETAMINOPHEN 650 MG/20.3 ML ORAL SOLUTION (CUPS) GT PRN (16:53)
[2025-01-21 09:56] LABS: HEMATOCRIT 27.1 % (32.4-45.2); HEMOGLOBIN 8.6 GM/dL (10.7-15.3); MCH 26.2 pg (25.7-33.7); MCHC 31.9 g/dl (32.0-36.0); MEAN CELL VOLUME 82.2 fl (80-96); MEAN PLT VOLUME 8.1 fl (7.5-11.1); PLATELET COUNT 254 10^3/uL (134-434); RBC 3.29 M/mm3 (3.60-5.2); RDW 18.9 % (11.6-15.6); WHITE BLOOD COUNT 8.6 K/mm3 (4.0-10.0)
[2025-01-21 10:25] LABS: POTASSIUM 4.4 mmol/L (3.5-5.1)
[2025-01-21 10:29] LABS: ALBUMIN 1.3 g/dl (3.4-5.0); BLOOD UREA NITROGEN 25.2 mg/dL (7-18); CALCIUM 7.8 mg/dL (8.5-10.1); MAGNESIUM 2.3 mg/dL (1.8-2.4)
[2025-01-21 10:32] LABS: CREATININE 0.2 mg/dL (0.55-1.3); PHOSPHOROUS 2.5 mg/dL (2.5-4.9)
[2025-01-21 10:34] LABS: BILIRUBIN,TOTAL 0.4 mg/dL (0.2-1); TOT PROT 6.3 g/dl (6.4-8.2)
[2025-01-21] MEDS: PIPERACILLIN/TAZOB 3.375 GM 50 ML IVPB SCH (17:54)
[2025-01-21] MEDS: PIPERACILLIN/TAZOB 3.375 GM 3.375 GM in DEXTROSE 5%-WATER - 50 ML IVPB SCH (17:56)
[2025-01-22 08:51] LABS: HEMOGLOBIN 8.4 GM/dL (10.7-15.3); MCH 26.8 pg (25.7-33.7); MCHC 32.2 g/dl (32.0-36.0); MEAN CELL VOLUME 83.1 fl (80-96); MEAN PLT VOLUME 8.6 fl (7.5-11.1); PLATELET COUNT 255 10^3/uL (134-434); RBC 3.13 M/mm3 (3.60-5.2); RDW 19.2 % (11.6-15.6); WHITE BLOOD COUNT 9.3 K/mm3 (4.0-10.0)
[2025-01-22 09:06] LABS: POTASSIUM 4.5 mmol/L (3.5-5.1)
[2025-01-22 09:11] LABS: BLOOD UREA NITROGEN 24.4 mg/dL (7-18); CALCIUM 7.6 mg/dL (8.5-10.1)
[2025-01-22 09:12] LABS: MAGNESIUM 2.3 mg/dL (1.8-2.4)
[2025-01-22 09:14] LABS: CREATININE 0.2 mg/dL (0.55-1.3); PHOSPHOROUS 2.9 mg/dL (2.5-4.9)
[2025-01-22] MEDS: ACETAMINOPHEN 650 MG/20.3 ML ORAL SOLUTION (CUPS) GT PRN (17:20)
[2025-01-23 09:34] LABS: BASO % 0.6 % (0-2.0); EOS % 0.4 % (0-4.5); HEMATOCRIT 25.5 % (32.4-45.2); HEMOGLOBIN 8.2 GM/dL (10.7-15.3); LYMPH % 15.1 % (8-40); MCH 26.7 pg (25.7-33.7); MCHC 32.2 g/dl (32.0-36.0); MEAN PLT VOLUME 8.6 fl (7.5-11.1); MONO % 5.4 % (3.8-10.2); NEUT % 78.5 % (42.8-82.8); PLATELET COUNT 228 10^3/uL (134-434); RBC 3.07 M/mm3 (3.60-5.2); WHITE BLOOD COUNT 8.4 K/mm3 (4.0-10.0)
[2025-01-23 09:51] LABS: POTASSIUM 4.5 mmol/L (3.5-5.1)
[2025-01-23 10:03] LABS: ALBUMIN 1.3 g/dl (3.4-5.0); BLOOD UREA NITROGEN 23.1 mg/dL (7-18); CALCIUM 7.5 mg/dL (8.5-10.1); MAGNESIUM 2.3 mg/dL (1.8-2.4)
[2025-01-23 10:05] LABS: CREATININE 0.2 mg/dL (0.55-1.3)
[2025-01-23 10:07] LABS: PHOSPHOROUS 3.2 mg/dL (2.5-4.9)
[2025-01-23 10:08] LABS: BILIRUBIN,TOTAL 0.2 mg/dL (0.2-1)
[2025-01-24 09:19] LABS: HEMATOCRIT 27.8 % (32.4-45.2); HEMOGLOBIN 8.8 GM/dL (10.7-15.3); MCH 26.2 pg (25.7-33.7); MCHC 31.4 g/dl (32.0-36.0); MEAN CELL VOLUME 83.4 fl (80-96); MEAN PLT VOLUME 8.8 fl (7.5-11.1); PLATELET COUNT 251 10^3/uL (134-434); RBC 3.34 M/mm3 (3.60-5.2); RDW 19.2 % (11.6-15.6); WHITE BLOOD COUNT 9.6 K/mm3 (4.0-10.0)
[2025-01-24 09:50] LABS: POTASSIUM 4.3 mmol/L (3.5-5.1)
[2025-01-24 10:04] LABS: CREATININE 0.2 mg/dL (0.55-1.3)
[2025-01-24 10:05] LABS: ALBUMIN 1.4 g/dl (3.4-5.0); BLOOD UREA NITROGEN 24.7 mg/dL (7-18); PHOSPHOROUS 2.9 mg/dL (2.5-4.9)
[2025-01-24 10:07] LABS: BILIRUBIN,TOTAL 0.3 mg/dL (0.2-1)
[2025-01-24 10:08] LABS: CALCIUM 7.7 mg/dL (8.5-10.1); MAGNESIUM 2.2 mg/dL (1.8-2.4)
[2025-01-25] MEDS: IBUPROFEN 100 MG/5 ML UNIT DOSE CUPS PO ONE (09:12)
[2025-01-25] MEDS: IOHEXOL (OMNIPAQUE IV) 350 MG/ML - 100 ML BOTTLE GT ONE (13:41)
[2025-01-25] MEDS: SODIUM CHLORIDE 500 ML IV STA (19:15)
[2025-01-26] MEDS: INSULIN GLARGINE (LANTUS) 100 UNITS/ML UNITS SQ SCH (06:35)
[2025-01-26] MEDS: DEXTROSE 5%-LACTATED RINGERS 1,000 ML IV SCH (08:07)
[2025-01-26 09:22] LABS: HEMATOCRIT 24.5 % (32.4-45.2); HEMOGLOBIN 7.8 GM/dL (10.7-15.3); MCH 26.3 pg (25.7-33.7); MCHC 31.7 g/dl (32.0-36.0); MEAN CELL VOLUME 83.1 fl (80-96); MEAN PLT VOLUME 9.2 fl (7.5-11.1); PLATELET COUNT 225 10^3/uL (134-434); RBC 2.95 M/mm3 (3.60-5.2); RDW 18.8 % (11.6-15.6); WHITE BLOOD COUNT 11.2 K/mm3 (4.0-10.0)
[2025-01-26] MEDS: AMPICILLIN NA/SULBACTAM NA 3 GM in SODIUM CHLORIDE 100 ML IVPB SCH (09:36)
[2025-01-26 09:44] LABS: POTASSIUM 3.7 mmol/L (3.5-5.1)
[2025-01-26 10:02] LABS: CALCIUM 7.6 mg/dL (8.5-10.1)
[2025-01-26 10:03] LABS: ALBUMIN 1.4 g/dl (3.4-5.0); BLOOD UREA NITROGEN 40.7 mg/dL (7-18); MAGNESIUM 2.7 mg/dL (1.8-2.4)
[2025-01-26 10:06] LABS: CREATININE 0.3 mg/dL (0.55-1.3); PHOSPHOROUS 3.1 mg/dL (2.5-4.9)
[2025-01-26 10:07] LABS: BILIRUBIN,TOTAL 0.3 mg/dL (0.2-1); TOT PROT 5.9 g/dl (6.4-8.2)
[2025-01-26] MEDS: SODIUM CHLORIDE 1,000 ML IV SCH (14:54)
[2025-01-26] MEDS: CEFTRIAXONE 2 GM-D5W BAG 2 GM/50 ML BAG IVPB SCH (16:22)
[2025-01-27 08:54] LABS: HEMATOCRIT 23.3 % (32.4-45.2); HEMOGLOBIN 7.2 GM/dL (10.7-15.3); MCH 26.2 pg (25.7-33.7); MCHC 31.1 g/dl (32.0-36.0); MEAN CELL VOLUME 84.2 fl (80-96); MEAN PLT VOLUME 9.1 fl (7.5-11.1); PLATELET COUNT 221 10^3/uL (134-434); RBC 2.77 M/mm3 (3.60-5.2); RDW 19.1 % (11.6-15.6); WHITE BLOOD COUNT 9.2 K/mm3 (4.0-10.0)
[2025-01-27 09:15] LABS: POTASSIUM 3.4 mmol/L (3.5-5.1)
[2025-01-27 09:22] LABS: ALBUMIN 1.3 g/dl (3.4-5.0); BLOOD UREA NITROGEN 28.6 mg/dL (7-18); CALCIUM 7.4 mg/dL (8.5-10.1)
[2025-01-27 09:25] LABS: CREATININE 0.2 mg/dL (0.55-1.3)
[2025-01-27 09:27] LABS: BILIRUBIN,TOTAL 0.2 mg/dL (0.2-1); TOT PROT 5.7 g/dl (6.4-8.2)
[2025-01-27] MEDS: ACETAMINOPHEN 1000 MG/100 ML BAG IVPB ONE ×2 (11:22→17:00)
[2025-01-27] MEDS: ACETAMINOPHEN 650 MG/20.3 ML ORAL SOLUTION (CUPS) PEG ONE (14:04)
[2025-01-27] MEDS: POTASSIUM CHLORIDE ORAL LIQUID 20 MEQ/15 ML PO ONE (17:08)
[2025-01-27 18:04] LABS: EPI CELLS >36 /uL (0-25.1); HYALINE CASTS 2 /uL (0-3.1); PH,URINE 5.5 (5.0-8.0); URINE APPEARANCE CLOUDY; URINE BACTERIA 16 /uL (0-1359); URINE BILIRUBIN NEGATIVE (NEGATIVE); URINE COLOR YELLOW; URINE GLUCOSE (UA) NEGATIVE (NEGATIVE); URINE KETONE NEGATIVE (NEGATIVE); URINE LEUK ESTERASE 1+ (NEGATIVE); URINE NITRITE NEGATIVE (NEGATIVE); URINE PROTEIN 2+ (NEGATIVE); URINE UROBILINOGEN 0.2 mg/dL (0.2-1.0); URINE WBC 416 /uL (0-25.8)
[2025-01-27 19:24] LABS: URINE RBC 822.9 /uL (0-23.9)
[2025-01-28 10:01] VITALS: TEMP 97.9
[2025-01-28 10:08] LABS: HEMATOCRIT 28.3 % (32.4-45.2); HEMOGLOBIN 9.3 GM/dL (10.7-15.3); MCH 27.6 pg (25.7-33.7); MEAN CELL VOLUME 83.5 fl (80-96); MEAN PLT VOLUME 8.9 fl (7.5-11.1); PLATELET COUNT 206 10^3/uL (134-434); RBC 3.39 M/mm3 (3.60-5.2); RDW 16.6 % (11.6-15.6); WHITE BLOOD COUNT 7.2 K/mm3 (4.0-10.0)
[2025-01-28 10:16] VITALS: RESP 20
[2025-01-28 10:26] LABS: POTASSIUM 4.1 mmol/L (3.5-5.1)
[2025-01-28 10:34] LABS: ALBUMIN 1.4 g/dl (3.4-5.0); BLOOD UREA NITROGEN 23.4 mg/dL (7-18); CALCIUM 7.6 mg/dL (8.5-10.1); MAGNESIUM 2.3 mg/dL (1.8-2.4)
[2025-01-28 10:38] LABS: CREATININE 0.2 mg/dL (0.55-1.3); PHOSPHOROUS 1.8 mg/dL (2.5-4.9)
[2025-01-28 10:39] LABS: BILIRUBIN,TOTAL 0.3 mg/dL (0.2-1); TOT PROT 5.9 g/dl (6.4-8.2)
[2025-01-28] MEDS: ACETAMINOPHEN 650 MG/20.3 ML ORAL SOLUTION (CUPS) GT PRN (12:51)
[2025-01-28] MEDS: NAPH,MB-DB/K PH,MBDB POWDER PACKET GT ONE (13:50)
[2025-01-28 15:12] VITALS: BP 132/74; PULSE 105
== END 2025-01-28 15:17 | DRG 720 ==
LOC: JER 17:17 → JERBED 23:34 → J2W 01-04 04:42 → J5S 01-08 17:12 → J2W 01-13 01:52 → J5S 01-17 01:58
PROVIDERS: ADMIT Student in an Organized Health Care Education/Training Program; ATTEND Internal Medicine
PROC: 5A1955Z Respiratory Ventilation, Greater than 96 Consecutive Hours (ICD-10-PCS; principal; 2025-01-03)
PROC: 30233N1 Transfusion of Nonautologous Red Blood Cells into Peripheral Vein, Percutaneous Approach (ICD-10-PCS; 2025-01-04)
DX: A41.9 Sepsis, unspecified organism (principal); G06.1 Intraspinal abscess and granuloma; J96.21 Acute and chronic respiratory failure with hypoxia; J18.9 Pneumonia, unspecified organism; Z99.11 Dependence on respirator [ventilator] status; L89.154 Pressure ulcer of sacral region, stage 4; L89.224 Pressure ulcer of left hip, stage 4; J96.10 Chronic respiratory failure, unspecified whether with hypoxia or hypercapnia; K56.609 Unspecified intestinal obstruction, unspecified as to partial versus complete obstruction; R64 Cachexia; E11.65 Type 2 diabetes mellitus with hyperglycemia; R53.2 Functional quadriplegia; I48.91 Unspecified atrial fibrillation; L89.890 Pressure ulcer of other site, unstageable; Z68.23 Body mass index [BMI] 23.0-23.9, adult; N39.0 Urinary tract infection, site not specified; R31.9 Hematuria, unspecified; E11.9 Type 2 diabetes mellitus without complications; M46.28 Osteomyelitis of vertebra, sacral and sacrococcygeal region; D64.9 Anemia, unspecified; E78.5 Hyperlipidemia, unspecified; L30.4 Erythema intertrigo; R74.01 Elevation of levels of liver transaminase levels; E87.0 Hyperosmolality and hypernatremia; L89.109 Pressure ulcer of unspecified part of back, unspecified stage; L89.509 Pressure ulcer of unspecified ankle, unspecified stage
CPT/HCPCS: 0241U-QW; 36415; 36430; 71045-TC-FY; 71275-TC; 74018-TC-FY; 74177-TC; 76705-TC; 80048; 80053; 81003; 82272; 82330; 82550; 82803; 82962; 82977; 83605; 83735; 84100; 84484; 85025; 85027; 85610; 85651; 85730; 86140; 86704; 86708; 86803; 86850; 86900; 86901; 86922; 87040; 87070; 87081; 87086; 87186; 87205; 87340; 87517; 93005; 93010; 94002; 99285-25; G0480; J0131; J1644; P9038; P9058; Q9967

== ENCOUNTER 2025-02-03 12:21 | Inpatient (IN) | payer OTHER ==
[2025-02-03 13:36] VITALS: BMI 29.7
[2025-02-03 15:17] LABS: BASO % 0.3 % (0-2.0); EOS % 0.2 % (0-4.5); HEMATOCRIT 26.5 % (32.4-45.2); HEMOGLOBIN 8.4 GM/dL (10.7-15.3); LYMPH % 14.6 % (8-40); MCH 27.2 pg (25.7-33.7); MCHC 31.8 g/dl (32.0-36.0); MEAN CELL VOLUME 85.6 fl (80-96); MEAN PLT VOLUME 8.1 fl (7.5-11.1); MONO % 8.4 % (3.8-10.2); NEUT % 76.5 % (42.8-82.8); PLATELET COUNT 264 10^3/uL (134-434); RDW 18.1 % (11.6-15.6)
[2025-02-03 15:24] LABS: INR 1.56 (0.83-1.09)
[2025-02-03 15:26] LABS: ACTIVATED PTT 31.9 SECONDS (25.2-36.5)
[2025-02-03 15:37] LABS: CHLORIDE 107 mmol/L (98-107); POTASSIUM 3.4 mmol/L (3.5-5.1); SODIUM 142 mmol/L (136-145)
[2025-02-03 15:39] LABS: ALBUMIN 1.3 g/dl (3.4-5.0); ANION GAP 6 mmol/L (4-13); CALCIUM 7.6 mg/dL (8.5-10.1); CO2 29 mmol/L (21-32); GLUCOSE,RANDOM 140 mg/dL (74-106)
[2025-02-03 15:41] LABS: BLOOD UREA NITROGEN 22.6 mg/dL (7-18)
[2025-02-03 15:43] LABS: CREATININE < 0.2 mg/dL (0.55-1.3); SGOT/AST 24 U/L (15-37); SGPT/ALT 40 U/L (13-61)
[2025-02-03 15:44] LABS: BILIRUBIN,TOTAL 0.3 mg/dL (0.2-1); TOT PROT 5.8 g/dl (6.4-8.2)
[2025-02-03 15:45] LABS: ALK PHOS 202 U/L (45-117)
[2025-02-03] MEDS ORDERED: VANCOMYCIN HCL 1,500 MG in DEXTROSE 5%-WATER - 500 ML IVPB ONE (21:07)
[2025-02-03] MEDS ORDERED: PIPERACILLIN/TAZOB 3.375 GM 3.375 GM/50 ML BAG IVPB ONE (21:55)
[2025-02-03] MEDS: PIPERACILLIN/TAZOB 3.375 GM 3.375 GM in DEXTROSE 5%-WATER - 50 ML IVPB ONE (22:06)
[2025-02-03] MEDS: VANCOMYCIN PREMIX 1.5 GM 1,500 MG/300 ML BAG IVPB ONE (22:25)
[2025-02-03] MEDS: INSULIN ASPART SLIDING SCALE (NOVOLOG) 1 VIAL SQ SCH (23:02)
[2025-02-03] MEDS ORDERED: MORPHINE SULFATE 2 MG/ML SYRINGE IVPUSH PRN (23:02)
[2025-02-03] MEDS ORDERED: KETOROLAC TROMETHAMINE 15 MG/ML VIAL IVPUSH PRN (23:04)
[2025-02-04] MEDS: KCL 10 MEQ IVPB 10 MEQ/100 ML INFUS.BAG IVPB SCH (01:00)
[2025-02-04] MEDS: LACTATED RINGERS SOLUTION 1,000 ML/1,000 ML INFUS.BAG IV SCH (05:27)
[2025-02-04] MEDS: INSULIN ASPART SLIDING SCALE (NOVOLOG) 1 VIAL SQ SCH (05:48)
[2025-02-04 08:36] LABS: BASO % 0.4 % (0-2.0); EOS % 0.1 % (0-4.5); HEMATOCRIT 23.7 % (32.4-45.2); HEMOGLOBIN 7.5 GM/dL (10.7-15.3); LYMPH % 14.9 % (8-40); MCH 27.2 pg (25.7-33.7); MCHC 31.8 g/dl (32.0-36.0); MEAN CELL VOLUME 85.5 fl (80-96); MEAN PLT VOLUME 8.2 fl (7.5-11.1); MONO % 7.6 % (3.8-10.2); PLATELET COUNT 306 10^3/uL (134-434); RBC 2.77 M/mm3 (3.60-5.2); RDW 17.9 % (11.6-15.6); WHITE BLOOD COUNT 7.6 K/mm3 (4.0-10.0)
[2025-02-04 08:50] LABS: CHLORIDE 108 mmol/L (98-107); POTASSIUM 3.3 mmol/L (3.5-5.1); SODIUM 142 mmol/L (136-145)
[2025-02-04 09:00] LABS: CALCIUM 7.7 mg/dL (8.5-10.1)
[2025-02-04 09:01] LABS: ALBUMIN 1.3 g/dl (3.4-5.0); ANION GAP 7 mmol/L (4-13); BLOOD UREA NITROGEN 22.9 mg/dL (7-18); CO2 27 mmol/L (21-32); GLUCOSE,RANDOM 114 mg/dL (74-106)
[2025-02-04 09:03] LABS: CREATININE < 0.2 mg/dL (0.55-1.3); PHOSPHOROUS 2.4 mg/dL (2.5-4.9); SGOT/AST 22 U/L (15-37); SGPT/ALT 34 U/L (13-61)
[2025-02-04 09:04] LABS: BILIRUBIN,TOTAL 0.4 mg/dL (0.2-1)
[2025-02-04 09:06] LABS: TOT PROT 5.5 g/dl (6.4-8.2)
[2025-02-04] MEDS: ENOXAPARIN NA (PORCINE) 40 MG/0.4 ML DISP.SYRIN SQ SCH (09:08)
[2025-02-04 09:09] LABS: ALK PHOS 185 U/L (45-117)
[2025-02-04] MEDS: ARTIFICIAL TEARS OPHTHALMIC DROPS OU SCH (09:43)
[2025-02-04] MEDS: PANTOPRAZOLE SODIUM 40 MG VIAL IVPUSH SCH (09:43)
[2025-02-04] MEDS ORDERED: PIPERACILLIN/TAZOB 3.375 GM 50 ML IVPB SCH (10:30)
[2025-02-04] MEDS: PIPERACILLIN/TAZOB 3.375 GM 3.375 GM/50 ML BAG IVPB SCH (11:20)
[2025-02-04] MEDS: NYSTATIN 100,000 UNIT/GM TOPICAL CREAM 15 GM TUBE TP SCH (11:21)
[2025-02-04] MEDS ORDERED: KCL 10 MEQ IVPB 10 MEQ/100 ML INFUS.BAG IVPB SCH (11:45)
[2025-02-04] MEDS: METOPROLOL TARTRATE 50 MG TABLET (FP) GT SCH (12:18)
[2025-02-04] MEDS: POTASSIUM PHOSPHATE 15 MM in SODIUM CHLORIDE 250 ML IVPB ONE (13:21)
[2025-02-04] MEDS: FUROSEMIDE 40 MG/4 ML INJECTABLE VIAL IVPUSH ONE (13:21)
[2025-02-04] MEDS: COLLAGENASE CLOSTRIDIUM HIST. 30 GRAMS TUBE TP SCH (14:00)
[2025-02-04] MEDS ORDERED: FUROSEMIDE 40 MG/4 ML INJECTABLE VIAL IVPUSH SCH (14:00)
[2025-02-04] MEDS: PIPERACILLIN/TAZOB 3.375 GM 50 ML IVPB SCH ×2 (15:50→21:20)
[2025-02-04] MEDS: PIPERACILLIN/TAZOB 3.375 GM 3.375 GM in DEXTROSE 5%-WATER - 50 ML IVPB SCH (16:06)
[2025-02-04] MEDS: ATORVASTATIN CA 40 MG TABLET (FP) GT SCH (21:20)
[2025-02-04] MEDS: ZINC OXIDE 20% TOPICAL OINTMENT 30 GM TUBE TP SCH (21:21)
[2025-02-04] MEDS: LATANOPROST 0.005% OPHTH SOLN 2.5ML BOTTLE OD SCH (21:22)
[2025-02-04] MEDS ORDERED: APIXABAN 5 MG TABLET GT SCH (22:00)
[2025-02-05 09:45] LABS: HEMATOCRIT 22.6 % (32.4-45.2); HEMOGLOBIN 7.4 GM/dL (10.7-15.3); MCH 27.9 pg (25.7-33.7); MCHC 32.9 g/dl (32.0-36.0); MEAN CELL VOLUME 84.9 fl (80-96); MEAN PLT VOLUME 7.5 fl (7.5-11.1); PLATELET COUNT 299 10^3/uL (134-434); RBC 2.67 M/mm3 (3.60-5.2); RDW 18.7 % (11.6-15.6); WHITE BLOOD COUNT 7.4 K/mm3 (4.0-10.0)
[2025-02-05 10:03] LABS: ALBUMIN 1.3 g/dl (3.4-5.0); BLOOD UREA NITROGEN 23.8 mg/dL (7-18); CALCIUM 7.5 mg/dL (8.5-10.1); MAGNESIUM 2.1 mg/dL (1.8-2.4)
[2025-02-05 10:06] LABS: CREATININE 0.2 mg/dL (0.55-1.3)
[2025-02-05 10:08] LABS: BILIRUBIN,TOTAL 0.2 mg/dL (0.2-1); TOT PROT 5.6 g/dl (6.4-8.2)
[2025-02-05] MEDS: FERROUS SO4 300 MG/5 ML ORAL SOLN UNIT DOSE CUPS GT SCH (11:22)
[2025-02-05] MEDS: POTASSIUM CHLORIDE ORAL LIQUID 20 MEQ/15 ML GT ONE (12:44)
[2025-02-05] MEDS: FUROSEMIDE 40 MG/4 ML INJECTABLE VIAL IVPUSH ONE (14:03)
[2025-02-05] MEDS ORDERED: AMINO ACIDS 4.25%/D5W 1,000 ML IV SCH (15:30)
[2025-02-05] MEDS: AMINO ACIDS 4.25%/D5W 1,000 ML IV SCH (17:11)
[2025-02-05] MEDS: HEPARIN NA (PORCINE) 5,000 UNITS/ML 1ML VIAL SQ SCH (21:00)
[2025-02-06 11:10] LABS: HEMOGLOBIN 7.5 GM/dL (10.7-15.3); MCH 27.1 pg (25.7-33.7); MCHC 31.5 g/dl (32.0-36.0); MEAN CELL VOLUME 86.3 fl (80-96); MEAN PLT VOLUME 7.3 fl (7.5-11.1); PLATELET COUNT 331 10^3/uL (134-434); RBC 2.78 M/mm3 (3.60-5.2); RDW 19.4 % (11.6-15.6); WHITE BLOOD COUNT 6.5 K/mm3 (4.0-10.0)
[2025-02-06 11:32] LABS: CALCIUM 7.8 mg/dL (8.5-10.1)
[2025-02-06 11:33] LABS: BLOOD UREA NITROGEN 18.8 mg/dL (7-18); MAGNESIUM 1.9 mg/dL (1.8-2.4)
[2025-02-06 11:36] LABS: CREATININE 0.2 mg/dL (0.55-1.3)
[2025-02-06] MEDS: POTASSIUM CHLORIDE 20 MEQ in AMINO ACIDS 4.25%/D5W 1,000 ML IV SCH (14:12)
[2025-02-06] MEDS: POTASSIUM PHOSPHATE 30 MM in SODIUM CHLORIDE 500 ML IVPB ONE (14:13)
[2025-02-06] MEDS: ERTAPENEM SODIUM 1 GM in SODIUM CHLORIDE 50 ML IVPB SCH (21:14)
[2025-02-06] MEDS: METOPROLOL TARTRATE 50 MG TABLET (FP) GT SCH (21:20)
[2025-02-07 09:47] LABS: BASO % 0.3 % (0-2.0); EOS % 0.1 % (0-4.5); HEMATOCRIT 23.9 % (32.4-45.2); HEMOGLOBIN 7.4 GM/dL (10.7-15.3); LYMPH % 19.1 % (8-40); MCH 26.7 pg (25.7-33.7); MEAN CELL VOLUME 86.2 fl (80-96); MEAN PLT VOLUME 7.1 fl (7.5-11.1); MONO % 5.5 % (3.8-10.2); PLATELET COUNT 330 10^3/uL (134-434); RBC 2.78 M/mm3 (3.60-5.2); WHITE BLOOD COUNT 6.6 K/mm3 (4.0-10.0)
[2025-02-07 10:16] LABS: CHLORIDE 108 mmol/L (98-107); POTASSIUM 3.6 mmol/L (3.5-5.1); SODIUM 142 mmol/L (136-145)
[2025-02-07 10:27] LABS: CHOLESTEROL 76 mg/dL (50-200)
[2025-02-07 10:28] LABS: HDL CHOLESTEROL 29 mg/dL (40-60); LDL CHOLESTEROL (ONLY SJRH) 43 mg/dL (5-100)
[2025-02-07 10:30] LABS: BLOOD UREA NITROGEN 16.8 mg/dL (7-18)
[2025-02-07 10:31] LABS: ALBUMIN 1.3 g/dl (3.4-5.0); ANION GAP 5 mmol/L (4-13); CALCIUM 7.5 mg/dL (8.5-10.1); CO2 29 mmol/L (21-32); GLUCOSE,RANDOM 184 mg/dL (74-106); MAGNESIUM 1.8 mg/dL (1.8-2.4)
[2025-02-07 10:32] LABS: BILIRUBIN,TOTAL 0.3 mg/dL (0.2-1)
[2025-02-07 10:34] LABS: SGOT/AST 12 U/L (15-37); SGPT/ALT 22 U/L (13-61)
[2025-02-07 10:35] LABS: CREATININE < 0.2 mg/dL (0.55-1.3); PHOSPHOROUS 2.1 mg/dL (2.5-4.9)
[2025-02-07 10:36] LABS: TOT PROT 5.6 g/dl (6.4-8.2)
[2025-02-07 10:37] LABS: ALK PHOS 159 U/L (45-117)
[2025-02-07] MEDS: POTASSIUM PHOSPHATE 30 MM in SODIUM CHLORIDE 500 ML IVPB ONE (16:28)
[2025-02-07] MEDS: METOPROLOL TARTRATE 5 MG/5 ML VIAL IVPB SCH (21:22)
[2025-02-07] MEDS: HEPARIN NA (PORCINE) 5,000 UNITS/ML 1ML VIAL SQ SCH (21:23)
[2025-02-07] MEDS: FAT EMULSION/OLIVE/SOY/PHOSPHO 250 ML IV SCH (21:39)
[2025-02-07] MEDS ORDERED: FAT EMULSIONS 20% 250 ML PREMIX INFUS.BAG IV SCH (22:00)
[2025-02-08 09:22] LABS: BASO % 0.4 % (0-2.0); EOS % 0.4 % (0-4.5); HEMATOCRIT 24.3 % (32.4-45.2); HEMOGLOBIN 7.8 GM/dL (10.7-15.3); LYMPH % 18.3 % (8-40); MCH 27.5 pg (25.7-33.7); MCHC 32.2 g/dl (32.0-36.0); MEAN CELL VOLUME 85.3 fl (80-96); MEAN PLT VOLUME 7.4 fl (7.5-11.1); MONO % 5.7 % (3.8-10.2); NEUT % 75.2 % (42.8-82.8); PLATELET COUNT 361 10^3/uL (134-434); RBC 2.85 M/mm3 (3.60-5.2); RDW 19.3 % (11.6-15.6); WHITE BLOOD COUNT 6.9 K/mm3 (4.0-10.0)
[2025-02-08 09:48] LABS: CHLORIDE 108 mmol/L (98-107); POTASSIUM 3.8 mmol/L (3.5-5.1); SODIUM 143 mmol/L (136-145)
[2025-02-08 09:53] LABS: ALBUMIN 1.4 g/dl (3.4-5.0); ANION GAP 7 mmol/L (4-13); BLOOD UREA NITROGEN 12.5 mg/dL (7-18); CALCIUM 7.4 mg/dL (8.5-10.1); CO2 28 mmol/L (21-32); GLUCOSE,RANDOM 115 mg/dL (74-106); MAGNESIUM 1.6 mg/dL (1.8-2.4)
[2025-02-08 09:56] LABS: PHOSPHOROUS 2.1 mg/dL (2.5-4.9); SGOT/AST 11 U/L (15-37); SGPT/ALT 18 U/L (13-61)
[2025-02-08 09:58] LABS: BILIRUBIN,TOTAL 0.3 mg/dL (0.2-1); TOT PROT 5.9 g/dl (6.4-8.2)
[2025-02-08 09:59] LABS: ALK PHOS 154 U/L (45-117)
[2025-02-08 10:21] LABS: CREATININE < 0.2 mg/dL (0.55-1.3)
[2025-02-08] MEDS ORDERED: POTASSIUM PHOSPHATE 30 MM in SODIUM CHLORIDE 500 ML IVPB ONE (14:30)
[2025-02-08] MEDS: HEPARIN NA (PORCINE) 5,000 UNITS/ML 1ML VIAL SQ SCH (15:42)
[2025-02-08] MEDS: SODIUM PHOSPHATE - 15 MM in DEXTROSE 5%-WATER - 250 ML IVPB ONE (16:00)
[2025-02-08] MEDS: MAGNESIUM 2GM/50ML STERILE WATER IVPB IVPB ONE (16:00)
[2025-02-08] MEDS: MAGNESIUM SULF 50% (8.12 MEQ/2 ML-1 GM VIAL) IVPB ONE (17:25)
[2025-02-08] MEDS: POTASSIUM PHOSPHATE 30 MM in SODIUM CHLORIDE 500 ML IVPB ONE (18:46)
[2025-02-09 09:14] LABS: ABSOLUTE IMMATURE GRANULOCYTES 0.06 x10^3/uL (0.0-0.031); BASOPHILS # 0.02 x10^3/uL (0.01-0.08); EOSINOPHIL % 0.3 % (0.7-5.8); EOSINOPHILS # 0.02 x10^3/uL (0.04-0.36); HEMATOCRIT 24.9 % (34.1-44.9); HEMOGLOBIN 7.5 g/dL (11.2-15.7); MCHC 30.1 g/dl (32.2-35.5); MEAN CELL VOLUME 91.5 fl (79.4-94.8); MEAN PLT VOLUME 9.5 fl (9.4-12.3); MONOCYTE % 5.3 % (4.7-12.5); PLATELET COUNT # 336 x10^3/uL (182-369); RDW 19.6 % (12.4-16.4)
[2025-02-09 09:47] LABS: CHLORIDE 109 mmol/L (98-107); POTASSIUM 4.1 mmol/L (3.5-5.1); SODIUM 143 mmol/L (136-145)
[2025-02-09 10:03] LABS: ALBUMIN 1.4 g/dl (3.4-5.0); ANION GAP 6 mmol/L (4-13); BLOOD UREA NITROGEN 8.7 mg/dL (7-18); CALCIUM 7.4 mg/dL (8.5-10.1); CO2 27 mmol/L (21-32); GLUCOSE,RANDOM 96 mg/dL (74-106); MAGNESIUM 2.1 mg/dL (1.8-2.4)
[2025-02-09 10:05] LABS: SGOT/AST 11 U/L (15-37); SGPT/ALT 18 U/L (13-61)
[2025-02-09 10:06] LABS: PHOSPHOROUS 2.7 mg/dL (2.5-4.9)
[2025-02-09 10:07] LABS: BILIRUBIN,TOTAL 0.2 mg/dL (0.2-1); TOT PROT 5.6 g/dl (6.4-8.2)
[2025-02-09 10:08] LABS: ALK PHOS 147 U/L (45-117)
[2025-02-09 10:43] LABS: CREATININE < 0.2 mg/dL (0.55-1.3)
[2025-02-09] MEDS ORDERED: FAT EMULSION/OLIVE/SOY (CLINOLIPID) 250 ML EMULSION IV SCH (22:00)
[2025-02-10] MEDS: AMINO ACIDS 4.25%/D5W 1,000 ML IV SCH (00:11)
[2025-02-10] MEDS: FAT EMULSION/OLIVE/SOY/PHOSPHO 250 ML IV SCH (00:15)
[2025-02-10 08:45] LABS: ABSOLUTE IMMATURE GRANULOCYTES 0.05 x10^3/uL (0.0-0.031); BASOPHILS # 0.03 x10^3/uL (0.01-0.08); EOSINOPHIL % 0.1 % (0.7-5.8); EOSINOPHILS # 0.01 x10^3/uL (0.04-0.36); HEMATOCRIT 25.6 % (34.1-44.9); HEMOGLOBIN 7.7 g/dL (11.2-15.7); MCHC 30.1 g/dl (32.2-35.5); MEAN CELL VOLUME 91.8 fl (79.4-94.8); MEAN PLT VOLUME 9.1 fl (9.4-12.3); MONOCYTE # 0.51 x10^3/uL (0.24-0.86); MONOCYTE % 5.7 % (4.7-12.5); PLATELET COUNT # 331 x10^3/uL (182-369); RDW 20.2 % (12.4-16.4)
[2025-02-10 09:07] LABS: CHLORIDE 107 mmol/L (98-107); POTASSIUM 3.7 mmol/L (3.5-5.1); SODIUM 140 mmol/L (136-145)
[2025-02-10 09:15] LABS: ANION GAP 5 mmol/L (4-13); CO2 28 mmol/L (21-32)
[2025-02-10 09:16] LABS: BLOOD UREA NITROGEN 10.5 mg/dL (7-18); CALCIUM 7.8 mg/dL (8.5-10.1)
[2025-02-10 09:17] LABS: GLUCOSE,RANDOM 129 mg/dL (74-106); MAGNESIUM 1.9 mg/dL (1.8-2.4)
[2025-02-10 09:20] LABS: PHOSPHOROUS 2.2 mg/dL (2.5-4.9)
[2025-02-10 10:18] LABS: CREATININE < 0.2 mg/dL (0.55-1.3)
[2025-02-10] MEDS: ACETAMINOPHEN 1000 MG/100 ML BAG IVPB PRN (13:12)
[2025-02-10] MEDS: POTASSIUM CHLORIDE 10 MEQ in AMINO ACIDS 4.25%/D5W 1,000 ML IV SCH (21:25)
[2025-02-10] MEDS: POTASSIUM PHOSPHATE 30 MM in SODIUM CHLORIDE 500 ML IVPB ONE (23:14)
[2025-02-11 09:48] LABS: ABSOLUTE IMMATURE GRANULOCYTES 0.05 x10^3/uL (0.0-0.031); BASOPHILS # 0.02 x10^3/uL (0.01-0.08); EOSINOPHIL % 0.2 % (0.7-5.8); EOSINOPHILS # 0.02 x10^3/uL (0.04-0.36); HEMATOCRIT 26.4 % (34.1-44.9); HEMOGLOBIN 7.9 g/dL (11.2-15.7); MCHC 29.9 g/dl (32.2-35.5); MEAN CELL VOLUME 92.6 fl (79.4-94.8); MEAN PLT VOLUME 9.3 fl (9.4-12.3); MONOCYTE # 0.47 x10^3/uL (0.24-0.86); MONOCYTE % 5.8 % (4.7-12.5); PLATELET COUNT # 301 x10^3/uL (182-369); RDW 20.9 % (12.4-16.4)
[2025-02-11 10:12] LABS: CHLORIDE 105 mmol/L (98-107); POTASSIUM 4.1 mmol/L (3.5-5.1); SODIUM 138 mmol/L (136-145)
[2025-02-11 10:25] LABS: ALBUMIN 1.3 g/dl (3.4-5.0); ANION GAP 5 mmol/L (4-13); BLOOD UREA NITROGEN 11.5 mg/dL (7-18); CALCIUM 7.3 mg/dL (8.5-10.1); CO2 27 mmol/L (21-32); MAGNESIUM 1.7 mg/dL (1.8-2.4)
[2025-02-11 10:26] LABS: GLUCOSE,RANDOM 168 mg/dL (74-106)
[2025-02-11 10:28] LABS: CREATININE < 0.2 mg/dL (0.55-1.3); SGOT/AST 9 U/L (15-37); SGPT/ALT 11 U/L (13-61)
[2025-02-11 10:29] LABS: PHOSPHOROUS 2.9 mg/dL (2.5-4.9)
[2025-02-11 10:30] LABS: BILIRUBIN,TOTAL 0.2 mg/dL (0.2-1); TOT PROT 5.6 g/dl (6.4-8.2)
[2025-02-11 10:31] LABS: ALK PHOS 119 U/L (45-117)
[2025-02-11] MEDS: MAGNESIUM 2GM/50ML STERILE WATER IVPB IVPB ONE (16:05)
[2025-02-12 08:40] LABS: ABSOLUTE IMMATURE GRANULOCYTES 0.07 x10^3/uL (0.0-0.031); BASOPHILS # 0.02 x10^3/uL (0.01-0.08); EOSINOPHIL % 0.1 % (0.7-5.8); EOSINOPHILS # 0.01 x10^3/uL (0.04-0.36); HEMATOCRIT 24.6 % (34.1-44.9); HEMOGLOBIN 8.2 g/dL (11.2-15.7); MCHC 33.3 g/dl (32.2-35.5); MEAN CELL VOLUME 91.1 fl (79.4-94.8); MEAN PLT VOLUME 9.3 fl (9.4-12.3); MONOCYTE # 0.42 x10^3/uL (0.24-0.86); MONOCYTE % 4.6 % (4.7-12.5); PLATELET COUNT # 302 x10^3/uL (182-369); RDW 20.8 % (12.4-16.4)
[2025-02-12 09:10] LABS: CHLORIDE 104 mmol/L (98-107); POTASSIUM 3.6 mmol/L (3.5-5.1); SODIUM 134 mmol/L (136-145)
[2025-02-12 09:21] LABS: ALBUMIN 1.3 g/dl (3.4-5.0)
[2025-02-12 09:22] LABS: ANION GAP 4 mmol/L (4-13); CO2 26 mmol/L (21-32); GLUCOSE,RANDOM 194 mg/dL (74-106); MAGNESIUM 1.9 mg/dL (1.8-2.4)
[2025-02-12 09:24] LABS: CHOLESTEROL 87 mg/dL (50-200)
[2025-02-12 09:25] LABS: BILIRUBIN,TOTAL 0.4 mg/dL (0.2-1); CREATININE < 0.2 mg/dL (0.55-1.3); LDL CHOLESTEROL (ONLY SJRH) 41 mg/dL (5-100); PHOSPHOROUS 1.9 mg/dL (2.5-4.9)
[2025-02-12 09:26] LABS: ALK PHOS 116 U/L (45-117); TOT PROT 5.4 g/dl (6.4-8.2)
[2025-02-12 09:27] LABS: HDL CHOLESTEROL 27 mg/dL (40-60)
[2025-02-12 10:43] LABS: SGOT/AST 10 U/L (15-37); SGPT/ALT 13 U/L (13-61)
[2025-02-12] MEDS: POTASSIUM PHOSPHATE 15 MM in SODIUM CHLORIDE 250 ML IVPB ONE (12:14)
[2025-02-13 09:25] LABS: CHLORIDE 104 mmol/L (98-107); POTASSIUM 4.2 mmol/L (3.5-5.1); SODIUM 134 mmol/L (136-145)
[2025-02-13 09:45] LABS: GLUCOSE,RANDOM 261 mg/dL (74-106)
[2025-02-13 09:46] LABS: BLOOD UREA NITROGEN 15.8 mg/dL (7-18)
[2025-02-13 09:47] LABS: ANION GAP 6 mmol/L (4-13); CO2 24 mmol/L (21-32)
[2025-02-13 09:48] LABS: MAGNESIUM 1.7 mg/dL (1.8-2.4)
[2025-02-13 09:49] LABS: CREATININE 0.2 mg/dL (0.55-1.3); PHOSPHOROUS 1.6 mg/dL (2.5-4.9)
[2025-02-13 09:52] LABS: ABSOLUTE IMMATURE GRANULOCYTES 0.05 x10^3/uL (0.0-0.031); BASOPHILS # 0.03 x10^3/uL (0.01-0.08); EOSINOPHIL % 0.2 % (0.7-5.8); EOSINOPHILS # 0.02 x10^3/uL (0.04-0.36); HEMATOCRIT 25.4 % (34.1-44.9); HEMOGLOBIN 8.2 g/dL (11.2-15.7); MCHC 32.3 g/dl (32.2-35.5); MEAN CELL VOLUME 91.7 fl (79.4-94.8); MEAN PLT VOLUME 9.9 fl (9.4-12.3); MONOCYTE # 0.57 x10^3/uL (0.24-0.86); MONOCYTE % 6.2 % (4.7-12.5); PLATELET COUNT # 278 x10^3/uL (182-369); RDW 21.1 % (12.4-16.4)
[2025-02-13 09:59] LABS: CALCIUM 6.8 mg/dL (8.5-10.1)
[2025-02-13] MEDS: GABAPENTIN 250 MG/5 ML ORAL SOLUTION, 470 ML BOTTLE GT SCH (10:13)
[2025-02-13] MEDS: ASCORBIC ACID 500 MG/5 ML UNIT DOSE CUP GT SCH (10:13)
[2025-02-13] MEDS: METOPROLOL TARTRATE 50 MG TABLET (FP) GT SCH (10:14)
[2025-02-13] MEDS: FAMOTIDINE 20 MG/2.5 ML ORAL LIQUID PEG SCH (10:14)
[2025-02-13] MEDS: ZINC SULFATE 220 MG CAPSULE (FP) GT SCH (10:15)
[2025-02-13] MEDS: MAGNESIUM SULF 50% (8.12 MEQ/2 ML-1 GM VIAL) IVPB ONE (11:09)
[2025-02-13] MEDS: INSULIN ASPART SLIDING SCALE (NOVOLOG) 1 VIAL SQ SCH (11:44)
[2025-02-13] MEDS: SODIUM PHOSPHATE - 15 MM in SODIUM CHLORIDE 250 ML IVPB ONE (13:43)
[2025-02-14 08:36] LABS: HEMATOCRIT 26.6 % (34.1-44.9); HEMOGLOBIN 8.3 g/dL (11.2-15.7); MCHC 31.2 g/dl (32.2-35.5); MEAN CELL VOLUME 92.4 fl (79.4-94.8); PLATELET COUNT # 253 x10^3/uL (182-369); RDW 21.6 % (12.4-16.4)
[2025-02-14 09:31] LABS: CALCIUM 7.5 mg/dL (8.5-10.1); POTASSIUM 4.3 mmol/L (3.5-5.1)
[2025-02-14 09:33] LABS: BLOOD UREA NITROGEN 13.3 mg/dL (7-18); MAGNESIUM 1.9 mg/dL (1.8-2.4)
[2025-02-14 09:36] LABS: CREATININE 0.3 mg/dL (0.55-1.3); PHOSPHOROUS 2.4 mg/dL (2.5-4.9)
[2025-02-14 10:20] VITALS: BP 113/69; PULSE 111; RESP 18; TEMP 98.2
[2025-02-14] MEDS: ZINC SULFATE 220 MG CAPSULE (FP) GT SCH (10:37)
[2025-02-14] MEDS: NAPH,MB-DB/K PH,MBDB POWDER PACKET GT SCH (12:06)
== END 2025-02-14 13:53 | DRG 383 ==
LOC: JER 12:21 → JERBED 21:45 → J5S 23:41
PROVIDERS: ADMIT Internal Medicine; ATTEND Internal Medicine
PROC: 5A1955Z Respiratory Ventilation, Greater than 96 Consecutive Hours (ICD-10-PCS; principal; 2025-02-03)
PROC: 05HA33Z Insertion of Infusion Device into Left Brachial Vein, Percutaneous Approach (ICD-10-PCS; 2025-02-08)
PROC: B51NZZA Fluoroscopy of Left Upper Extremity Veins, Guidance (ICD-10-PCS; 2025-02-08)
DX: L03.311 Cellulitis of abdominal wall (principal); E11.9 Type 2 diabetes mellitus without complications; I10 Essential (primary) hypertension; E78.5 Hyperlipidemia, unspecified; H40.10X0 Unspecified open-angle glaucoma, stage unspecified; H54.7 Unspecified visual loss; D50.9 Iron deficiency anemia, unspecified; G93.1 Anoxic brain damage, not elsewhere classified; J96.10 Chronic respiratory failure, unspecified whether with hypoxia or hypercapnia; L89.154 Pressure ulcer of sacral region, stage 4; L89.313 Pressure ulcer of right buttock, stage 3; L89.112 Pressure ulcer of right upper back, stage 2; L89.620 Pressure ulcer of left heel, unstageable; J90 Pleural effusion, not elsewhere classified; R13.10 Dysphagia, unspecified; E43 Unspecified severe protein-calorie malnutrition; Z68.30 Body mass index [BMI] 30.0-30.9, adult; R53.2 Functional quadriplegia; I48.91 Unspecified atrial fibrillation; E83.39 Other disorders of phosphorus metabolism; E87.6 Hypokalemia; Z86.711 Personal history of pulmonary embolism; Y83.8 Other surgical procedures as the cause of abnormal reaction of the patient, or of later complication, without mention of misadventure at the time of the procedure
CPT/HCPCS: 36415; 71045-TC-FY; 74177-TC; 80048; 80053; 80061; 82962; 83735; 84100; 85025; 85027; 85610; 85651; 85730; 86140; 86850; 86900; 86901; 87070; 87077; 87186; 87205; 93005; 93010; 94002; 99285-25; J0131; J1644; Q9967